=== PATIENT | male | born 1945 | race African-American/Black ===

== ENCOUNTER 2018-02-03 16:44 | Inpatient (IN) | payer OTHER, MEDICARE ==
[~2018-02-03] VITALS: Ht 162.6 cm; Wt 66.2 kg
[2018-02-03 17:38] LABS: ABSOLUTE BASOPHIL COUNT 0 /CUMM (0.0-0.2); ABSOLUTE EOSINOPHIL COUNT 0 /CUMM (0.0-0.7); ABSOLUTE GRANULOCYTE CT 4.4 /CUMM (1.4-6.5); ABSOLUTE LYMPH COUNT 0.9 /CUMM (1.2-3.4); ABSOLUTE MONOCYTE COUNT 0.3 /CUMM (0.10-0.60); BASOPHIL % 0.5 % (0.0-2.0); EOSINOPHIL % 0.2 % (0-5); GRANULOCYTE % 76.9 % (42.2-75.2); HEMATOCRIT 50.8 % (42-52); MEAN CORPUSCULAR HGB 30.6 PG (27.0-31.0); MEAN CORPUSCULAR HGB CONC 31.6 G/DL (33.0-37.0); MEAN CORPUSCULAR VOLUME 96.9 FL (80.0-94.0); MEAN PLATELET VOLUME 10.9 FL (7.4-10.4); PLATELET COUNT 227 /CUMM (130-400); RBC DISTRIBUTION WIDTH 13.1 % (11.5-14.5); RED BLOOD CELL CT 5.24 /CUMM (4.70-6.10); WHITE BLOOD CELL COUNT 5.7 /CUMM (4.8-10.8)
--- NOTE | 2018-02-03 18:43 | ED GENERAL ADULT ---
History of Present Illness General Chief Complaint: General Adult Stated Complaint: HIGH BLOOD SUGAR Source: patient, family Exam Limitations: poor historian Vital Signs & Intake/Output Vital Signs & Intake/Output Vital Signs Date Time Temp Pulse Resp B/P B/P Pulse O2 O2 Flow FiO2 Mean Ox Delivery Rate 02/05 1500 98.1 68 18 120/60 97 Room Air 02/05 1155 97 Room Air 02/05 1012 74 144/90 02/05 0714 98.4 74 18 144/90 93 02/04 2241 98.9 80 24 158/90 97 02/04 2114 77 158/90 ED Intake and Output 02/05 0000 02/04 1200 Intake Total 2050 1716 Output Total 450 300 Balance 1600 1416 Intake, IV 1000 1716 Intake, Oral 1050 Number 0 Bowel Movements Output, Urine 450 300 Patient 130 lb 132 lb Weight Weight Bed scale Measurement Method Allergies Coded Allergies: No Known Allergies (02/03/18) Reconcile Medications Amlodipine Besylate 5 MG TABLET 1 TAB PO DAILY BP (Reported) Aspirin (Ecotrin*) 81 MG TABLET.DR 1 TAB PO DAILY HEART/BLOOD (Reported) Atorvastatin Calcium (Lipitor) 40 MG TABLET 1 TAB PO DAILY CHOLESTEROL ( Reported) Fosinopril Sodium 20 MG TABLET 1 TAB PO DAILY BP (Reported) Metformin HCl (Glucophage) 850 MG TABLET 1 TAB PO BID DM (Reported) Metoprolol Tartrate 25 MG TABLET 1 TAB PO BID HEART/BP (Reported) Multiple Vitamin (Multivitamins) 1 EACH TABLET 1 TAB PO DAILY SUPPLEMENT ( Reported) Triage Note: [facility] FOR HIGH BLOOD SUGAR. PT IS VISITING FROM [place], C/O FEELING WEAK AND TIRED. PT WENT TO HIS DAUGHTER'S DOCTOR AND WAS TOLD HE HAD HIGH BLOODSUGAR AND WAS DEHYDRATED. FINGERSTICK > 500 IN TRIAGE. Triage Nurses Notes Reviewed? yes Onset: Last week Duration: week(s): Injury Environment: home HPI: 72 year old male with history of diabetes, former smoker, and two heart surgeries (patient unable to verbalize why and when) was sent to the emergency room by his primary care provider for dehydration. His blood sugar was > 500 at around 11:30 this morning. He recently came to visit his family here from [place]. His granddaughter states that he is only on oral medications and is non- compliant. He endorses sore throat, productive cough, unable to eat secondary to sore throat, thirsty, dysuria, frequent urination, constipation, vomiting earlier today (food) general weakness and body pain. He denies fevers, chills, chest pain, headache, dizziness, or diarrhea. He states he had the flu shot this year. (Berto Serrano) Past History Travel History Traveled to [place] past 21 day No Medical History Any Pertinent Medical History? see below for history Endocrine: diabetes Surgical History Surgical History: non-contributory Psychosocial History What is your primary language Turkish Tobacco Use: Quit >30 days ago ETOH Use: denies use Illicit Drug Use: denies illicit drug use Family History Hx Contributory? No (Berto Serrano) Review of Systems Review of Systems Constitutional: Reports: see HPI. EENTM: Reports: see HPI. Respiratory: Reports: see HPI. Cardiovascular: Reports: no symptoms. GI: Reports: see HPI. Genitourinary: Reports: see HPI. Musculoskeletal: Reports: see HPI. Skin: Reports: no symptoms. Neurological/Psychological: Reports: no symptoms. Hematologic/Endocrine: Reports: no symptoms. Immunologic/Allergic: Reports: no symptoms. All Other Systems: Reviewed and Negative (Berto Serrano) Physical Exam Physical Exam General Appearance: alert, awake Head: atraumatic, normal appearance Eyes: Bilateral: normal appearance. Ears, Nose, Throat: pharyngeal erythema, dry mucous membranes Neck: normal inspection, supple, full range of motion Respiratory: no respiratory distress, decreased breath sounds Cardiovascular: tachycardia Gastrointestinal: diffuse lower abdominal tenderness Back: decreased range of motion Extremities: normal inspection Neurologic/Psych: awake, alert, oriented x 3 Skin: intact Core Measures ACS in differential dx? No CVA/TIA Diagnosis: No Sepsis Present: No Sepsis Focused Exam Completed? No (Berto Serrano) Progress Differential Diagnoses I considered the following diagnoses in my evaluation of the patient: DKA, hyperosmolar, dehydration, acute kidney injury, electrolyte imbalance, Plan of Care: Orders Procedure Date/time Status BASIC ELECTROLYTES PLUS BUN&CR 02/06 0600 Active TROPONIN LEVEL 02/05 0555 Complete EKG 02/05 UNK Active RT: Reevaluation 02/04 2125 Active Current Medications Sig/Travon Start time Last Medication Dose Stop Time Status Admin Nitroglycerin 0.4 MG DAILY 02/06 0900 AC (Transderm Nitro 10MG (0.4 MG/Hr) Patch) Phosphate 250 MG PC AND AT BEDTIME 02/05 1300 AC 02/05 (Neutra-Phos) 1714 Insulin Aspart 0 TIDAC/HS 02/05 1200 AC 02/05 (NovoLOG) 1714 Heparin Sodium 5,000 UNIT Q8 02/04 1400 AC 02/05 (Porcine) 1324 Albuterol Sulfate 3 ML Q4P PRN 02/04 1045 AC 02/04 (Proventil) 1035 Amlodipine Besylate 5 MG DAILY 02/04 0900 AC 02/05 (Norvasc) 1012 Aspirin Buffered 81 MG DAILY 02/04 0900 AC 02/05 (Ecotrin) 1012 Atorvastatin Calcium 40 MG DAILY 02/04 0900 AC 02/05 (Lipitor) 1012 Benzonatate 100 MG TID 02/04 0900 AC 02/05 (Tessalon Capsule) 1325 Nystatin 5 ML BID 02/04 0900 AC 02/05 (Mycostatin Susp) 1013 Insulin Detemir 10 UNITS BID 02/04 0830 AC 02/05 (Levemir) 1018 Metoprolol Tartrate 25 MG BID 02/04 0011 AC 02/05 (Lopressor) 1012 Laboratory Tests 02/05/18 0625: Troponin I 0.02 02/05/18 0625: Anion Gap 8, Estimated GFR > 60, Glucose 242 H, Calcium 9.0, Phosphorus 2.3 L, Magnesium 1.8, Total Bilirubin 0.7, AST 28, ALT 34, Albumin 3.0 L, CBC w Diff NO MAN DIFF REQ, RBC 4.50 L, MCV 92.4, MCH 30.9, MCHC 33.5, RDW 12.3, MPV 10.6 H, Gran % 44.8, Lymphocytes % 44.7, Monocytes % 6.0, Eosinophils % 3.9, Basophils % 0.6, Absolute Granulocytes 1.7, Absolute Lymphocytes 1.7, Absolute Monocytes 0.2, Absolute Eosinophils 0.1, Absolute Basophils 0 Initial ED EKG: normal sinus rhythm, rate (88) (Berto Serrano) Departure Departure Disposition: STILL A PATIENT Condition: Stable Clinical Impression Primary Impression: Hyperosmolar non-ketotic state in patient with type 2 diabetes mellitus Secondary Impressions: Acute kidney injury, Hyponatremia Referrals: Patient Has No Primary Care Dr (PCP/Family) Departure Forms: Customer Survey General Discharge Information Admission Note Spoke With: Victorina Mart MD Documentation of Exam: Documentation of any treatments & extenuating circumstances including Concerns Regarding Discharge (functional status, medication knowledge or non-compliance, living conditions, etc.) that warrant an admission rather than observation: Patient will require IV fluids. Insulin drip. Endocrine consult. Repeat labs. Critical care management. (Berto Serrano) PA/[employer]EL[employer] Co-Sign Statement Statement: ED Attending supervision documentation- x I saw and evaluated the patient. I have also reviewed all the pertinent lab results and diagnostic results. I agree with the findings and the plan of care as documented in the PA's/[employer]EL[employer]'s documentation. Polyphagia, polydipsia, polyuria with elevated BS: HNKK [] I have reviewed the ED Record and agree with the PA's/[employer]EL[employer]'s documentation. [] Additions or exceptions (if any) to the PAs/[employer]EL[employer]'s note and plan are summarized below: [] (My CAO,David) Critical Care Note Critical Care Note Critical Care Time: 30-74 min (60) (Berto Serrano) VTE Mechanical Prophylaxis 02/03 UNK Active Current Medications Sig/Travon Start time Last Medication Dose Stop Time Status Admin Potassium Chloride 20 MEQ Q13H 02/04 1200 AC (KCl 20MEQ in D5W 1/ 2NS 1000ML) Dextrose/Sodium 1,000 ML Chloride (D5W-1/2 Normal Saline 1000ML) Insulin Aspart 0 Q4 02/04 1000 UNVr (NovoLOG) Amlodipine Besylate 5 MG DAILY 02/04 09 AC (Norvasc) Aspirin Buffered 81 MG DAILY 02/04 0900 AC (Ecotrin) Atorvastatin Calcium 40 MG DAILY 02/04 0900 AC (Lipitor) Insulin Detemir 10 UNITS BID 02/04 0830 UNVr (Levemir) Insulin Aspart 0 TIDAC 02/04 0800 CAN (NovoLOG) Nitroglycerin 0.5 GM Q6P PRN 02/04 0400 AC (Nitro-Bid) Dextrose/Sodium 1,000 ML Q10H 02/04 0145 CAN Chloride (D5W-1/2 Normal Saline 1000ML) Potassium Chloride 20 MEQ 02/04 0145 CAN (KCl 20MEQ in D5W 1/ 2NS 1000ML) Potassium Chloride 20 MEQ ONCE ONE 02/04 0145 AC 02/04 (KCl 20MEQ in D5W 02/04 1159 0145 2NS 1000ML) Dextrose/Sodium 1,000 ML Chloride (D5W-1/2 Normal Saline 1000ML) Metoprolol Tartrate 25 MG BID 02/04 0011 AC 02/04 (Lopressor) 0114 Heparin Sodium 25,000 UNIT Q24H 02/03 2215 AC 02/03 (Porcine) 222 (Heparin) Sodium Chloride 500 ML Labetalol HCl 10 MG ONCE ONE 02/03 2200 CAN (Trandate) 02/03 2201 Insulin Human Regular 100 UNIT Q24H 02/03 191 AC 02/03 (Novolin R (Insulin 2111 Drip)) Sodium Chloride 100 ML (Normal Saline 0.9%) Laboratory Tests 02/04/18 0500: APTT 104 *H 02/04/18 0430: Anion Gap 12, Estimated GFR > 60, Glucose 222 H, Calcium 9.5, Phosphorus 2.4 L , Magnesium 2.4 H, Total Bilirubin 0.7, AST 17, ALT 24, Albumin 3.5, TSH Pending, Free T4 Pending, Cortisol AM Sample Pending, CBC w Diff MAN DIFF ORDERED, RBC 4.69 L, MCV 92.9, MCH 30.8, MCHC 33.2, RDW 12.5, MPV 10.1, Gran % 49.6, Lymphocytes % 38.1, Monocytes % 8.4, Eosinophils % 3.2, Basophils % 0.7, Absolute Granulocytes 3.5, Segmented Neutrophils 47, Absolute Lymphocytes 2.7, Lymphocytes 44, Monocytes 8, Absolute Monocytes 0.6, Absolute Eosinophils 0.2, Basophils 1, Absolute Basophils 0, Platelet Estimate ADEQUATE, Normochromic RBCs VERIFIED, Ovalocytes FEW, ESR Westergren 25 H, Fld Total RBCs Counted 100 02/04/18 0300: Sodium Cancelled, Potassium Cancelled, Chloride Cancelled, Carbon Dioxide Cancelled, Anion Gap Cancelled, BUN Cancelled, Creatinine Cancelled, Glucose Cancelled, Calcium Cancelled, Phosphorus Cancelled, Magnesium Cancelled, Total Bilirubin Cancelled, AST Cancelled, ALT Cancelled, Albumin Cancelled, CBC w Diff Cancelled, WBC Cancelled, RBC Cancelled, Hgb Cancelled, Hct Cancelled, MCV Cancelled, MCH Cancelled, MCHC Cancelled, RDW Cancelled, Plt Count Cancelled, MPV Cancelled 02/04/18 0230: Lactic Acid 1.9 02/04/18 0230: Anion Gap 10, Estimated GFR > 60, Glucose 283 H, Calcium 9.3, Phosphorus 2.8, Magnesium 2.4 H, Total Bilirubin 0.7, AST 15 L, ALT 24, Albumin 3.4 L 02/04/18 0100: Troponin I Cancelled 02/04/18 0016: Lactic Acid 2.1 02/04/18 001: Anion Gap 12, Estimated GFR > 60, Glucose 389 H, Calcium 9.3, Phosphorus 2.7, Magnesium 2.4 H, Total Bilirubin 0.5, AST 13 L, ALT 26, Troponin I 0.05, C- Reactive Prot, Quant 0.7, Albumin 3.3 L 02/03/182109: Lactic Acid 2.6 H 02/03/182109: Anion Gap 15, Estimated GFR 54 L, BUN/Creatinine Ratio 24.6, Glucose 617 *H, Troponin I 0.05 02/03/18 194: Urine Opiates Screen < 100, Methadone Screen < 40, Barbiturate Screen < 60, Ur Phencyclidine Scrn < 6.00, Amphetamines Screen < 100, U Benzodiazepines Scrn < 85, Urine Cocaine Screen < 50, Urine Cannabis Screen < 5.00, Urine Color YEL, Urine Clarity HAZY H, Urine pH 6.0, Ur Specific [place] 1.010, Urine Protein NEG, Urine Ketones 15 H, Urine Nitrite NEG, Urine Bilirubin NEG, Urine Urobilinogen 0.2, Ur Leukocyte Esterase NEG, Ur Microscopic SEDIMENT EXAMINED, Urine RBC FEW H, Urine Hemoglobin TRACE-INTACT H, Urine Glucose >=1000 H 02/03/18 1705: Hemoglobin A1c Pending 02/03/18 1705: Anion Gap 20 H, Estimated GFR 46 L, BUN/Creatinine Ratio 22.7, Glucose 1197 *H , Serum Osmolality 349 H, Lactic Acid 3.2 H, Calcium 9.9, Total Bilirubin 0.8, AST 13 L, ALT 26, Alkaline Phosphatase 175 H, Troponin I 0.03, Total Protein 7.7, Albumin 4.5, Globulin 3.2, Albumin/Globulin Ratio 1.4, CBC w Diff NO MAN DIFF REQ, RBC 5.24, MCV 96.9 H, MCH 30.6, MCHC 31.6 L, RDW 13.1, MPV 10.9 H, Gran % 76.9 H, Lymphocytes % 16.5 L, Monocytes % 5.9, Eosinophils % 0.2, Basophils % 0.5, Absolute Granulocytes 4.4, Absolute Lymphocytes 0.9 L, Absolute Monocytes 0.3, Absolute Eosinophils 0, Absolute Basophils 0, Acetone Level POSITIVE AT 1:2 DIL 02/03/18 1653: Sodium Cancelled, Potassium Cancelled, Chloride Cancelled, Carbon Dioxide Cancelled, Anion Gap Cancelled, BUN Cancelled, Creatinine Cancelled, BUN/ Creatinine Ratio Cancelled, Glucose Cancelled, Calcium Cancelled, Total Bilirubin Cancelled, AST Cancelled, ALT Cancelled, Alkaline Phosphatase Cancelled, Total Protein Cancelled, Albumin Cancelled, Globulin Cancelled, Albumin/Globulin Ratio Cancelled 02/03/18 1650: Bicarbonate Actual 25, Mixed VBG pH 7.29 L, Mixed VBG pCO2 52 H, Mixed VBG O2 Saturation 42, Carboxyhemoglobin 0.8 L, O2 Concentration % R/A, Phlebotomy Draw Site VENOUS Microbiology 02/04 0430 UPPER RESP: Surveillance Culture - RECD 02/04 158 LOWER RESP: Respiratory Culture - COLB 02/04 158 LOWER RESP: Gram Stain - COLB 02/03 2215 NASOPHARYN: Influenza Virus A & B Rapid Smear - COMP Initial ED EKG: normal sinus rhythm, rate (88) Departure Departure Disposition: STILL A PATIENT Condition: Stable Clinical Impression Primary Impression: Hyperosmolar non-ketotic state in patient with type 2 diabetes mellitus Secondary Impressions: Acute kidney injury, Hyponatremia Referrals: Patient Has No Primary Care Dr (PCP/Family) Departure Forms: Customer Survey General Discharge Information Admission Note Spoke With: Barron CAO,Victorina Documentation of Exam: Documentation of any treatments & extenuating circumstances including Concerns Regarding Discharge (functional status, medication knowledge or non-compliance, living conditions, etc.) that warrant an admission rather than observation: Patient will require IV fluids. Insulin drip. Endocrine consult. Repeat labs. Critical care management. Critical Care Note Critical Care Note Critical Care Time: 30-74 min (60)
--- NOTE | 2018-02-03 19:26 | RADIOLOGY REPORT ---
EXAMINATION: XR CHEST CLINICAL INFORMATION: Cough. COMPARISON: None TECHNIQUE: 2 views of the chest were obtained. FINDINGS: The cardiac silhouette is normal in size. There is calcific atherosclerosis of the aorta. No focal consolidation to indicate pneumonia. No pleural effusion or pneumothorax. Degenerative changes of the thoracic spine. IMPRESSION: No pneumonia, pneumothorax or pleural effusion.
--- NOTE | 2018-02-03 20:22 | Admission Certification ---
Admission Certification Certification Statement - As attending physician, I certify that at the time of - admission, based on clinical presentation, severity of - symptoms, need for further diagnostic testing and - therapeutic interventions, and risk of adverse outcomes - without in-hospital treatment, in my clinical assessment, - this patient requires an acute hospital stay for a minimum - of two nights or longer. I have also considered psychsocial - factors such as support system, advanced age, financial - issues, cognitive issues, and failed out-patient treatments, - past re-admission history, safety of patient, and lack of - compliance as applicable. Specific rationale supporting this admission is: Hyperosmolar hyperglycemic state in this patient with type 2 diabetes.
--- NOTE | 2018-02-03 21:19 | History & Physical ---
Zandra Morton 02/03/182118: General Information and HPI MD Statement: I have seen and personally examined CONCEPCIÓN SCHAEFER and documented this H&P. The patient is a 72 year old M who presented with a patient stated chief complaint of Source of Information: patient, family Exam Limitations: clinical condition History of Present Illness: Mr Schaefer is a 72 year old gentleman w/ a PMHx of type 2 diabetes, former smoker, CAD s/p PCI x2 (unclear about the dates, and type of stent ), was brought to the hospital with a chief concern of elevated blood glucose by a PCP. He is originally from [facility], and has seen a PCP of one his family members the am of admission. He is a poor historian, and history was very limited given his altered mentation. He was known to be in his usual state of health, until last week. He has been visiting his son and [id number] from [place], and wanted to rest after his senior care. Reported having abdominal discomfort and chest pain approximately 6 days ago, which subsided on its own. He couldnt describe the kind of pain, he had at that time. Reported worseing of chest pain that started in the am, which was located in the center of the chest; describes it as dull ache, unable to grade the severity, with radiation to the neck. Reported chest discomfort while he was in the ER, and stated that it is improved. He did not receive any morphine or NTG. No dyspnea, or palpitations. He also developed abdominal pain around the same time, which was occassional, and unsure if this was associated w/ food. Reporeted sore throat, occasional cough and neck pain. He also had increased thirst, increased frequency of urination, nausea one episode of vomiting. No fever, chills, diarrhea. Family reported that he has been having memory lapses, and unsure if he was taking any of his medications at all. No changes in apetitie. He sees test hole driller Dr. Manuel Rodriges ( ph [phone] ), and unsure about his previous hospitalizations or work up. Allergies/Medications Allergies: Coded Allergies: No Known Allergies (02/03/18) Past History Travel History Traveled to [place] past 21 day No Medical History Cardiovascular: CAD Endocrine: diabetes Surgical History Surgical History: non-contributory Past Family/Social History Family History Relations & Conditions if any Relation not specified for: *No pertinent family history Psychosocial History ETOH Use: denies use Illicit Drug Use: denies illicit drug use Functional Ability ADLs Independent: dressing, eating, toileting, bathing. Ambulation: independent IADLs Independent: shopping, housework, finances, medication admin. Unknown: food prep, telephone, transportation. Review of Systems Review of Systems Constitutional: Reports: see HPI. Cardiovascular: Reports: chest pain. Denies: palpitations. Respiratory: Denies: cough. GI: Reports: nausea. Denies: changes in stool. Genitourinary: Denies: dysuria. Musculoskeletal: Denies: back pain. Skin: Denies: change in skin color. Neurological/Psychological: Denies: ataxia, headache, numbness. Hematologic/Endocrine: Denies: bleeding. Exam & Diagnostic Data Last 24 Hrs of Vital Signs/I&O Vital Signs Date Time Temp Pulse Resp B/P B/P Pulse O2 O2 Flow FiO2 Mean Ox Delivery Rate 02/04 0114 78 20 150/80 02/03 2349 98.6 80 20 169/84 96 Room Air 02/03 2305 98.4 77 20 117/67 96 Room Air 02/03 2209 98.2 86 20 146/78 100 Room Air 02/03 2100 98.7 85 20 174/83 94 Room Air 02/03 1952 98.0 88 22 174/84 98 Room Air 02/03 1929 96 02/03 1845 Room Air 02/03 1649 96.0 96 20 131/85 94 Room Air Intake & Output 02/04 0800 02/04 0000 02/03 1600 Intake Total 2100 Output Total 400 Balance 1700 Intake, IV 2100 Output, Urine 400 Patient 124 lb Weight Weight Reported by Patient Measurement Method Physical Exam General Appearance Oriented X3, Cooperative, No Acute Distress, sleepy, drowsy Skin No Rashes, No Breakdown, No Significant Lesion Skin Temp/Moisture Exam: Warm/Dry Sepsis Skin Exam (color): Normal for Ethnicity HEENT Atraumatic, PERRLA, EOMI, dry mucosa swelling and erythema of carito adenoids purulent streaks on the posterior pharyngeal wall, peritonisillar Neck Supple, No JVD, No thryomegaly, +2 Carotid Pulse wo Bruit, No LAD Lymphatic Axillary nl, Cervical nl Cardiovascular Regular Rate, Normal S1, Normal S2, No Murmurs Lungs Normal Air Movement Abdomen Normal Bowel Sounds, Soft, No Tenderness, No Hepatospenomegaly Neurological Normal Speech, Strength at 5/5 X4 Ext, Normal Tone, Sensation Intact, Cranial Nerves 3-12 NL, Reflexes 2+ Extremities No Clubbing, No Cyanosis, No Edema, Normal Pulses, No Tenderness/ Swelling Vascular Pulses Symmetrical Sepsis Peripheral Pulse Location: Dorsalis Pedis Sepsis Peripheral Pulse Exam: Normal Sepsis Cap Refill Exam: >2 sec Last 24 Hrs of Labs/Rajinder: Laboratory Tests 02/04/18 0100: Troponin I Cancelled 02/04/18 0016: Lactic Acid 2.1 02/04/1815: Anion Gap 12, Estimated GFR > 60, Glucose 389 H, Calcium 9.3, Phosphorus 2.7, Magnesium 2.4 H, Total Bilirubin 0.5, AST 13 L, ALT 26, Troponin I 0.05, Albumin 3.3 L 02/03/182109: Lactic Acid 2.6 H 02/03/182109: Anion Gap 15, Estimated GFR 54 L, BUN/Creatinine Ratio 24.6, Glucose 617 *H, Troponin I 0.05 02/03/18 194: Urine Opiates Screen < 100, Methadone Screen < 40, Barbiturate Screen < 60, Ur Phencyclidine Scrn < 6.00, Amphetamines Screen < 100, U Benzodiazepines Scrn < 85, Urine Cocaine Screen < 50, Urine Cannabis Screen < 5.00, Urine Color YEL, Urine Clarity HAZY H, Urine pH 6.0, Ur Specific [place] 1.010, Urine Protein NEG, Urine Ketones 15 H, Urine Nitrite NEG, Urine Bilirubin NEG, Urine Urobilinogen 0.2, Ur Leukocyte Esterase NEG, Ur Microscopic SEDIMENT EXAMINED, Urine RBC FEW H, Urine Hemoglobin TRACE-INTACT H, Urine Glucose >=1000 H 02/03/18 170: Hemoglobin A1c Pending 02/03/18 170: Anion Gap 20 H, Estimated GFR 46 L, BUN/Creatinine Ratio 22.7, Glucose 1197 *H , Serum Osmolality 349 H, Lactic Acid 3.2 H, Calcium 9.9, Total Bilirubin 0.8, AST 13 L, ALT 26, Alkaline Phosphatase 175 H, Troponin I 0.03, Total Protein 7.7, Albumin 4.5, Globulin 3.2, Albumin/Globulin Ratio 1.4, CBC w Diff NO MAN DIFF REQ, RBC 5.24, MCV 96.9 H, MCH 30.6, MCHC 31.6 L, RDW 13.1, MPV 10.9 H, Gran % 76.9 H, Lymphocytes % 16.5 L, Monocytes % 5.9, Eosinophils % 0.2, Basophils % 0.5, Absolute Granulocytes 4.4, Absolute Lymphocytes 0.9 L, Absolute Monocytes 0.3, Absolute Eosinophils 0, Absolute Basophils 0, Acetone Level POSITIVE AT 1:2 DIL 02/03/18 1653: Sodium Cancelled, Potassium Cancelled, Chloride Cancelled, Carbon Dioxide Cancelled, Anion Gap Cancelled, BUN Cancelled, Creatinine Cancelled, BUN/ Creatinine Ratio Cancelled, Glucose Cancelled, Calcium Cancelled, Total Bilirubin Cancelled, AST Cancelled, ALT Cancelled, Alkaline Phosphatase Cancelled, Total Protein Cancelled, Albumin Cancelled, Globulin Cancelled, Albumin/Globulin Ratio Cancelled 02/03/18 1650: Bicarbonate Actual 25, Mixed VBG pH 7.29 L, Mixed VBG pCO2 52 H, Mixed VBG O2 Saturation 42, Carboxyhemoglobin 0.8 L, O2 Concentration % R/A, Phlebotomy Draw Site VENOUS Microbiology 02/04 015 LOWER RESP: Respiratory Culture - ORD 02/04 158 LOWER RESP: Gram Stain - ORD 02/03 2215 NASOPHARYN: Influenza Virus A & B Rapid Smear - COMP Diagnostic Data EKG Results NSR, ST elevations in V1-V4, unsure if they are chronic. CXR Results No pneumonia, pneumothorax or pleural effusion. Assessment/Plan Assessment: Mr Schaefer is a 72-year-old gentleman with a past history of type 2 diabetes, coronary artery disease status post PCI stents (nature of stents unknown), medication noncompliance came into the hospital with a chief concern of hyperglycemia, chest pain, abdominal pain associated with nausea and vomiting likely secondary to HHS. At the time of [id number] 96.0, pulse rate 96, respiration 20, blood pressure 131/85, pulse ox 94% on room air. Stool hemoccult negative. EKG revealed NSR, ST evevations in V1-V4, which could be related to LVH associated depolarizations usually seen in hypertenive patients, but STEMI is not completely ruled out. Pertinent lab findings: WBC 5.7, hemoglobin 6.1, MCV 96.9, platelet count 227. Sodium 127 (corrected sodium- 144), potassium 6.2, chloride 83, carbon dioxide 24, anion gap 20, BUN 34, creatinine 1.5. Glucose 1197, hemoglobin [id number], serum osmolality 349, lactic acid 3.2, Liver chemistries-AST 13, ALT 26, alkaline phosphatase is 175, troponin I-0.03. Venous pH 7.29. Acetone positive. Serum osmolality 330. Lactic acid 3.2-->2.6-->2.1. Utox negative for opiates. Influenza, strep throat negative. Etiology in this case is likely HHS, given high blood glucose, and serum osmolality; the cause of HHS is due to medication noncompliance secondary to dementia or increasing confusion related to age. Other causes such as infection , myocardial infarction are not completely ruled out. He has sore throat, but influenza and strep throat have been negative so far. Other sources of infection are not evident at this time. For the treatment of HHS, he should be admitted to intensive care unit and aggressively hydrated with at least 2-3 L of fluid, preferably half normal saline given his corrected sodium. He should be started on regular insulin drip with 0.1 units/kilogram/hour, titrating down off drip as blood sugar allows. In regards to ST elevation changes on EKG associated with chest pain, which started almost a week ago and worsened this a.m. with no elevation in cardiac enzymes, makes us think that this could not be cardiac related; that said CO needs to be ruled out. He has a history of coronary artery disease and multiple risk factors making CO a possibility. He should be treated with aspirin, IV heparin, beta lala and statin regardless. ST elevation changes in anterior leads could likely be due to hypertrophy of left ventricle, leading to repolarization changes which according to the test hole driller are seen in certain patients. EKG was reviewed with the test hole driller, Dr. Kraus. Given his hyperosmolar state, he is also at risk of developing venous thromboembolism, and does has to be started on IV heparin. The data regarding regular for dose anticoagulation in patients such as these, is not very clear, which needs to be addressed as [id number] basis. Discussed with the spinner hydraulic about anticoagulation. Problem list: #1 unstable angina #2 HHS #3 hypertension #4 hyperlipidemia #5. ARTEM ? #6 Hyperkalemia likely due to electrolyte shifts. Below is the plan: 1. Respiratory-continues to have dry cough, with no leukocytosis and normal chest x-ray, would continue to monitor closely. Does not require any supplemental oxygen at this time. Strep throat has been negative, but would benefit from checking lower respiratory cultures if the patient developed any fever or shortness of breath. No antibiotics are indicated at this time. Chloraseptic lozenges. 2. Infectious-monitor white count closely. No antibiotics are indicated. Given his pain in his neck, would add neck CT to already existing order of CTA. Requested the radiologist to get enough images to visualize neck architecture, and avoid excessive radiation by ordering another test. 3. Circulatory-given ST elevation changes, and chest pain he needs to be ruled out for CO. Given the onset of symptoms, the troponins would've peaked by now, which is not the case making CO unlikely. Regardless cardiac enzymes and electrocardiograms need to be trended. Check echocardiogram. Obtain medical records from the test hole driller. Unsure if the patient had any cardiac catheterization recently, or had any stress test. If the patient develops any worsening chest pain, has elevated troponins, Dr. Kraus needs to be contacted. Since the blood pressure was elevated at the time of presentation, aortic dissection was considered in the differential. Check CTA to rule out dissection of aorta. Restart home doses of anti-hypertensives except lisinopril. 4. Hematology-stable at this time. 5. Metabolic-management of HHS with intravenous fluids, half-normal saline and insulin drip. Titrate down insulin drip to decrease the blood sugar levels appropriately. Change the intravenous fluids to D5 half normal at 300 mg/ deciliters of blood sugar. Would change the insulin to subcutaneous insulin in the a.m. with a correction factor of at least 0.3. Hold metformin at this time. He has slight elevation in serum creatinine which need to be monitored closely. It also should be kept in mind, that he received IV contrast recently. Replete electrolytes accordingly. BEP q2hr, and check anion gap. Accuchecks q1hr. 6. Alimentary-clear liquid diet. 7. Neurology-stable at this time. Housekeeping: #1 DVT prophylaxis-IV heparin. #2 full code. ICU check list- #1 Central line- none #2 Arterial line none #3 Stevens catheter none #4 Rectal tube none #5 NG tube none #6 IV/peripheral line- yes 02/03/18 #7 IV drips- 1/2 NS. #8 Vent settings: none. #9 pressors- none. As Ranked By This Provider Problem List: 1. Hyponatremia 2. Acute kidney injury Core Measures/Misc (07/04) Acute Coronary Syndrome ACS Diagnosis: Yes Congestive Heart Failure Congestive Heart Failure Diagnosis No Cerebrovascular Accident CVA/TIA Diagnosis: No VTE (View Protocol) VTE Risk Factors Acute Medical Illness No Mechanical VTE Prophylaxis d/t N/A MechProphylax Ordered No VTE Pharm Prophylaxis d/t NA PharmProphylax ordered Sepsis (View protocol) Sepsis Present: No Barron CAO, [facility] 02/03/182130: General Information and HPI Allergies/Medications Home Med list Amlodipine Besylate 5 MG TABLET 1 TAB PO DAILY BP (Reported) Aspirin (Ecotrin*) 81 MG TABLET.DR 1 TAB PO DAILY HEART/BLOOD (Reported) Atorvastatin Calcium (Lipitor) 40 MG TABLET 1 TAB PO DAILY CHOLESTEROL ( Reported) Fosinopril Sodium 20 MG TABLET 1 TAB PO DAILY BP (Reported) Metformin HCl (Glucophage) 850 MG TABLET 1 TAB PO BID DM (Reported) Metoprolol Tartrate 25 MG TABLET 1 TAB PO BID HEART/BP (Reported) Multiple Vitamin (Multivitamins) 1 EACH TABLET 1 TAB PO DAILY SUPPLEMENT ( Reported) Attending MD Review Statement Attending Statement Attending MD Statement: examined this patient, discuss w/resident/PA/WOMEN'S HEALTH CARE NURSE PRACTITIONER, agreed w/resident/PA/WOMEN'S HEALTH CARE NURSE PRACTITIONER, discussed with family, reviewed images, amended to note Attending Assessment/Plan: 72 yo M former smoker with h/o T2DM on metformin, CAD s/p 2 stents, HTN, possible stroke, is sent in by PCP for elevated blood glucose levels. Patient is resident of [facility] and follows physicians there. His Balloon Maker is Dr. Teddy Rodriges ([phone] at [address] [place] [address]). Patient is visiting his son/ daughter in law at [place]. Patient is a limited historian. Apparently 4 days ago, he started feeling unwell. He c/o bilateral chest pain and abdominal pain associated with an episode of nausea and vomiting today. His chest pain is a dullache and seems to have gotten worse today. He also reports that chest pain gets worse with coughing. Family reported he is coughing up white to yellow phlegm. C/o subjective fever, no chills. He also c/o sore throat , dry mouth, left sided neck pain with difficulty swallowing/ inability to eat. Reports polyuria and polydipsia. Constipation+. Tends to fall asleep frequently. His voice is garbled which family reports is new due to his sore throat and dry mouth. No facial droop, weakness or stroke like symptoms. Family is not aware of his medical conditions and what medications he takes until today. They feel he has not been taking his medications. He also has memory issues and is forgetful. He is an ex-smoker (>20 yrs ago), and drinks alcohol occasionally. Vitals: afebrile, HR 70-90's, BP 150/80, sats 96% RA. Exam as above. Labs: no leukocytosis, H/H 16.1/50.8, MCV 96.9, Na 127, K 6.2, bicarb 24, AG 20, BUN 34, creat 1.5, glucose 1197, S. Osm 349, lactic acid 3.2, LFTs normal, trop 0.03. Urine glucosuria. Urine tox negative. Acetone positive. Influenza and strep throat is negative. VB.29/52/42/25. CXR: no pneumonia or pleural effusion. EKG: sinus rhythm with ST elevations noted in V1-V4, LVH, Qtc 421 (no old EKG to compare). Repeat EKG showed similar ST elevations in V2-V5, now with TWI in inferior leads. Assessment and plan: 1. Hyperosmolar hyperglycemic states in a type 2 diabetic male 2/2 noncompliance with medications 2. Hyperkalemia 3. High AG metabolic acidosis, lactic acidosis 4. Pseudohyponatremia 5. Acute EKG changes, unstable angina, cannot rule out pericarditis (although EKG is not showing typical changes). Alternatively these could be LVH induced changes. 6. History of CAD s/p stents 7. ARTEM 8. Productive cough, possible bronchitis, Flu and strep negative. Cannot rule out oral thrush. 9. Essential hypertension - Admit to ICU - Vitals Q1 hour - Accucheks Q1 - Patient received 3 L NS --> will change to Half normal saline - Trend lactic acid - Insulin drip at 5/hr, titrate based on sugars - Check HbA1c - ICU bundle Q2 hours - Once sugars <250 change fluids to D5 1/2NS @ 250/hr - Clear liquid diet - Endo consult (Dr. Booth) - Plan to transition to novolog SS in AM - Serial EKG and troponin - Check lipid panel, TSH, free T4 - Obtain echocardiogram - Aspirin 325 mg followed by 81 mg daily - Cardio consult (Dr. Kraus) informed of EKG changes - IV heparin initiated given unstable angina and that patients with hyperosmolar hyperglycemia are at increased risk for VTE - Guaiac all stools (initial guaiac negative) - CTA with aortic dissection protocol, also to include the neck region to assess for any abnormality - Continue metoprolol and statin - O2 supplementation - Will add nitropaste - Obtain records from Balloon Maker at [facility] - [facility] consult - Symptomatic treatment of cough/bronchitis with nebs and cough suppressants. - Check sputum culture - Add Oral swish and swallow, lozenges. - Check urine lytes, trend renal functions after aggressive hydration - Hold fosinopril and metformin given ARTEM, avoid nephrotoxic meds - Stevens catheter to monitor I/O's - GI ppx - IV PPI - If any acute change in mental status, please obtain CT head DVT ppx IV heparin. Full code. TTS > 65 mins CTA: 1. No aortic dissection. 2. Slight ectasia of the proximal aspect of the descending thoracic aorta. Otherwise unremarkable appearance of the major vasculature. 3. Mild emphysema, greatest in the upper lobes. Atelectasis in the lungs with no consolidation.
[2018-02-03] MEDS ORDERED: NORVASC10 M1 PO (21:29)
[2018-02-03] MEDS ORDERED: LIPITOR40 M1 PO (21:29)
[2018-02-03] MEDS ORDERED: MULTIVITAMINS1 EAC9 PO (21:30)
[2018-02-03] MEDS ORDERED: METOPROLOL TART25 M1 PO (21:30)
[2018-02-03] MEDS ORDERED: AMLODIPINE BESYL5 M1 PO (21:30)
[2018-02-03] MEDS ORDERED: GLUCOPHAGE850 M2 PO (21:32)
[2018-02-03] MEDS ORDERED: ASPIRIN EC81 M1 PO (21:32)
[2018-02-03] MEDS ORDERED: FOSINOPRIL SODI20 M1 PO (21:32)
--- NOTE | 2018-02-04 00:03 | CT SCAN REPORT ---
STUDY PERFORMED: CTA OF THE CHEST WITH AND WITHOUT CONTRAST CLINICAL INFORMATION: Chest pain with EKG changes. DESCRIPTION: Initial noncontrast CT of the chest was performed. Contrast timing was performed at the level of the distal descending thoracic aorta. Subsequently, arterial phase multidetector volumetric imaging was performed through the chest following the administration of 95 mL Optiray 320 intravenous contrast. No contrast reaction reported Sagittal and coronal reformatted images were obtained on the technologist workstation. Three-dimensional MIP reformatted imaging was performed and reviewed. Total exam dose-length product 372 mGy-cm COMPARISON: Chest radiograph from today FINDINGS: Vascular: 1. The ascending thoracic aorta is normal in course and caliber without evidence of dissection. Coronary artery calcifications are present. 2. The aortic arch is normal in course and caliber without evidence of dissection. There is 2 vessel branching configuration of the arch with common origin of the left common carotid artery and innominate artery. The great vessel origins are widely patent. 3. There is slightly ectatic appearance of the proximal aspect of the descending thoracic aorta immediately beyond the aortic arch. The distal aspect of the arch measures 1.9 cm in diameter. The proximal descending thoracic aorta measures up to 2.7 cm. At the level of the mid descending thoracic aorta, this measures 2.1 cm, with the distal descending thoracic aorta measuring 2.1 cm as well. There is no dissection. 4. The visualized abdominal aorta is unremarkable. 5. There is no central pulmonary embolism. Nonvascular: CHEST: The central airways are patent. There is mild centrilobular emphysema. Minimal dependent atelectasis bilaterally. Linear atelectasis in the right middle lobe and lingula. No dense consolidation. No pneumothorax or pleural effusion. The heart is mildly prominent. No pericardial effusion. There is no mediastinal, hilar or axillary lymphadenopathy. There are no chest wall masses. UPPER ABDOMEN: Unremarkable. OSSEOUS STRUCTURES: No acute or suspicious osseous abnormality. Mild degenerative changes in the spine. IMPRESSION: 1. No aortic dissection. 2. Slight ectasia of the proximal aspect of the descending thoracic aorta. Otherwise unremarkable appearance of the major vasculature. 3. Mild emphysema, greatest in the upper lobes. Atelectasis in the lungs with no consolidation.
--- NOTE | 2018-02-04 03:03 | Event Note ---
Event Note Event Note: Situation: Spoke to Dr Booth about transitioning the patient to [place] insulin and whether his diet could be restarted. Brief: Per phone conversation, Dr Booth recommended that the patient can be started on 20 KCl in D5-1/2 NS @100ml/hr and to continue the insulin drip overnight. Target blood glucose is to be between 120-180. The patient can be transitioned to [place] insulin in the am with breakfast. He can take PO water but his diet should be resumed from breakfast.
[2018-02-04 03:09] VITALS: BP 150/80
[2018-02-04 05:00] LABS: ABSOLUTE BASOPHIL COUNT 0 /CUMM (0.0-0.2); ABSOLUTE EOSINOPHIL COUNT 0.2 /CUMM (0.0-0.7); ABSOLUTE GRANULOCYTE CT 3.5 /CUMM (1.4-6.5); ABSOLUTE LYMPH COUNT 2.7 /CUMM (1.2-3.4); ABSOLUTE MONOCYTE COUNT 0.6 /CUMM (0.10-0.60); BASOPHIL % 0.7 % (0.0-2.0); EOSINOPHIL % 3.2 % (0-5); GRANULOCYTE % 49.6 % (42.2-75.2); MEAN CORPUSCULAR HGB 30.8 PG (27.0-31.0); MEAN CORPUSCULAR HGB CONC 33.2 G/DL (33.0-37.0); MEAN CORPUSCULAR VOLUME 92.9 FL (80.0-94.0); MEAN PLATELET VOLUME 10.1 FL (7.4-10.4); PLATELET COUNT 218 /CUMM (130-400); RBC DISTRIBUTION WIDTH 12.5 % (11.5-14.5); RED BLOOD CELL CT 4.69 /CUMM (4.70-6.10)
[2018-02-04 05:08] LABS: HEMATOCRIT 43.5 % (42-52)
[2018-02-04 07:07] LABS: PTT 104 SEC (25-37)
--- NOTE | 2018-02-04 07:56 | Cons- Endocrinology ---
General Information and HPI Consulting Request Date of Consult: 02/04/18 Requested By: medical team Reason for Consult: Hyperglycemic hyperosmolar state Source of Information: patient, family Exam Limitations: poor historian History of Present Illness: This 72-year-old male was brought to the emergency room by his granddaughter because he was feeling weak and tired. He was brought up from [facility] by his son on the Wednesday prior to admission. His son noted during the drive he had a lot of increased urination and he had to stop 3 times for a trip to the bathroom. Patient apparently had some abdominal discomfort and some chest pain and also some constipation. When he was brought to the emergency room where he was found to have a very high sugar of 1197. The patient has a known history of type 2 diabetes and was on metformin. He was not however checking his blood sugar. He also has a history of coronary artery disease status post stents. His son states he has been told that he had a recent colonoscopy which was negative. During the night the patient was treated with IV fluids and then IV insulin drip. She is presently on D5 half-normal saline with 20 mEq KCl and an insulin drip at 2 U/h. Allergies/Medications Allergies: Coded Allergies: No Known Allergies (02/03/18) Home Med List: Amlodipine Besylate 5 MG TABLET 1 TAB PO DAILY BP (Reported) Aspirin (Ecotrin*) 81 MG TABLET.DR 1 TAB PO DAILY HEART/BLOOD (Reported) Atorvastatin Calcium (Lipitor) 40 MG TABLET 1 TAB PO DAILY CHOLESTEROL ( Reported) Fosinopril Sodium 20 MG TABLET 1 TAB PO DAILY BP (Reported) Metformin HCl (Glucophage) 850 MG TABLET 1 TAB PO BID DM (Reported) Metoprolol Tartrate 25 MG TABLET 1 TAB PO BID HEART/BP (Reported) Multiple Vitamin (Multivitamins) 1 EACH TABLET 1 TAB PO DAILY SUPPLEMENT ( Reported) Current Medications: Current Medications Sig/Travon Start time Last Medication Dose Route Stop Time Status Admin Albuterol Sulfate 3 ML ONCE ONE 02/03 1845 DC 02/03 INH 02/03 Amlodipine Besylate 5 MG DAILY 02/04 900 AC PO Aspirin Buffered 81 MG DAILY 02/04 900 AC PO Aspirin Buffered 325 MG ONCE ONE 02/03 2130 DC 02/03 PO 02/03 2131 232 Atorvastatin Calcium 40 MG DAILY 02/04 900 AC PO Calcium Gluconate 0 .STK-MED ONE 02/03 1934 DC IV Calcium Gluconate 1 GM ONCE ONE 02/03 191 DC 02/03 Sodium Chloride 100 ML IV 02/03 2014 195 Dextrose/Sodium 1,000 ML Q10H 02/04 0145 CAN Chloride IV Heparin Sodium 25,000 UNIT Q24H 02/03 2215 AC 02/03 (Porcine) IV 2229 Sodium Chloride 500 ML Insulin Aspart 0 TIDAC 02/04 0800 CAN SC Insulin Human Regular 10 UNITS ONCE ONE 02/03 1915 DC 02/03 IV 02/03 191 195 Insulin Human Regular 100 UNIT Q24H 02/03 1915 AC 02/03 Sodium Chloride 100 ML IV 211 Labetalol HCl 10 MG ONCE ONE 02/03 220 CAN IV 02/03 220 Metoprolol Tartrate 25 MG BID 02/04 0011 AC 02/04 PO 0114 Nitroglycerin 0.5 GM Q6P PRN 02/04 0400 AC TOP Potassium Chloride 20 MEQ Q13H 02/04 1200 AC Dextrose/Sodium 1,000 ML IV Chloride Potassium Chloride 10 MEQ Q1H 02/04 0545 DC IV 02/04 0646 Potassium Chloride 20 MEQ 02/04 0145 CAN IV Potassium Chloride 20 MEQ ONCE ONE 02/04 0145 AC 02/04 Dextrose/Sodium 1,000 ML IV 02/04 1159 0145 Chloride Sodium Chloride 1,000 ML Q8H 02/03 2200 DC IV 02/04 0159 Sodium Chloride 1,000 ML Q20H 02/03 2100 DC 02/03 IV 02/04 0059 2112 Sodium Chloride 1,000 ML BOLUS ONE 02/03 1800 DC 02/03 IV 02/03 185 1829 Sodium Chloride 1,000 ML BOLUS ONE 02/03 1800 DC 02/03 IV 02/03 185 195 Review of Systems Review of Systems Constitutional: Denies: chills, fever. Cardiovascular: Reports: chest pain. Respiratory: Denies: cough, short of breath. GI: Reports: constipation. Genitourinary: Reports: frequency, nocturia. Past History Travel History Traveled to [place] past 21 day No Medical History Cardiovascular: CAD Endocrine: diabetes Surgical History Surgical History: non-contributory Family History Relations & Conditions If Any: Relation not specified for: *No pertinent family history Psychosocial History Where Do You Live? Home Smoking Status: Never Smoked ETOH Use: denies use Illicit Drug Use: denies illicit drug use Functional Ability ADLs Independent: dressing, eating, toileting, bathing. Ambulation: independent IADLs Independent: shopping, housework, finances, medication admin. Unknown: food prep, telephone, transportation. Exam & Diagnostic Data Last 24 Hrs of Vital Signs/I&O Vital Signs Date Time Temp Pulse Resp B/P B/P Pulse O2 O2 Flow FiO2 Mean Ox Delivery Rate 02/04 0400 98 Room Air 02/04 0326 98 Room Air 02/04 0309 96.4 78 16 150/80 98 Room Air 02/04 0200 98 Room Air 02/04 0114 78 20 150/80 04/ 2349 98.6 80 20 169/84 96 Room Air 02/03 2305 98.4 77 20 117/67 96 Room Air 02/03 2209 98.2 86 20 146/78 100 Room Air 02/03 2100 98.7 85 20 174/83 94 Room Air 02/03 1952 98.0 88 22 174/84 98 Room Air 02/03 1929 96 02/03 1845 Room Air 02/03 1649 96.0 96 20 131/85 94 Room Air Intake & Output 02/04 0800 02/04 0000 02/03 1600 Intake Total 1716 2100 Output Total 300 400 Balance 1416 1700 Intake, IV 1716 2100 Output, Urine 300 400 Patient 132 lb 124 lb Weight Weight Bed scale Reported by Patient Measurement Method Vital Signs Date Time Temp Pulse Resp B/P B/P Pulse O2 O2 Flow FiO2 Mean Ox Delivery Rate 02/04 0400 98 Room Air 02/04 0326 98 Room Air 02/04 0309 96.4 78 16 150/80 98 Room Air 02/04 0200 98 Room Air 02/04 0114 78 20 150/80 02/03 2349 98.6 80 20 169/84 96 Room Air 02/03 2305 98.4 77 20 117/67 96 Room Air 02/03 2209 98.2 86 20 146/78 100 Room Air 02/03 2100 98.7 85 20 174/83 94 Room Air 02/03 1952 98.0 88 22 174/84 98 Room Air 02/03 1929 96 04 1845 Room Air 02/03 1649 96.0 96 20 131/85 94 Room Air Intake & Output 02/04 0800 02/04 0000 02/03 1600 Intake Total 1716 2100 Output Total 300 400 Balance 1416 1700 Intake, IV 1716 2100 Output, Urine 300 400 Patient 132 lb 124 lb Weight Weight Bed scale Reported by Patient Measurement Method Physical Exam General Appearance: lethargic Head: normal appearance Neck: normal inspection Respiratory: normal breath sounds Cardiovascular: regular rate/rhythm Gastrointestinal: normal bowel sounds, soft Extremities: normal inspection Labs/Rajinder Results: Laboratory Tests 02/04 02/04 02/04 0500 0430 0300 Chemistry Sodium (137 - 145 mmol/L) 149 H Cancelled Potassium (3.5 - 5.1 mmol/L) 3.8 Cancelled Chloride (98 - 107 mmol/L) 109 H Cancelled Carbon Dioxide (22 - 30 mmol/L) 28 Cancelled Anion Gap (5 - 16) 12 Cancelled BUN (9 - 20 mg/dL) 23 H Cancelled Creatinine (0.7 - 1.2 mg/dL) 1.0 Cancelled Estimated GFR (>60 ml/min) > 60 Glucose (65 - 99 mg/dL) 222 H Cancelled Calcium (8.4 - 10.2 mg/dL) 9.5 Cancelled Phosphorus (2.5 - 4.5 mg/dL) 2.4 L Cancelled Magnesium (1.6 - 2.3 mg/dL) 2.4 H Cancelled Total Bilirubin (0.2 - 1.3 mg/dL) 0.7 Cancelled AST (17 - 59 U/L) 17 Cancelled ALT (21 - 72 U/L) 24 Cancelled Albumin (3.5 - 5.0 g/dL) 3.5 Cancelled TSH (0.270 - 4.200 uIU/mL) Pending Free T4 (0.78 - 2.44 ng/dL) Pending Cortisol AM Sample (4.46 - 22.7 ug/dL) Pending Coagulation APTT (25 - 37 SEC) 104 *H Hematology CBC w Diff MAN DIFF ORDERED Cancelled WBC (4.8 - 10.8 /CUMM) 7.0 Cancelled RBC (4.70 - 6.10 /CUMM) 4.69 L Cancelled Hgb (14.0 - 18.0 G/DL) 14.4 Cancelled Hct (42 - 52 %) 43.5 Cancelled MCV (80.0 - 94.0 FL) 92.9 Cancelled MCH (27.0 - 31.0 PG) 30.8 Cancelled MCHC (33.0 - 37.0 G/DL) 33.2 Cancelled RDW (11.5 - 14.5 %) 12.5 Cancelled Plt Count (130 - 400 /CUMM) 218 Cancelled MPV (7.4 - 10.4 FL) 10.1 Cancelled Gran % (42.2 - 75.2 %) 49.6 Lymphocytes % (20.5 - 51.1 %) 38.1 Monocytes % (1.7 - 9.3 %) 8.4 Eosinophils % (0 - 5 %) 3.2 Basophils % (0.0 - 2.0 %) 0.7 Absolute Granulocytes (1.4 - 6.5 /CUMM) 3.5 Segmented Neutrophils (42.2 - 75.2 %) 47 Absolute Lymphocytes (1.2 - 3.4 /CUMM) 2.7 Lymphocytes (20.5 - 51.1 %) 44 Monocytes (1.7 - 9.3 %) 8 Absolute Monocytes (0.10 - 0.60 /CUMM) 0.6 Absolute Eosinophils (0.0 - 0.7 /CUMM) 0.2 Basophils (0.0 - 2.0 %) 1 Absolute Basophils (0.0 - 0.2 /CUMM) 0 Platelet Estimate (ADEQUATE) ADEQUATE Normochromic RBCs VERIFIED Ovalocytes FEW ESR Westergren (0 - 10 MM) 25 H Other Body Source Fld Total RBCs Counted (%) 100 02/04 02/04 02/04 02/04 02/04 0230 0230 0100 0016 0016 Chemistry Sodium (137 - 145 mmol/L) 145 145 Potassium (3.5 - 5.1 mmol/L) 3.8 3.7 Chloride (98 - 107 mmol/L) 108 H 105 Carbon Dioxide (22 - 30 mmol/L) 28 27 Anion Gap (5 - 16) 10 12 BUN (9 - 20 mg/dL) 26 H 28 H Creatinine (0.7 - 1.2 mg/dL) 1.0 1.1 Estimated GFR (>60 ml/min) > 60 > 60 Glucose (65 - 99 mg/dL) 283 H 389 H Lactic Acid (0.7 - 2.1 mmol/L) 1.9 2.1 Calcium (8.4 - 10.2 mg/dL) 9.3 9.3 Phosphorus (2.5 - 4.5 mg/dL) 2.8 2.7 Magnesium (1.6 - 2.3 mg/dL) 2.4 H 2.4 H Total Bilirubin (0.2 - 1.3 mg/dL) 0.7 0.5 AST (17 - 59 U/L) 15 L 13 L ALT (21 - 72 U/L) 24 26 Troponin I (<0.11 ng/ml) Cancelled 0.05 C-Reactive Prot, Quant (<1.0 mg/dL) 0.7 Albumin (3.5 - 5.0 g/dL) 3.4 L 3.3 L 02/03 Chemistry Sodium (137 - 145 mmol/L) 139 Potassium (3.5 - 5.1 mmol/L) 4.2 Chloride (98 - 107 mmol/L) 99 Carbon Dioxide (22 - 30 mmol/L) 25 Anion Gap (5 - 16) 15 BUN (9 - 20 mg/dL) 32 H Creatinine (0.7 - 1.2 mg/dL) 1.3 H Estimated GFR (>60 ml/min) 54 L BUN/Creatinine Ratio (7 - 25 %) 24.6 Glucose (65 - 99 mg/dL) 617 *H Lactic Acid (0.7 - 2.1 mmol/L) 2.6 H Troponin I (<0.11 ng/ml) 0.05 Toxicology Urine Opiates Screen (>2000 NG/ML) < 100 Methadone Screen (>300 NG/ML) < 40 Barbiturate Screen (>200 NG/ML) < 60 Ur Phencyclidine Scrn (>25 NG/ML) < 6.00 Amphetamines Screen (>1000 NG/ML) < 100 U Benzodiazepines Scrn (>200 NG/ML) < 85 Urine Cocaine Screen (>300 NG/ML) < 50 Urine Cannabis Screen (>50 NG/ML) < 5.00 Urines Urine Color (YEL,AMB,STR) YEL Urine Clarity (CLEAR) HAZY H Urine pH (5.0 - 8.0) 6.0 Ur Specific [place] (1.001 - 1.035) 1.010 Urine Protein (NEG,<30 MG/DL) NEG Urine Ketones (NEG) 15 H Urine Nitrite (NEG) NEG Urine Bilirubin (NEG) NEG Urine Urobilinogen (0.1 - 1.0 EU/dl) 0.2 Ur Leukocyte Esterase (NEG) NEG Ur Microscopic SEDIMENT EXAMINED Urine RBC (0 - 5 /HPF) FEW H Urine Hemoglobin (NEG) TRACE-INTACT H Urine Glucose (N MG/DL) >=1000 H 02/03 02/03 1705 1705 Chemistry Sodium (137 - 145 mmol/L) 127 L Potassium (3.5 - 5.1 mmol/L) 6.2 *H Chloride (98 - 107 mmol/L) 83 L Carbon Dioxide (22 - 30 mmol/L) 24 Anion Gap (5 - 16) 20 H BUN (9 - 20 mg/dL) 34 H Creatinine (0.7 - 1.2 mg/dL) 1.5 H Estimated GFR (>60 ml/min) 46 L BUN/Creatinine Ratio (7 - 25 %) 22.7 Glucose (65 - 99 mg/dL) 1197 *H Hemoglobin A1c Pending Serum Osmolality (285 - 295 MOSM/KG) 349 H Lactic Acid (0.7 - 2.1 mmol/L) 3.2 H Calcium (8.4 - 10.2 mg/dL) 9.9 Total Bilirubin (0.2 - 1.3 mg/dL) 0.8 AST (17 - 59 U/L) 13 L ALT (21 - 72 U/L) 26 Alkaline Phosphatase (< 127 U/L) 175 H Troponin I (<0.11 ng/ml) 0.03 Total Protein (6.3 - 8.2 g/dL) 7.7 Albumin (3.5 - 5.0 g/dL) 4.5 Globulin (1.9 - 4.2 gm/dL) 3.2 Albumin/Globulin Ratio (1.1 - 2.2 %) 1.4 Hematology CBC w Diff NO MAN DIFF REQ WBC (4.8 - 10.8 /CUMM) 5.7 RBC (4.70 - 6.10 /CUMM) 5.24 Hgb (14.0 - 18.0 G/DL) 16.1 Hct (42 - 52 %) 50.8 MCV (80.0 - 94.0 FL) 96.9 H MCH (27.0 - 31.0 PG) 30.6 MCHC (33.0 - 37.0 G/DL) 31.6 L RDW (11.5 - 14.5 %) 13.1 Plt Count (130 - 400 /CUMM) 227 MPV (7.4 - 10.4 FL) 10.9 H Gran % (42.2 - 75.2 %) 76.9 H Lymphocytes % (20.5 - 51.1 %) 16.5 L Monocytes % (1.7 - 9.3 %) 5.9 Eosinophils % (0 - 5 %) 0.2 Basophils % (0.0 - 2.0 %) 0.5 Absolute Granulocytes (1.4 - 6.5 /CUMM) 4.4 Absolute Lymphocytes (1.2 - 3.4 /CUMM) 0.9 L Absolute Monocytes (0.10 - 0.60 /CUMM) 0.3 Absolute Eosinophils (0.0 - 0.7 /CUMM) 0 Absolute Basophils (0.0 - 0.2 /CUMM) 0 Toxicology Acetone Level (NEGATIVE) POSITIVE AT 1:2 DIL 02/03 02/03 1653 1650 Blood Gas Bicarbonate Actual (22 - 26 MEQ/L) 25 Mixed VBG pH (7.31 - 7.41 PH) 7.29 L Mixed VBG pCO2 (41 - 51 TORR) 52 H Mixed VBG O2 Saturation (35 - 45 TORR) 42 Carboxyhemoglobin (1.5 - 5.0 %) 0.8 L O2 Concentration % R/A Chemistry Sodium Cancelled Potassium Cancelled Chloride Cancelled Carbon Dioxide Cancelled Anion Gap Cancelled BUN Cancelled Creatinine Cancelled BUN/Creatinine Ratio Cancelled Glucose Cancelled Calcium Cancelled Total Bilirubin Cancelled AST Cancelled ALT Cancelled Alkaline Phosphatase Cancelled Total Protein Cancelled Albumin Cancelled Globulin Cancelled Albumin/Globulin Ratio Cancelled Miscellaneous Phlebotomy Draw Site VENOUS Assessment/Plan Assessment/Plan This 72-year-old male with a known history of type 2 diabetes presents with a hyper glycemic hyperosmolar state. He has been treated with an insulin drip during the night with improvement in his blood sugar. His electrolytes have been repleted. His sodium this morning is however elevated at 149. The patient remains somewhat lethargic. At this time we can switch the patient to subcu insulin. We can begin a diabetic diet as tolerated consistent carbohydrate 1. I would continue D5 half-normal saline with 20 of KCl at 100 cc/h until the patient is eating well.. We can begin Levemir 10 units twice a day the first dose stat. In addition we can place him on sliding scale NovoLog every 4 hours for blood sugars above 150. Sliding scale NovoLog every 4 hours should be less than 150 give no insulin, 151-200 give 3 units NovoLog, 201-250 give 4 units NovoLog, 251-300 give 5 units NovoLog, 301-350 give 6 units NovoLog, 351-400 give 7 units NovoLog. 1 hour after the first dose of Levemir and NovoLog we can shut off the insulin drip. If the patient begins to eat well, we can switch his sliding scale NovoLog to before meals and stop his IV fluids.. The patient needs further evaluation with thyroid function tests, vitamin B12, and also a cortisol level added to the morning blood. The patient still has evidence of a metabolic encephalopathy. If his mental status does not improve we should obtain a CT scan of his head. Once the patient is more active we can taper him off the heparin drip and place him on subcu heparin. Consult Acknowledgment - Thank you for your consult request.
[2018-02-04 08:00] VITALS: BP 114/68
--- NOTE | 2018-02-04 08:06 | Cons- CRCU ---
Cortney CAO,Garima 02/04/18 0806: General Information and HPI Consulting Request Date of Consult: 02/04/18 Requested By: Primary Team Reason for Consult: HHS EKG Changes Source of Information: patient Exam Limitations: poor historian History of Present Illness: Mr Schaefer is a 72 year old gentleman w/ a PMHx of type 2 diabetes, former smoker, CAD s/p PCI x2 (unclear about the dates, and type of stent ), was brought to the hospital with a chief concern of elevated blood glucose by a PCP. He is originally from [facility], and has seen a PCP of one his family members the am of admission. He is a poor historian, and history was very limited given his altered mentation. Patient mentions chest discomfort and abdominal pain a week ago that resolved on its own. Reported worseing of chest pain that started yesterday morning, which was located in the center of the chest; dull ache, unable to grade the severity , radiating to the neck. Had another episode of chest discomfort while he was in the ER, and stated that it has improved. He did not receive any morphine or NTG. No dyspnea, or palpitations. He also had increased thirst, increased frequency of urination, nausea one episode of vomiting. At the time of [id number] 96.0, pulse rate 96, respiration 20, blood pressure 131/85, pulse ox 94% on room air. Stool hemoccult negative. EKG revealed NSR, ST evevations in V1-V4, which could be related to LVH associated depolarizations usually seen in hypertenive patients, but STEMI is not completely ruled out. Pertinent lab findings: WBC 5.7, hemoglobin 6.1, MCV 96.9, platelet count 227. Sodium 127 (corrected sodium- 144), potassium 6.2, chloride 83, carbon dioxide 24, anion gap 20, BUN 34, creatinine 1.5. Glucose 1197, hemoglobin [id number], serum osmolality 349, lactic acid 3.2, Liver chemistries-AST 13, ALT 26, alkaline phosphatase is 175, troponin I-0.03. Venous pH 7.29. Acetone positive. Serum osmolality 330. Lactic acid 3.2-->2.6-->2.1. Utox negative for opiates. Influenza, strep throat negative. Allergies/Medications Allergies: Coded Allergies: No Known Allergies (02/03/18) Home Med List: Amlodipine Besylate 5 MG TABLET 1 TAB PO DAILY BP (Reported) Aspirin (Ecotrin*) 81 MG TABLET.DR 1 TAB PO DAILY HEART/BLOOD (Reported) Atorvastatin Calcium (Lipitor) 40 MG TABLET 1 TAB PO DAILY CHOLESTEROL ( Reported) Fosinopril Sodium 20 MG TABLET 1 TAB PO DAILY BP (Reported) Metformin HCl (Glucophage) 850 MG TABLET 1 TAB PO BID DM (Reported) Metoprolol Tartrate 25 MG TABLET 1 TAB PO BID HEART/BP (Reported) Multiple Vitamin (Multivitamins) 1 EACH TABLET 1 TAB PO DAILY SUPPLEMENT ( Reported) Review of Systems Review of Systems Constitutional: Reports: malaise. EENTM: Reports: no symptoms. Cardiovascular: Reports: chest pain. Respiratory: Reports: no symptoms. GI: Reports: no symptoms. Genitourinary: Reports: frequency. Musculoskeletal: Reports: no symptoms. Skin: Reports: no symptoms. Neurological/Psychological: Reports: no symptoms. Hematologic/Endocrine: Reports: no symptoms. Immunologic/Allergic: Reports: no symptoms. All Other Systems: Reviewed and Negative Past History Travel History Traveled to [place] past 21 day No Medical History Cardiovascular: CAD Endocrine: diabetes Surgical History Surgical History: non-contributory Family History Relations & Conditions If Any: Relation not specified for: *No pertinent family history Psychosocial History Where Do You Live? Home Smoking Status: Never Smoked ETOH Use: denies use Illicit Drug Use: denies illicit drug use Functional Ability ADLs Independent: dressing, eating, toileting, bathing. Ambulation: independent IADLs Independent: shopping, housework, finances, medication admin. Unknown: food prep, telephone, transportation. Exam & Diagnostic Data Last 24 Hrs of Vital Signs/I&O Vital Signs Date Time Temp Pulse Resp B/P B/P Pulse O2 O2 Flow FiO2 Mean Ox Delivery Rate 02/04 1036 Room Air Room Air 02/04 0800 98 Room Air 02/04 0800 97.3 68 18 114/68 98 Room Air 02/04 0400 98 Room Air 02/04 0326 98 Room Air 02/04 0309 96.4 78 16 150/80 98 Room Air 02/04 0200 98 Room Air 02/04 0114 78 20 150/80 02/03 2349 98.6 80 20 169/84 96 Room Air 02/03 2305 98.4 77 20 117/67 96 Room Air 02/03 2209 98.2 86 20 146/78 100 Room Air 02/03 2100 98.7 85 20 174/83 94 Room Air 02/03 1952 98.0 88 22 174/84 98 Room Air 02/03 1929 96 02/03 1845 Room Air 02/03 1649 96.0 96 20 131/85 94 Room Air Intake & Output 02/04 1600 02/04 0800 02/04 0000 Intake Total 1716 2100 Output Total 300 400 Balance 1416 1700 Intake, IV 1716 2100 Output, Urine 300 400 Patient 132 lb 124 lb Weight Weight Bed scale Reported by Patient Measurement Method Physical Exam General Appearance: well developed/nourished, alert, awake, comfortable Head: atraumatic, normal appearance Respiratory: chest non-tender, lungs clear Cardiovascular: regular rate/rhythm Gastrointestinal: normal bowel sounds, soft, non-tender Extremities: normal inspection, normal range of motion, Trace pedal edema Cranial Nerves: normal hearing, normal speech, PERRL Last 48 Hrs of Labs/Rajinder: Laboratory Tests 02/04/18 0500: APTT 104 *H 02/04/18 0430: Anion Gap 12, Estimated GFR > 60, Glucose 222 H, Calcium 9.5, Phosphorus 2.4 L , Magnesium 2.4 H, Total Bilirubin 0.7, AST 17, ALT 24, Troponin I 0.05, Albumin 3.5, TSH 1.920, Free T4 1.19, Cortisol AM Sample 20.0, CBC w Diff MAN DIFF ORDERED, RBC 4.69 L, MCV 92.9, MCH 30.8, MCHC 33.2, RDW 12.5, MPV 10.1, Gran % 49.6, Lymphocytes % 38.1, Monocytes % 8.4, Eosinophils % 3.2, Basophils % 0.7, Absolute Granulocytes 3.5, Segmented Neutrophils 47, Absolute Lymphocytes 2.7, Lymphocytes 44, Monocytes 8, Absolute Monocytes 0.6, Absolute Eosinophils 0.2, Basophils 1, Absolute Basophils 0, Platelet Estimate ADEQUATE, Normochromic RBCs VERIFIED, Ovalocytes FEW, ESR Westergren 25 H, Fld Total RBCs Counted 100 02/04/18 0300: Sodium Cancelled, Potassium Cancelled, Chloride Cancelled, Carbon Dioxide Cancelled, Anion Gap Cancelled, BUN Cancelled, Creatinine Cancelled, Glucose Cancelled, Calcium Cancelled, Phosphorus Cancelled, Magnesium Cancelled, Total Bilirubin Cancelled, AST Cancelled, ALT Cancelled, Albumin Cancelled, CBC w Diff Cancelled, WBC Cancelled, RBC Cancelled, Hgb Cancelled, Hct Cancelled, MCV Cancelled, MCH Cancelled, MCHC Cancelled, RDW Cancelled, Plt Count Cancelled, MPV Cancelled 02/04/18 0230: Lactic Acid 1.9 02/04/18 0230: Anion Gap 10, Estimated GFR > 60, Glucose 283 H, Calcium 9.3, Phosphorus 2.8, Magnesium 2.4 H, Total Bilirubin 0.7, AST 15 L, ALT 24, Albumin 3.4 L 02/04/18 0100: Troponin I Cancelled 02/04/18 0016: Lactic Acid 2.1 02/04/18 001: Anion Gap 12, Estimated GFR > 60, Glucose 389 H, Calcium 9.3, Phosphorus 2.7, Magnesium 2.4 H, Total Bilirubin 0.5, AST 13 L, ALT 26, Troponin I 0.05, C- Reactive Prot, Quant 0.7, Albumin 3.3 L 02/03/182109: Lactic Acid 2.6 H 02/03/182109: Anion Gap 15, Estimated GFR 54 L, BUN/Creatinine Ratio 24.6, Glucose 617 *H, Troponin I 0.05 02/03/18 194: Urine Opiates Screen < 100, Methadone Screen < 40, Barbiturate Screen < 60, Ur Phencyclidine Scrn < 6.00, Amphetamines Screen < 100, U Benzodiazepines Scrn < 85, Urine Cocaine Screen < 50, Urine Cannabis Screen < 5.00, Urine Color YEL, Urine Clarity HAZY H, Urine pH 6.0, Ur Specific [place] 1.010, Urine Protein NEG, Urine Ketones 15 H, Urine Nitrite NEG, Urine Bilirubin NEG, Urine Urobilinogen 0.2, Ur Leukocyte Esterase NEG, Ur Microscopic SEDIMENT EXAMINED, Urine RBC FEW H, Urine Hemoglobin TRACE-INTACT H, Urine Glucose >=1000 H 02/03/18 1705: Hemoglobin A1c 15.5 H 02/03/18 1705: Anion Gap 20 H, Estimated GFR 46 L, BUN/Creatinine Ratio 22.7, Glucose 1197 *H , Serum Osmolality 349 H, Lactic Acid 3.2 H, Calcium 9.9, Total Bilirubin 0.8, AST 13 L, ALT 26, Alkaline Phosphatase 175 H, Troponin I 0.03, Total Protein 7.7, Albumin 4.5, Globulin 3.2, Albumin/Globulin Ratio 1.4, CBC w Diff NO MAN DIFF REQ, RBC 5.24, MCV 96.9 H, MCH 30.6, MCHC 31.6 L, RDW 13.1, MPV 10.9 H, Gran % 76.9 H, Lymphocytes % 16.5 L, Monocytes % 5.9, Eosinophils % 0.2, Basophils % 0.5, Absolute Granulocytes 4.4, Absolute Lymphocytes 0.9 L, Absolute Monocytes 0.3, Absolute Eosinophils 0, Absolute Basophils 0, Acetone Level POSITIVE AT 1:2 DIL 02/03/18 1653: Sodium Cancelled, Potassium Cancelled, Chloride Cancelled, Carbon Dioxide Cancelled, Anion Gap Cancelled, BUN Cancelled, Creatinine Cancelled, BUN/ Creatinine Ratio Cancelled, Glucose Cancelled, Calcium Cancelled, Total Bilirubin Cancelled, AST Cancelled, ALT Cancelled, Alkaline Phosphatase Cancelled, Total Protein Cancelled, Albumin Cancelled, Globulin Cancelled, Albumin/Globulin Ratio Cancelled 02/03/18 1650: Bicarbonate Actual 25, Mixed VBG pH 7.29 L, Mixed VBG pCO2 52 H, Mixed VBG O2 Saturation 42, Carboxyhemoglobin 0.8 L, O2 Concentration % R/A, Phlebotomy Draw Site VENOUS Microbiology 02/03 2215 NASOPHARYN: Influenza Virus A & B Rapid Smear - COMP Assessment/Plan CRCU Impression/Plan: Mr Schaefer is a 72-year-old gentleman with a past history of type 2 diabetes, coronary artery disease status post PCI stents (nature of stents unknown), medication noncompliance came into the hospital with a chief concern of hyperglycemia, chest pain, abdominal pain associated with nausea and vomiting likely secondary to HHS. At the time of [id number] 96.0, pulse rate 96, respiration 20, blood pressure 131/85, pulse ox 94% on room air. Stool hemoccult negative. EKG revealed NSR, ST evevations in V1-V4, which could be related to LVH associated depolarizations usually seen in hypertenive patients, but STEMI is not completely ruled out. Pertinent lab findings: WBC 5.7, hemoglobin 6.1, MCV 96.9, platelet count 227. Sodium 127 (corrected sodium- 144), potassium 6.2, chloride 83, carbon dioxide 24, anion gap 20, BUN 34, creatinine 1.5. Glucose 1197, hemoglobin [id number], serum osmolality 349, lactic acid 3.2, Liver chemistries-AST 13, ALT 26, alkaline phosphatase is 175, troponin I-0.03. Venous pH 7.29. Acetone positive. Serum osmolality 330. Lactic acid 3.2-->2.6-->2.1. Utox negative for opiates. Influenza, strep throat negative. Patient is admitted to the ICU for management of following issues; # Hyperosmolar hyperglycemic states in a type 2 diabetic male 2/2 noncompliance with medications # High AG metabolic acidosis, lactic acidosis # Pseudohyponatremia - resolved # Hyperkalemia - resolved # Acute EKG changes,?? unstable angina, cannot rule out pericarditis (although EKG is not showing typical changes). Alternatively these could be LVH induced changes. # History of CAD s/p stents # ARTEM - resolved # Essential hypertension Respiratory Continues to have dry cough, with no leukocytosis and normal chest x-ray, would continue to monitor closely. Does not require any supplemental oxygen at this time. Strep throat has been negative, but would benefit from checking lower respiratory cultures if the patient developed any fever or shortness of breath. - Monitor off antibiotic - Chloraseptic lozenges. Infectious See ABove Circulatory Given ST elevation changes, and chest pain was ruled out for MS. Patient continued to have ST elevations in leads V1 to V4 negative troponins. Echocardiogram obtained showing Borderline reduced global left ventricular systolic function. Borderline normal left ventricular ejection fraction estimated at 50-55% and abnormal relaxation filling pattern of the left ventricle for age (stage 1 diastolic dysfunction). Obtain medical records from the bulldozer press operator. Unsure if the patient had any cardiac catheterization recently, or had any stress test. Since the blood pressure was elevated at the time of presentation, aortic dissection was considered in the differential. Check CTA was done to rule out dissection of aorta. Home doses of anti- hypertensives resumed except lisinopril. Patient was started to Heparin initially but was stopped in the morning because of negative troponins. Hematology; None Metabolic; HHS managed with intravenous fluids, half-normal saline and insulin drip. Insulin drip titrated down depensing on blood sugar levels. IV fluids changed to D5 half normal at 300 mg/deciliters of blood sugar. Metformin held. AG of 20 initially, likely from lactic acidosis, Gap closed once lactic acid trended down. Electrolytes repleted accordingly. - Off insulin drip - Levemir insulin 10 units twice a day - NovoLog sliding scale - Accu-Cheks - f/u Endocrinology recommendations. Alimentary Carbohydrate consistent diet. Neurology None. Nephro; ARTEM - resolved He had slight elevation in serum creatinine which could from IV contrast he recieved for CTA. - Cr currently stable. - Avoid any nephrotoxic medications. DVT prophylaxis- ALPS and subcutaneous heparin Patient is full code. Problem List: 1. Hyperosmolar non-ketotic state in patient with type 2 diabetes mellitus 2. Acute kidney injury 3. Hyponatremia Consult Acknowledgment - Thank you for your consult request. Justyn Devries MD 02/04/18 1157: Assessment/Plan CRCU Other Findings/Comments: Justyn Epps M.D. have examined this patient, reviewed available EMR data, personally reviewed images, discussed with resident/PA/TUNNEL WORKER, discussed management plan with housestaff and nursing staff, discussed managment plan all of healthcare providers, discussed management plan with patient and/or family, agreed with resident/PA/TUNNEL WORKER. The past history and parts of the chart have been autopopulated. Impression 72 year old man * in icu for hyperosmolar hyperglycemia requiring insulin drip, now resolved * increased troponins Plan -endocrinology, cardiology follow up -glucose monitoring -off insulin gtt -downgrade to telemetry TTS 35 min Consult Acknowledgment - Thank you for your consult request.
--- NOTE | 2018-02-04 10:14 | ECHOCARDIOGRAM REPORT ---
CONCEPCIÓN HANLEY Age: 72 : 1945 Gender: M Exam Date: 02/04/2018 08:39 Exam Location: [facility] Ht (in): 65 Wt (lb): 124 BSA: 1.60 BP: 114 / 68 Ordering Physician: Victorina Mart MD Referring Physician: Victorina Mart MD Technologist: Chan Bejarano [facility] Room Number: 105 Indications: Chest Pain Rhythm: Sinus Technical Quality: Fair FINDINGS Left Ventricle Normal size left ventricle. Normal left ventricular wall thickness with proximal septal thickening. Borderline reduced global left ventricular systolic function. Borderline normal left ventricular ejection fraction estimated at 50-55%. Abnormal relaxation filling pattern of the left ventricle for age (stage 1 diastolic dysfunction). Right Ventricle Normal right ventricular size and function. Right Atrium Normal right atrial size. Left Atrium Normal left atrial size. Mitral Valve Mitral valve thickened. Trace mitral regurgitation. Aortic Valve Trileaflet aortic valve. Mild aortic sclerosis. No aortic stenosis. Trace aortic regurgitation. Tricuspid Valve Structurally normal tricuspid valve. Trace tricuspid regurgitation. No evidence of pulmonary hypertension. Right ventricular systolic pressure estimated to be within the normal range at 26 mmHg. Pulmonic Valve Pulmonic valve not well visualized, grossly normal. No pulmonic regurgitation. Pericardium No pericardial effusion. Great Vessels Normal size aortic root. Normal size inferior vena cava. CONCLUSIONS Normal size left ventricle. Normal left ventricular wall thickness with proximal septal thickening. Borderline reduced global left ventricular systolic function. Borderline normal left ventricular ejection fraction estimated at 50-55%. Abnormal relaxation filling pattern of the left ventricle for age (stage 1 diastolic dysfunction). Normal right ventricular size and function. Normal Trace mitral regurgitation. Trace aortic regurgitation. Trace tricuspid regurgitation. No evidence of pulmonary hypertension. atrial size. Maurice Kraus M.D. (Electronically Signed) Final Date: 04 February 2018 10:13 MEASUREMENTS (Male / Female) Normal Values 2D ECHO LV Diastolic Diameter PLAX 4.1 cm 4.2 - 5.9 / 3.9 - 5.3 cm LV Systolic Diameter PLAX 3.0 cm 2.1 - 4.0 cm LV Fractional Shortening PLAX 26.8 % 25 - 46 % LV Ejection Fraction 2D Teich 52.8 % IVS Diastolic Thickness 0.9 cm LVPW Diastolic Thickness 0.9 cm LV Relative Wall Thickness 0.4 RV Internal Dim ED PLAX 2.5 cm 1.9 - 3.8 cm LVOT Diameter 2.2 cm Aortic Root Diameter 3.3 cm LA Systolic Diameter LX 2.8 cm 3.0 - 4.0 / 2.7 - 3.8 cm Ascending Aorta Diameter 2.6 cm DOPPLER AV Peak Velocity 117.0 cm/s AV Peak Gradient 5.5 mmHg AV Mean Velocity 81.6 cm/s AV Mean Gradient 3.0 mmHg AV Velocity Time Integral 22.4 cm AI Deceleration [place] 98.1 cm/s AI Peak Velocity 228.0 cm/s AI Pressure Half Time 681.0 ms AI Peak Gradient 20.8 mmHg LVOT Peak Velocity 72.9 cm/s LVOT Peak Gradient 2.1 mmHg LVOT Mean Velocity 42.5 cm/s LVOT Mean Gradient 1.0 mmHg LVOT Velocity Time Integral 13.8 cm LVOT Stroke Volume 52.5 cm AV Area Cont Eq vti 2.3 cm AV Area Cont Eq pk 2.4 cm MV Peak Velocity 81.6 cm/s MV Peak Gradient 2.7 mmHg MV Mean Velocity 38.0 cm/s MV Mean Gradient 1.0 mmHg Mitral E Point Velocity 37.5 cm/s Mitral A Point Velocity 77.0 cm/s Mitral E to A Ratio 0.5 MV PHT Velocity 50.4 cm/s MV Deceleration [place] 192.0 cm/s MV Pressure Half Time 78.8 ms MV Area PHT 2.8 cm MV Deceleration Time 250.0 ms TR Peak Velocity 229.0 cm/s TR Peak Gradient 21.0 mmHg Right Atrial Pressure 5.0 mmHg Pulmonary Artery Systolic Pressu 26.0 mmHg Right Ventricular Systolic Press 26.0 mmHg PV Peak Velocity 80.0 cm/s PV Peak Gradient 2.6 mmHg PV Mean Velocity 50.0 cm/s PV Mean Gradient 1.0 mmHg PV Velocity Time Integral 13.4 cm LV E' Lateral Velocity 5.8 cm/s Mitral E to LV E' Lateral Ratio 6.5 LV E' Septal Velocity 4.1 cm/s Mitral E to LV E' Septal Ratio 9.2
--- NOTE | 2018-02-04 14:07 | Cons- Cardiology ---
General Information and HPI Consulting Request Date of Consult: 02/04/18 Requested By: Justyn Devries MD Reason for Consult: Chest pain. Source of Information: patient Exam Limitations: language barrier History of Present Illness: Mr. Catracho Schaefer is a 72-year-old male of [place] descent with a history of former tobacco use, hypertension, dyslipidemia, diabetes mellitus, and coronary artery disease (s/p AL with stents x2) who, while visiting [place] from [place], [place] developed loss of appetite, nausea, and recurrent episodes of retching and who presented to the ED 02/03/2018 with complaints of chest pain. Allergies/Medications Allergies: Coded Allergies: No Known Allergies (02/03/18) Home Med List: Amlodipine Besylate 5 MG TABLET 1 TAB PO DAILY BP (Reported) Aspirin (Ecotrin*) 81 MG TABLET.DR 1 TAB PO DAILY HEART/BLOOD (Reported) Atorvastatin Calcium (Lipitor) 40 MG TABLET 1 TAB PO DAILY CHOLESTEROL ( Reported) Fosinopril Sodium 20 MG TABLET 1 TAB PO DAILY BP (Reported) Metformin HCl (Glucophage) 850 MG TABLET 1 TAB PO BID DM (Reported) Metoprolol Tartrate 25 MG TABLET 1 TAB PO BID HEART/BP (Reported) Multiple Vitamin (Multivitamins) 1 EACH TABLET 1 TAB PO DAILY SUPPLEMENT ( Reported) Review of Systems Review of Systems: A 14 point system review was obtained and was noncontributory, other than as above. Past History Travel History Traveled to [place] past 21 day No Medical History Cardiovascular: CAD, hypertension, hyperlipidemia, myocardial infarction (s/p stents x 2) Endocrine: diabetes Surgical History Surgical History: non-contributory Family History Relations & Conditions If Any: Relation not specified for: *No pertinent family history Psychosocial History Where Do You Live? Home Smoking Status: Former Smoker ETOH Use: denies use Illicit Drug Use: denies illicit drug use Functional Ability ADLs Independent: dressing, eating, toileting, bathing. Ambulation: independent IADLs Independent: shopping, housework, finances, medication admin. Unknown: food prep, telephone, transportation. Exam & Diagnostic Data Vital Signs and I&O Vital Signs Date Time Temp Pulse Resp B/P B/P Pulse O2 O2 Flow FiO2 Mean Ox Delivery Rate 02/04 1036 Room Air Room Air 02/04 0800 98 Room Air 02/04 0800 97.3 68 18 114/68 98 Room Air 02/04 0400 98 Room Air 02/04 0326 98 Room Air 02/04 0309 96.4 78 16 150/80 98 Room Air 02/04 0200 98 Room Air 02/04 0114 78 20 150/80 02/03 2349 98.6 80 20 169/84 96 Room Air 02/03 2305 98.4 77 20 117/67 96 Room Air 02/03 2209 98.2 86 20 146/78 100 Room Air 02/03 2100 98.7 85 20 174/83 94 Room Air 02/03 1952 98.0 88 22 174/84 98 Room Air 02/03 1929 96 02/03 1845 Room Air 02/03 1649 96.0 96 20 131/85 94 Room Air Intake & Output 02/04 1600 02/04 0800 02/04 0000 02/03 1600 02/03 0800 02/03 0000 Intake Total 1716 2100 Output Total 300 400 Balance 1416 1700 Intake, IV 1716 2100 Output, Urine 300 400 Patient 132 lb 124 lb Weight Weight Bed scale Reported by Patient Measurement Method Physical Exam: Well-developed, well-nourished elderly -Niuean male in no acute distress with nasal oxygen in place. Vital signs: See above. HEENT: Normocephalic, atraumatic, EOMI, slightly dry mucous membranes. Neck: No JVD, no bruits. Lungs: Clear to auscultation bilaterally. Heart: S1, S2 no murmur, gallop, or rub. PMI fifth ICS at MCL. Abdomen: Soft, nontender, positive bowel sounds. Extremities: No edema. Labs/Rajinder Results: Laboratory Tests 02/04 02/04 02/04 0500 0430 0300 Chemistry Sodium (137 - 145 mmol/L) 149 H Cancelled Potassium (3.5 - 5.1 mmol/L) 3.8 Cancelled Chloride (98 - 107 mmol/L) 109 H Cancelled Carbon Dioxide (22 - 30 mmol/L) 28 Cancelled Anion Gap (5 - 16) 12 Cancelled BUN (9 - 20 mg/dL) 23 H Cancelled Creatinine (0.7 - 1.2 mg/dL) 1.0 Cancelled Estimated GFR (>60 ml/min) > 60 Glucose (65 - 99 mg/dL) 222 H Cancelled Calcium (8.4 - 10.2 mg/dL) 9.5 Cancelled Phosphorus (2.5 - 4.5 mg/dL) 2.4 L Cancelled Magnesium (1.6 - 2.3 mg/dL) 2.4 H Cancelled Total Bilirubin (0.2 - 1.3 mg/dL) 0.7 Cancelled AST (17 - 59 U/L) 17 Cancelled ALT (21 - 72 U/L) 24 Cancelled Troponin I (<0.11 ng/ml) 0.05 Albumin (3.5 - 5.0 g/dL) 3.5 Cancelled TSH (0.270 - 4.200 uIU/mL) 1.920 Free T4 (0.78 - 2.44 ng/dL) 1.19 Cortisol AM Sample (4.46 - 22.7 ug/dL) 20.0 Coagulation APTT (25 - 37 SEC) 104 *H Hematology CBC w Diff MAN DIFF ORDERED Cancelled WBC (4.8 - 10.8 /CUMM) 7.0 Cancelled RBC (4.70 - 6.10 /CUMM) 4.69 L Cancelled Hgb (14.0 - 18.0 G/DL) 14.4 Cancelled Hct (42 - 52 %) 43.5 Cancelled MCV (80.0 - 94.0 FL) 92.9 Cancelled MCH (27.0 - 31.0 PG) 30.8 Cancelled MCHC (33.0 - 37.0 G/DL) 33.2 Cancelled RDW (11.5 - 14.5 %) 12.5 Cancelled Plt Count (130 - 400 /CUMM) 218 Cancelled MPV (7.4 - 10.4 FL) 10.1 Cancelled Gran % (42.2 - 75.2 %) 49.6 Lymphocytes % (20.5 - 51.1 %) 38.1 Monocytes % (1.7 - 9.3 %) 8.4 Eosinophils % (0 - 5 %) 3.2 Basophils % (0.0 - 2.0 %) 0.7 Absolute Granulocytes (1.4 - 6.5 /CUMM) 3.5 Segmented Neutrophils (42.2 - 75.2 %) 47 Absolute Lymphocytes (1.2 - 3.4 /CUMM) 2.7 Lymphocytes (20.5 - 51.1 %) 44 Monocytes (1.7 - 9.3 %) 8 Absolute Monocytes (0.10 - 0.60 /CUMM) 0.6 Absolute Eosinophils (0.0 - 0.7 /CUMM) 0.2 Basophils (0.0 - 2.0 %) 1 Absolute Basophils (0.0 - 0.2 /CUMM) 0 Platelet Estimate (ADEQUATE) ADEQUATE Normochromic RBCs VERIFIED Ovalocytes FEW ESR Westergren (0 - 10 MM) 25 H Other Body Source Fld Total RBCs Counted (%) 100 02/04 02/04 02/04 02/04 02/04 0230 0230 0100 0016 0016 Chemistry Sodium (137 - 145 mmol/L) 145 145 Potassium (3.5 - 5.1 mmol/L) 3.8 3.7 Chloride (98 - 107 mmol/L) 108 H 105 Carbon Dioxide (22 - 30 mmol/L) 28 27 Anion Gap (5 - 16) 10 12 BUN (9 - 20 mg/dL) 26 H 28 H Creatinine (0.7 - 1.2 mg/dL) 1.0 1.1 Estimated GFR (>60 ml/min) > 60 > 60 Glucose (65 - 99 mg/dL) 283 H 389 H Lactic Acid (0.7 - 2.1 mmol/L) 1.9 2.1 Calcium (8.4 - 10.2 mg/dL) 9.3 9.3 Phosphorus (2.5 - 4.5 mg/dL) 2.8 2.7 Magnesium (1.6 - 2.3 mg/dL) 2.4 H 2.4 H Total Bilirubin (0.2 - 1.3 mg/dL) 0.7 0.5 AST (17 - 59 U/L) 15 L 13 L ALT (21 - 72 U/L) 24 26 Troponin I (<0.11 ng/ml) Cancelled 0.05 C-Reactive Prot, Quant (<1.0 mg/dL) 0.7 Albumin (3.5 - 5.0 g/dL) 3.4 L 3.3 L 02/03 Chemistry Sodium (137 - 145 mmol/L) 139 Potassium (3.5 - 5.1 mmol/L) 4.2 Chloride (98 - 107 mmol/L) 99 Carbon Dioxide (22 - 30 mmol/L) 25 Anion Gap (5 - 16) 15 BUN (9 - 20 mg/dL) 32 H Creatinine (0.7 - 1.2 mg/dL) 1.3 H Estimated GFR (>60 ml/min) 54 L BUN/Creatinine Ratio (7 - 25 %) 24.6 Glucose (65 - 99 mg/dL) 617 *H Lactic Acid (0.7 - 2.1 mmol/L) 2.6 H Troponin I (<0.11 ng/ml) 0.05 Toxicology Urine Opiates Screen (>2000 NG/ML) < 100 Methadone Screen (>300 NG/ML) < 40 Barbiturate Screen (>200 NG/ML) < 60 Ur Phencyclidine Scrn (>25 NG/ML) < 6.00 Amphetamines Screen (>1000 NG/ML) < 100 U Benzodiazepines Scrn (>200 NG/ML) < 85 Urine Cocaine Screen (>300 NG/ML) < 50 Urine Cannabis Screen (>50 NG/ML) < 5.00 Urines Urine Color (YEL,AMB,STR) YEL Urine Clarity (CLEAR) HAZY H Urine pH (5.0 - 8.0) 6.0 Ur Specific [place] (1.001 - 1.035) 1.010 Urine Protein (NEG,<30 MG/DL) NEG Urine Ketones (NEG) 15 H Urine Nitrite (NEG) NEG Urine Bilirubin (NEG) NEG Urine Urobilinogen (0.1 - 1.0 EU/dl) 0.2 Ur Leukocyte Esterase (NEG) NEG Ur Microscopic SEDIMENT EXAMINED Urine RBC (0 - 5 /HPF) FEW H Urine Hemoglobin (NEG) TRACE-INTACT H Urine Glucose (N MG/DL) >=1000 H 02/03 02/03 1705 1705 Chemistry Sodium (137 - 145 mmol/L) 127 L Potassium (3.5 - 5.1 mmol/L) 6.2 *H Chloride (98 - 107 mmol/L) 83 L Carbon Dioxide (22 - 30 mmol/L) 24 Anion Gap (5 - 16) 20 H BUN (9 - 20 mg/dL) 34 H Creatinine (0.7 - 1.2 mg/dL) 1.5 H Estimated GFR (>60 ml/min) 46 L BUN/Creatinine Ratio (7 - 25 %) 22.7 Glucose (65 - 99 mg/dL) 1197 *H Hemoglobin A1c (4.2 - 5.8 %) 15.5 H Serum Osmolality (285 - 295 MOSM/KG) 349 H Lactic Acid (0.7 - 2.1 mmol/L) 3.2 H Calcium (8.4 - 10.2 mg/dL) 9.9 Total Bilirubin (0.2 - 1.3 mg/dL) 0.8 AST (17 - 59 U/L) 13 L ALT (21 - 72 U/L) 26 Alkaline Phosphatase (< 127 U/L) 175 H Troponin I (<0.11 ng/ml) 0.03 Total Protein (6.3 - 8.2 g/dL) 7.7 Albumin (3.5 - 5.0 g/dL) 4.5 Globulin (1.9 - 4.2 gm/dL) 3.2 Albumin/Globulin Ratio (1.1 - 2.2 %) 1.4 Hematology CBC w Diff NO MAN DIFF REQ WBC (4.8 - 10.8 /CUMM) 5.7 RBC (4.70 - 6.10 /CUMM) 5.24 Hgb (14.0 - 18.0 G/DL) 16.1 Hct (42 - 52 %) 50.8 MCV (80.0 - 94.0 FL) 96.9 H MCH (27.0 - 31.0 PG) 30.6 MCHC (33.0 - 37.0 G/DL) 31.6 L RDW (11.5 - 14.5 %) 13.1 Plt Count (130 - 400 /CUMM) 227 MPV (7.4 - 10.4 FL) 10.9 H Gran % (42.2 - 75.2 %) 76.9 H Lymphocytes % (20.5 - 51.1 %) 16.5 L Monocytes % (1.7 - 9.3 %) 5.9 Eosinophils % (0 - 5 %) 0.2 Basophils % (0.0 - 2.0 %) 0.5 Absolute Granulocytes (1.4 - 6.5 /CUMM) 4.4 Absolute Lymphocytes (1.2 - 3.4 /CUMM) 0.9 L Absolute Monocytes (0.10 - 0.60 /CUMM) 0.3 Absolute Eosinophils (0.0 - 0.7 /CUMM) 0 Absolute Basophils (0.0 - 0.2 /CUMM) 0 Toxicology Acetone Level (NEGATIVE) POSITIVE AT 1:2 DIL 02/03 02/03 1653 1650 Blood Gas Bicarbonate Actual (22 - 26 MEQ/L) 25 Mixed VBG pH (7.31 - 7.41 PH) 7.29 L Mixed VBG pCO2 (41 - 51 TORR) 52 H Mixed VBG O2 Saturation (35 - 45 TORR) 42 Carboxyhemoglobin (1.5 - 5.0 %) 0.8 L O2 Concentration % R/A Chemistry Sodium Cancelled Potassium Cancelled Chloride Cancelled Carbon Dioxide Cancelled Anion Gap Cancelled BUN Cancelled Creatinine Cancelled BUN/Creatinine Ratio Cancelled Glucose Cancelled Calcium Cancelled Total Bilirubin Cancelled AST Cancelled ALT Cancelled Alkaline Phosphatase Cancelled Total Protein Cancelled Albumin Cancelled Globulin Cancelled Albumin/Globulin Ratio Cancelled Miscellaneous Phlebotomy Draw Site VENOUS Diagnostic Data EKG Results 02/04/2018: Sinus rhythm, LVH, nondiagnostic ST elevation in diffuse leads. Lower rate when compared to prior tracing. CXR Results 02/03/2018: No pneumonia, pneumothorax or pleural effusion. Other Results Chest CTA 02/03/18: 1. No aortic dissection. 2. Slight ectasia of the proximal aspect of the descending thoracic aorta. Otherwise, unremarkable appearance of the major vasculature. 3. Mild emphysema, greatest in the upper lobes. Atelectasis in the lungs with no consolidation. Assessment/Plan Assessment/Plan [id number] w/ hx fmr tob use, HTN, HLD, DM, & CAD (s/p AL with stents x2) who, while visiting [place] from [place], [place] developed loss of appetite, nausea, & recurrent episodes of retching and who presented to the ED 02/03/2018 w/ c/o CP w/ widespread ECG changes consistent with possible ACS, who fortunately did not have a significant increase in his serial troponins. Recommendations: * Hemodynamically stable and appropriate for transfer from ICU to telemetry. * Continue present cardiac medications. * All up on endocrine recommendations. * Continue DVT prophylaxis. * Anticipate discharge soon for further outpatient evaluation/management.. Consult Acknowledgment - Thank you for your consult request.
[2018-02-04 17:03] VITALS: BP 120/72
[2018-02-04 18:07] VITALS: BP 150/80
[2018-02-04 22:41] VITALS: BP 158/90
[2018-02-05 07:14] VITALS: BP 144/90
[2018-02-05 08:28] LABS: ABSOLUTE BASOPHIL COUNT 0 /CUMM (0.0-0.2); ABSOLUTE EOSINOPHIL COUNT 0.1 /CUMM (0.0-0.7); ABSOLUTE GRANULOCYTE CT 1.7 /CUMM (1.4-6.5); ABSOLUTE LYMPH COUNT 1.7 /CUMM (1.2-3.4); ABSOLUTE MONOCYTE COUNT 0.2 /CUMM (0.10-0.60); BASOPHIL % 0.6 % (0.0-2.0); EOSINOPHIL % 3.9 % (0-5); GRANULOCYTE % 44.8 % (42.2-75.2); HEMATOCRIT 41.6 % (42-52); MEAN CORPUSCULAR HGB 30.9 PG (27.0-31.0); MEAN CORPUSCULAR HGB CONC 33.5 G/DL (33.0-37.0); MEAN CORPUSCULAR VOLUME 92.4 FL (80.0-94.0); MEAN PLATELET VOLUME 10.6 FL (7.4-10.4); PLATELET COUNT 162 /CUMM (130-400); RBC DISTRIBUTION WIDTH 12.3 % (11.5-14.5); WHITE BLOOD CELL COUNT 3.8 /CUMM (4.8-10.8)
--- NOTE | 2018-02-05 08:41 | PN- Housestaff ---
Subjective Follow-up For: -Hyperosmolar hyperglycemic state -Elevated troponins Subjective: Patient seen and examined. He is seen sitting upright in bed resting comfortably enjoying his breakfast. He appears to be in no acute distress. Reports some mild chest pain intermittently throughout the night and otherwise feels comfortable. He feels well and has no new complaints. He denies any fever, chills, shortness of breath, nausea, vomiting, or bowel/bladder complaints. Review of Systems Constitutional: Reports: see HPI. Objective Last 24 Hrs of Vital Signs/I&O Vital Signs Date Time Temp Pulse Resp B/P B/P Pulse O2 O2 Flow FiO2 Mean Ox Delivery Rate 02/05 1012 74 144/90 02/05 0714 98.4 74 18 144/90 93 02/04 2241 98.9 80 24 158/90 97 02/04 2114 77 158/90 02/04 1807 98.2 83 20 150/80 95 02/04 1703 97.2 91 26 120/72 100 Room Air Intake & Output 02/05 1600 02/05 0800 02/05 0000 Intake Total 1000 450 Output Total Balance 1000 450 Intake, IV 800 200 Intake, Oral 200 250 Number 0 Bowel Movements Patient 59.165 kg 59.165 kg Weight Physical Exam General Appearance: Alert, Oriented X3, Cooperative, No Acute Distress Other Physical Findings: -General: Well-developed, well-nourished elderly -[place]ian man in no acute distress -HEENT: NCAT, PERRLA, EOMI, anicteric sclera, moist mucous membranes -Neck: Supple, no JVD, trachea midline, no accessory respiratory muscle use -Cardio: Normal S1/S2 without murmurs/gallops/rubs; regular rate and rhythm -Pulmonary: Clear to auscultation bilaterally -Abdomen: Soft, nontender, nondistended, bowel sounds intact -Neuro: Awake and alert, cranial nerves II through XII grossly intact -Extremity is: Normal pulses, no edema Current Medications: Current Medications Sig/Travon Start time Last Medication Dose Route Stop Time Status Admin Albuterol Sulfate 3 ML Q4P PRN 02/04 1045 AC 02/04 INH 1035 Amlodipine Besylate 5 MG DAILY 02/04 0900 AC 02/05 PO 1012 Aspirin Buffered 81 MG DAILY 02/04 09 AC 02/05 PO 1012 Atorvastatin Calcium 40 MG DAILY 02/04 0900 AC 02/05 PO 1012 Benzonatate 100 MG TID 02/04 0900 AC 02/05 PO 1012 Heparin Sodium 5,000 UNIT Q8 02/04 1400 AC 02/05 (Porcine) SC 0553 Insulin Aspart 0 TIDAC/HS 02/05 1200 UNVr SC Insulin Aspart 0 Q4 02/04 1000 DC 02/05 SC 1018 Insulin Detemir 10 UNITS BID 02/04 0830 AC 02/05 SC 1018 Insulin Human Regular 100 UNIT Q24H 02/03 1915 DC 02/03 Sodium Chloride 100 ML IV 2112 Metoprolol Tartrate 25 MG BID 02/04 0011 AC 02/05 PO 1012 Nitroglycerin 0.5 GM Q6P PRN 02/04 0400 AC TOP Nystatin 5 ML BID 02/04 0900 AC 02/05 PO 1013 Pantoprazole Sodium 40 MG DAILY 02/04 0900 DC 02/05 IV 1012 Phosphate 250 MG PC AND AT BEDTIME 02/05 1300 UNVr PO Potassium Chloride 20 MEQ Q13H 02/04 1200 DC 02/05 Dextrose/Sodium 1,000 ML IV 0840 Chloride Potassium Chloride 20 MEQ ONCE ONE 02/04 0145 DC 02/04 Dextrose/Sodium 1,000 ML IV 02/04 1159 0145 Chloride Last 24 Hrs of Lab/Rajinder Results Last 24 Hrs of Labs/Mics: Laboratory Tests 02/05/18 0625: Troponin I 0.02 02/05/18 0625: Anion Gap 8, Estimated GFR > 60, Glucose 242 H, Calcium 9.0, Phosphorus 2.3 L, Magnesium 1.8, Total Bilirubin 0.7, AST 28, ALT 34, Albumin 3.0 L, CBC w Diff NO MAN DIFF REQ, RBC 4.50 L, MCV 92.4, MCH 30.9, MCHC 33.5, RDW 12.3, MPV 10.6 H, Gran % 44.8, Lymphocytes % 44.7, Monocytes % 6.0, Eosinophils % 3.9, Basophils % 0.6, Absolute Granulocytes 1.7, Absolute Lymphocytes 1.7, Absolute Monocytes 0.2, Absolute Eosinophils 0.1, Absolute Basophils 0 02/04/18 1430: APTT Cancelled Assessment/Plan Assessment: 72-year-old man with multiple medical problems significant for diabetes mellitus and coronary artery disease that is post multiple cardiac stents admitted with marketed hyperglycemia and hyperosmolar hyperglycemic state. Patient is tolerating his meals well however has persistently elevated blood sugars despite NovoLog/Levemir; he remains on intravenous fluids that contain glucose however. NovoLog is changed to a pre-meals/nighttime sliding scale with Accu-Cheks to match. Levemir is continued at the current dose. Intravenous fluids are discontinued. Patient reports mild chest pain with essentially unremarkable troponins. Per cardiology recommendations nitropaste was changed to nitroglycerin patch. Patient will have a treadmill nuclear stress test on Wednesday. Problem list -Hyperosmolar hyperglycemic state, resolved -Anion gap metabolic acidosis, resolved -Pseudohyponatremia, resolved -Hyperkalemia, resolved -Acute kidney injury, resolved -Coronary artery disease status post multiple cardiac stents -Hypertension -Hyperlipidemia Plan -Continue telemetry floor admission -Telemetry monitoring -Accu-Cheks 3 times a day before meals/at bedtime -Discontinue IV fluids -Discontinue IV Protonix -NovoLog sliding scale insulin -Levemir 10 units subcutaneous twice a day -Replete phosphorus by mouth -Continue meds: Amlodipine, aspirin, atorvastatin, metoprolol, nitroglycerin -Cardiology following for chest pain and EKG changes -Endocrinology following for hyperglycemia -Pain control with acetaminophen -Diabetic diet -DVT prophylaxis with subcutaneous heparin -Full code Problem List: 1. Hyperosmolar non-ketotic state in patient with type 2 diabetes mellitus Pain Ratin Pain Location: None Pain Goal: Remain pain free Pain Plan: See assessment Tomorrow's Labs & Rationales: BMP
--- NOTE | 2018-02-05 09:22 | PN- Diabetes ---
Assessment/Plan Diabetes Assessment: Patient states he feels better this morning. He ate well yesterday. He is still on IV fluids with D5 half-normal saline and NovoLog coverage every 4 hours as well as Levemir 10 units twice a day. His blood sugars have been running in the 250-300 range. Plan: Suggest discontinue the IV fluids. Change the NovoLog coverage to before meals. Sliding scale NovoLog before meals should be 80-150 give 4 units NovoLog, 151-200 give 6 units NovoLog, 201-250 give 7 units NovoLog, 251-300 give 8 units NovoLog, 301-350 give 9 units NovoLog , 351-400 give 10 units NovoLog. Continue Levemir 10 units twice a day. A separate bedtime sliding scale should also be written. NovoLog sliding scale at bedtime should be less than 250 give no insulin, 251-300 give 2 units NovoLog , 301-350 give 3 units NovoLog, 3 5104 100 give 4 units NovoLog. Increase activity. Continue to monitor sugars 4 times a day. Should instruct the patient and his family on how to take insulin and also we need a dietary consult. Subjective Subjective: Feels improved Review of Systems Constitutional: Denies: chills, fever. Cardiovascular: Denies: chest pain. Respiratory: Denies: short of breath. Musculoskeletal: Denies: back pain. Objective Last 24 Hrs of Vital Signs/I&O Vital Signs Date Time Temp Pulse Resp B/P B/P Pulse O2 O2 Flow FiO2 Mean Ox Delivery Rate 02/05 714 98.4 74 18 144/90 93 02/04 2241 98.9 80 24 158/90 97 02/04 2114 77 158/02/04 180 98.2 83 20 150/80 95 02/04 1703 97.2 91 26 120/72 100 Room Air 02/04 1036 Room Air Room Air Intake & Output 02/05 1600 02/05 0800 02/05 0000 Intake Total 1000 450 Output Total Balance 1000 450 Intake, IV 800 200 Intake, Oral 200 250 Number 0 Bowel Movements Patient 130 lb Weight Vital Signs Date Time Temp Pulse Resp B/P B/P Pulse O2 O2 Flow FiO2 Mean Ox Delivery Rate 02/05 0714 98.4 74 18 144/90 93 02/04 2241 98.9 80 24 158/90 97 02/044 77 158/90 04/20 1807 98.2 83 20 150/80 95 02/04 1703 97.2 91 26 120/72 100 Room Air 02/04 1036 Room Air Room Air Intake & Output 02/05 1600 02/05 0800 02/05 0000 Intake Total 1000 450 Output Total Balance 1000 450 Intake, IV 800 200 Intake, Oral 200 250 Number 0 Bowel Movements Patient 130 lb Weight Physical Exam General Appearance: alert, awake, comfortable Head: normal appearance Neck: normal inspection Cardiovascular: regular rate/rhythm Abdomen: normal bowel sounds Extremities: normal inspection Current Medications: Current Medications Sig/Travon Start time Last Medication Dose Route Stop Time Status Admin Albuterol Sulfate 3 ML Q4P PRN 02/04 1045 AC 02/04 INH 1035 Amlodipine Besylate 5 MG DAILY 02/04 0900 AC 02/04 PO 0931 Aspirin Buffered 81 MG DAILY 02/04 0900 AC 02/04 PO 0931 Atorvastatin Calcium 40 MG DAILY 02/04 0900 AC 02/04 PO 0931 Benzonatate 100 MG TID 02/04 0900 AC 02/04 PO 2113 Heparin Sodium 5,000 UNIT Q8 02/04 1400 AC 02/05 (Porcine) SC 0553 Heparin Sodium 25,000 UNIT Q24H 02/03 2215 DC 02/03 (Porcine) IV 2229 Sodium Chloride 500 ML Insulin Aspart 0 Q4 02/04 1000 AC 02/05 SC 0602 Insulin Detemir 10 UNITS BID 02/04 0830 AC 02/04 SC 2113 Insulin Human Regular 100 UNIT Q24H 02/03 1915 DC 02/03 Sodium Chloride 100 ML IV 2112 Metoprolol Tartrate 25 MG BID 02/04 0011 AC 02/04 PO 2114 Nitroglycerin 0.5 GM Q6P PRN 02/04 0400 AC TOP Nystatin 5 ML BID 02/04 0900 AC 02/04 PO 2113 Pantoprazole Sodium 40 MG DAILY 02/04 0900 AC 02/04 IV 0954 Potassium Chloride 20 MEQ Q13H 02/04 1200 AC 02/05 Dextrose/Sodium 1,000 ML IV 0840 Chloride Potassium Chloride 20 MEQ ONCE ONE 02/04 0145 DC 02/04 Dextrose/Sodium 1,000 ML IV 02/04 1159 0145 Chloride Findings Pertinent Lab/Rajinder Results: Laboratory Tests 02/05 02/05 02/04 0625 0625 1430 Chemistry Sodium (137 - 145 mmol/L) 142 Potassium (3.5 - 5.1 mmol/L) 3.8 Chloride (98 - 107 mmol/L) 106 Carbon Dioxide (22 - 30 mmol/L) 28 Anion Gap (5 - 16) 8 BUN (9 - 20 mg/dL) 11 Creatinine (0.7 - 1.2 mg/dL) 0.9 Estimated GFR (>60 ml/min) > 60 Glucose (65 - 99 mg/dL) 242 H Calcium (8.4 - 10.2 mg/dL) 9.0 Phosphorus (2.5 - 4.5 mg/dL) 2.3 L Magnesium (1.6 - 2.3 mg/dL) 1.8 Total Bilirubin (0.2 - 1.3 mg/dL) 0.7 AST (17 - 59 U/L) 28 ALT (21 - 72 U/L) 34 Troponin I Pending Albumin (3.5 - 5.0 g/dL) 3.0 L Coagulation APTT Cancelled Hematology CBC w Diff NO MAN DIFF REQ WBC (4.8 - 10.8 /CUMM) 3.8 L RBC (4.70 - 6.10 /CUMM) 4.50 L Hgb (14.0 - 18.0 G/DL) 13.9 L Hct (42 - 52 %) 41.6 L MCV (80.0 - 94.0 FL) 92.4 MCH (27.0 - 31.0 PG) 30.9 MCHC (33.0 - 37.0 G/DL) 33.5 RDW (11.5 - 14.5 %) 12.3 Plt Count (130 - 400 /CUMM) 162 MPV (7.4 - 10.4 FL) 10.6 H Gran % (42.2 - 75.2 %) 44.8 Lymphocytes % (20.5 - 51.1 %) 44.7 Monocytes % (1.7 - 9.3 %) 6.0 Eosinophils % (0 - 5 %) 3.9 Basophils % (0.0 - 2.0 %) 0.6 Absolute Granulocytes (1.4 - 6.5 /CUMM) 1.7 Absolute Lymphocytes (1.2 - 3.4 /CUMM) 1.7 Absolute Monocytes (0.10 - 0.60 /CUMM) 0.2 Absolute Eosinophils (0.0 - 0.7 /CUMM) 0.1 Absolute Basophils (0.0 - 0.2 /CUMM) 0
--- NOTE | 2018-02-05 10:34 | PN- Att Addend ---
Attending Addendum Attending Brief Note Patient seen and examined. Plan of care discussed with the medical team and the patient. Available lab work and radiology test reports were reviewed. Patient is resting comfortably in bed. He denies any new complaints. No reports of recent nausea vomiting chest pain fever or chills. Exam: General: Patient awake alert oriented without any distress CVS: S1 plus S2 without any murmur or gallops Chest: Few scattered crepitation without any wheeze. There is no respiratory distress. Abdomen: Soft non-tender, bowel sound present, no guarding or rebound NUTRITION AIDE: Awake alert oriented without any focal neuro deficit and follows commands appropriately Extremities: No edema; no clubbing or cyanosis noted Assessment # Hyperosmolar hyperglycemic states in a type 2 diabetic male 2/2 noncompliance with medications # High AG metabolic acidosis, lactic acidosis # Pseudohyponatremia - resolved # Hyperkalemia - resolved # History of CAD s/p stents # ARTEM - resolved # Essential hypertension Plan * Please follow endocrinology recommendation; adjust the sliding scale with NovoLog and had nighttime coverage * DC IV fluids * Out of bed and ambulate with assist * Replace phosphorus by mouth * Dietitian consultation for diabetes and low albumin * DC iV Protonix Current Medications Sig/Travon Start time Last Medication Dose Route Stop Time Status Admin Albuterol Sulfate 3 ML Q4P PRN 02/04 1045 AC 02/04 INH 1035 Amlodipine Besylate 5 MG DAILY 02/04 0900 AC 02/05 PO 1012 Aspirin Buffered 81 MG DAILY 02/04 0900 AC 02/05 PO 1012 Atorvastatin Calcium 40 MG DAILY 02/04 0900 AC 02/05 PO 1012 Benzonatate 100 MG TID 02/04 0900 AC 02/05 PO 1012 Heparin Sodium 5,000 UNIT Q8 02/04 1400 AC 02/05 (Porcine) SC 0553 Insulin Aspart 0 Q4 02/04 1000 AC 02/05 SC 1018 Insulin Detemir 10 UNITS BID 02/04 0830 AC 02/05 SC 1018 Insulin Human Regular 100 UNIT Q24H 02/03 1915 DC 02/03 Sodium Chloride 100 ML IV 2112 Metoprolol Tartrate 25 MG BID 02/04 0011 AC 02/05 PO 1012 Nitroglycerin 0.5 GM Q6P PRN 02/04 0400 AC TOP Nystatin 5 ML BID 02/04 0900 AC 02/05 PO 1013 Pantoprazole Sodium 40 MG DAILY 02/04 0900 AC 02/05 IV 1012 Potassium Chloride 20 MEQ Q13H 02/04 1200 AC 02/05 Dextrose/Sodium 1,000 ML IV 0840 Chloride Potassium Chloride 20 MEQ ONCE ONE 02/04 0145 DC 02/04 Dextrose/Sodium 1,000 ML IV 02/04 1159 0145 Chloride Laboratory Tests 02/05/18 0625: Troponin I Pending 02/05/18 0625: Anion Gap 8, Estimated GFR > 60, Glucose 242 H, Calcium 9.0, Phosphorus 2.3 L, Magnesium 1.8, Total Bilirubin 0.7, AST 28, ALT 34, Albumin 3.0 L, CBC w Diff NO MAN DIFF REQ, RBC 4.50 L, MCV 92.4, MCH 30.9, MCHC 33.5, RDW 12.3, MPV 10.6 H, Gran % 44.8, Lymphocytes % 44.7, Monocytes % 6.0, Eosinophils % 3.9, Basophils % 0.6, Absolute Granulocytes 1.7, Absolute Lymphocytes 1.7, Absolute Monocytes 0.2, Absolute Eosinophils 0.1, Absolute Basophils 0 02/04/18 1430: APTT Cancelled 02/04/18 0500: APTT 104 *H 02/04/18 0430: Anion Gap 12, Estimated GFR > 60, Glucose 222 H, Calcium 9.5, Phosphorus 2.4 L , Magnesium 2.4 H, Total Bilirubin 0.7, AST 17, ALT 24, Troponin I 0.05, Albumin 3.5, TSH 1.920, Free T4 1.19, Cortisol AM Sample 20.0, CBC w Diff MAN DIFF ORDERED, RBC 4.69 L, MCV 92.9, MCH 30.8, MCHC 33.2, RDW 12.5, MPV 10.1, Gran % 49.6, Lymphocytes % 38.1, Monocytes % 8.4, Eosinophils % 3.2, Basophils % 0.7, Absolute Granulocytes 3.5, Segmented Neutrophils 47, Absolute Lymphocytes 2.7, Lymphocytes 44, Monocytes 8, Absolute Monocytes 0.6, Absolute Eosinophils 0.2, Basophils 1, Absolute Basophils 0, Platelet Estimate ADEQUATE, Normochromic RBCs VERIFIED, Ovalocytes FEW, ESR Westergren 25 H, Fld Total RBCs Counted 100 02/04/18 0300: Sodium Cancelled, Potassium Cancelled, Chloride Cancelled, Carbon Dioxide Cancelled, Anion Gap Cancelled, BUN Cancelled, Creatinine Cancelled, Glucose Cancelled, Calcium Cancelled, Phosphorus Cancelled, Magnesium Cancelled, Total Bilirubin Cancelled, AST Cancelled, ALT Cancelled, Albumin Cancelled, CBC w Diff Cancelled, WBC Cancelled, RBC Cancelled, Hgb Cancelled, Hct Cancelled, MCV Cancelled, MCH Cancelled, MCHC Cancelled, RDW Cancelled, Plt Count Cancelled, MPV Cancelled 02/04/18 0230: Lactic Acid 1.9 02/04/18 0230: Anion Gap 10, Estimated GFR > 60, Glucose 283 H, Calcium 9.3, Phosphorus 2.8, Magnesium 2.4 H, Total Bilirubin 0.7, AST 15 L, ALT 24, Albumin 3.4 L 02/04/18 0100: Troponin I Cancelled 02/04/18 0016: Lactic Acid 2.1 02/04/1815: Anion Gap 12, Estimated GFR > 60, Glucose 389 H, Calcium 9.3, Phosphorus 2.7, Magnesium 2.4 H, Total Bilirubin 0.5, AST 13 L, ALT 26, Troponin I 0.05, C- Reactive Prot, Quant 0.7, Albumin 3.3 L 02/03/182109: Lactic Acid 2.6 H 02/03/182109: Anion Gap 15, Estimated GFR 54 L, BUN/Creatinine Ratio 24.6, Glucose 617 *H, Troponin I 0.05 02/03/18 194: Urine Opiates Screen < 100, Methadone Screen < 40, Barbiturate Screen < 60, Ur Phencyclidine Scrn < 6.00, Amphetamines Screen < 100, U Benzodiazepines Scrn < 85, Urine Cocaine Screen < 50, Urine Cannabis Screen < 5.00, Urine Color YEL, Urine Clarity HAZY H, Urine pH 6.0, Ur Specific [place] 1.010, Urine Protein NEG, Urine Ketones 15 H, Urine Nitrite NEG, Urine Bilirubin NEG, Urine Urobilinogen 0.2, Ur Leukocyte Esterase NEG, Ur Microscopic SEDIMENT EXAMINED, Urine RBC FEW H, Urine Hemoglobin TRACE-INTACT H, Urine Glucose >=1000 H 02/03/18 1705: Hemoglobin A1c 15.5 H 02/03/18 1705: Anion Gap 20 H, Estimated GFR 46 L, BUN/Creatinine Ratio 22.7, Glucose 1197 *H , Serum Osmolality 349 H, Lactic Acid 3.2 H, Calcium 9.9, Total Bilirubin 0.8, AST 13 L, ALT 26, Alkaline Phosphatase 175 H, Troponin I 0.03, Total Protein 7.7, Albumin 4.5, Globulin 3.2, Albumin/Globulin Ratio 1.4, CBC w Diff NO MAN DIFF REQ, RBC 5.24, MCV 96.9 H, MCH 30.6, MCHC 31.6 L, RDW 13.1, MPV 10.9 H, Gran % 76.9 H, Lymphocytes % 16.5 L, Monocytes % 5.9, Eosinophils % 0.2, Basophils % 0.5, Absolute Granulocytes 4.4, Absolute Lymphocytes 0.9 L, Absolute Monocytes 0.3, Absolute Eosinophils 0, Absolute Basophils 0, Acetone Level POSITIVE AT 1:2 DIL 02/03/18 1653: Sodium Cancelled, Potassium Cancelled, Chloride Cancelled, Carbon Dioxide Cancelled, Anion Gap Cancelled, BUN Cancelled, Creatinine Cancelled, BUN/ Creatinine Ratio Cancelled, Glucose Cancelled, Calcium Cancelled, Total Bilirubin Cancelled, AST Cancelled, ALT Cancelled, Alkaline Phosphatase Cancelled, Total Protein Cancelled, Albumin Cancelled, Globulin Cancelled, Albumin/Globulin Ratio Cancelled 02/03/18 1650: Bicarbonate Actual 25, Mixed VBG pH 7.29 L, Mixed VBG pCO2 52 H, Mixed VBG O2 Saturation 42, Carboxyhemoglobin 0.8 L, O2 Concentration % R/A, Phlebotomy Draw Site VENOUS Microbiology 02/04 0430 UPPER RESP: Surveillance Culture - COMP METH RESIST STAPH AUREUS 02/04 158 LOWER RESP: Respiratory Culture - COLB 02/04 158 LOWER RESP: Gram Stain - COLB 02/03 2215 NASOPHARYN: Influenza Virus A & B Rapid Smear - COMP Vital Signs Date Time Temp Pulse Resp B/P B/P Pulse O2 O2 Flow FiO2 Mean Ox Delivery Rate 02/05 1012 74 144/90 02/05 0714 98.4 74 18 144/90 93 02/04 2241 98.9 80 24 158/90 97 02/04 2114 77 158/90 02/04 1807 98.2 83 20 150/80 95 02/04 1703 97.2 91 26 120/72 100 Room Air 02/04 1036 Room Air Room Air Intake & Output 02/05 1600 02/05 0800 02/05 0000 Intake Total 1000 450 Output Total Balance 1000 450 Intake, IV 800 200 Intake, Oral 200 250 Number 0 Bowel Movements Patient 130 lb Weight
--- NOTE | 2018-02-05 12:20 | PN- Cardiology ---
Subjective Subjective: * Intermittent and mild, nonexertional chest discomfort. No arrhytmias. Objective Vital Signs and I&Os Vital Signs Date Time Temp Pulse Resp B/P B/P Pulse O2 O2 Flow FiO2 Mean Ox Delivery Rate 02/05 1155 97 Room Air 02/05 1012 74 144/90 02/05 0714 98.4 74 18 144/90 93 02/04 2241 98.9 80 24 158/90 97 02/04 2114 77 158/90 02/04 1807 98.2 83 20 150/80 95 02/04 1703 97.2 91 26 120/72 100 Room Air Intake & Output 02/05 1600 02/05 0800 02/05 0000 02/04 1600 02/04 0800 02/04 0000 Intake Total 0532 430 0709 1716 2100 Output Total 450 300 400 Balance 8811 519 0878 1416 1700 Intake, IV 800 696 178 0686 2100 Intake, Oral 200 250 800 Number 0 Bowel Movements Output, Urine 450 300 400 Patient 130 lb 130 lb 132 lb 124 lb Weight Weight Bed scale Reported by Patient Measurement Method Physical Exam: General: WD/WN male in NAD; alert and oriented x 3 NEck: no JVD Heart: RRR Lungs: clear Ext: no edema Assessment/Plan Assessment/Plan * Patient has some atypical chest discomfort that is probably musculoskeletal and related to prior wretching. In consideration of his prior history we will risk stratify this patient with a treadmill nuclear stress test on Wednesday. Change to a NTG patch at 0.4mg/hr for 12 hours daily. Continue telemetry? Yes
[2018-02-05 15:00] VITALS: BP 120/60
[2018-02-05 22:54] VITALS: BP 118/62
[2018-02-06 06:24] VITALS: BP 120/80
[2018-02-06 08:48] VITALS: BP 130/70
--- NOTE | 2018-02-06 09:25 | PN- Diabetes ---
Assessment/Plan Diabetes Assessment: The patient feels much improved. He is eating well. He is alert and much brighter today. His blood sugars are coming down. His fingerstick blood sugar this morning is 210. He is on Levemir 10 units twice a day as well as sliding scale NovoLog. The patient complains of some swelling of his penis. Plan: Suggest continue the same insulin. The patient sugars are coming down and should improve gradually on this regimen. The patient needs a lot of diabetic education including dietary counseling and he needs to learn to check his own fingerstick blood sugar at home and also take insulin. Suggest urology consult. The patient may have a phimosis. Subjective Subjective: Feels okay Review of Systems Constitutional: Denies: chills, fever. Cardiovascular: Denies: chest pain. Respiratory: Denies: cough, short of breath. Gastrointestinal: Denies: nausea, vomiting. Skin: Reports: no symptoms. Objective Last 24 Hrs of Vital Signs/I&O Vital Signs Date Time Temp Pulse Resp B/P B/P Pulse O2 O2 Flow FiO2 Mean Ox Delivery Rate 02/06 0851 80 130/70 02/06 0851 80 130/70 02/06 0848 80 130/70 02/06 0800 Room Air 02/06 0624 98.6 74 19 120/80 94 Room Air 02/05 2254 97.9 70 18 118/62 98 Room Air 02/05 2103 96 Room Air Room Air 02/05 1500 98.1 68 18 120/60 97 Room Air 02/05 1155 97 Room Air 02/05 1012 74 144/90 Intake & Output 02/06 1600 02/06 0800 02/06 0000 Intake Total 300 80 Output Total Balance 300 80 Intake, Oral 300 80 Patient 135 lb Weight Weight Bed scale Measurement Method Vital Signs Date Time Temp Pulse Resp B/P B/P Pulse O2 O2 Flow FiO2 Mean Ox Delivery Rate 02/06 0851 80 130/70 02/06 0851 80 130/70 02/06 0848 80 130/70 02/06 0800 Room Air 02/06 0624 98.6 74 19 120/80 94 Room Air 02/05 2254 97.9 70 18 118/62 98 Room Air 02/05 2103 96 Room Air Room Air 02/05 1500 98.1 68 18 120/60 97 Room Air 02/05 1155 97 Room Air 02/05 1012 74 144/90 Intake & Output 02/06 1600 02/06 0800 02/06 0000 Intake Total 300 80 Output Total Balance 300 80 Intake, Oral 300 80 Patient 135 lb Weight Weight Bed scale Measurement Method Physical Exam General Appearance: alert, awake, comfortable Head: normal appearance Neck: normal inspection Cardiovascular: regular rate/rhythm Abdomen: normal bowel sounds Extremities: normal inspection
--- NOTE | 2018-02-06 09:38 | PN- Housestaff ---
Subjective Follow-up For: -Hyperosmolar hyperglycemic state -Elevated troponins Subjective: Patient seen and examined. He is seen sitting upright in bed resting comfortably watching television. He appears to be in no acute distress. He reports feeling well but does admit that he is having new issue. He reports that he noticed that his penis is swollen and he can no longer retract the foreskin this morning. He is still able to pass urine but it is somewhat uncomfortable. He reports that this is never happened before is concerned. He otherwise denies any fever, chills, headache, chest pain, short of breath, nausea, vomiting, or diarrhea. Review of Systems Constitutional: Reports: see HPI. Objective Last 24 Hrs of Vital Signs/I&O Vital Signs Date Time Temp Pulse Resp B/P B/P Pulse O2 O2 Flow FiO2 Mean Ox Delivery Rate 02/06 0851 80 130/70 02/06 0851 80 130/70 02/06 0848 80 130/70 02/06 0800 Room Air 02/06 0624 98.6 74 19 120/80 94 Room Air 02/05 2254 97.9 70 18 118/62 98 Room Air 02/05 2103 96 Room Air Room Air 02/05 1500 98.1 68 18 120/60 97 Room Air 02/05 1155 97 Room Air 02/05 1012 74 144/90 Intake & Output 02/06 1600 02/06 0800 02/06 0000 Intake Total 300 80 Output Total Balance 300 80 Intake, Oral 300 80 Patient 61.348 kg Weight Weight Bed scale Measurement Method Physical Exam General Appearance: Alert, Oriented X3, Cooperative, No Acute Distress Other Physical Findings: -General: Well-developed, well-nourished elderly -[place] man in no acute distress -HEENT: NCAT, PERRLA, EOMI, anicteric sclera, moist mucous membranes -Neck: Supple, no JVD, trachea midline, no accessory respiratory muscle use -Cardio: Normal S1/S2 without murmurs/gallops/rubs; regular rate and rhythm -Pulmonary: Clear to auscultation bilaterally -Abdomen: Soft, nontender, nondistended, bowel sounds intact -: Tense foreskin unable to be retracted without surrounding erythema or drainage but with mild swelling, normal-appearing scrotum, no inguinal lymphadenopathy -Neuro: Awake and alert, cranial nerves II through XII grossly intact -Extremity is: Normal pulses, no edema Current Medications: Current Medications Sig/Travon Start time Last Medication Dose Route Stop Time Status Admin Albuterol Sulfate 3 ML Q4P PRN 02/04 1045 AC 02/04 INH 1035 Amlodipine Besylate 5 MG DAILY 02/04 0900 AC 02/06 PO 0851 Aspirin Buffered 81 MG DAILY 02/04 0900 AC 02/06 PO 0851 Atorvastatin Calcium 40 MG DAILY 02/04 0900 AC 02/06 PO 0851 Benzonatate 100 MG TID 02/04 0900 AC 02/06 PO 0851 Heparin Sodium 5,000 UNIT Q8 02/04 1400 AC 02/06 (Porcine) SC 0604 Insulin Aspart 0 TIDAC/HS 02/05 1200 AC 02/06 SC 0851 Insulin Aspart 0 Q4 02/04 1000 DC 02/05 SC 1018 Insulin Detemir 10 UNITS BID 02/04 0830 AC 02/06 SC 0851 Metoprolol Tartrate 25 MG BID 02/04 0011 AC 02/06 PO 0851 Nitroglycerin 0.4 MG DAILY 02/06 0900 DC TOP Nitroglycerin 0.4 MG DAILY 02/06 0200 AC 02/06 TOP 0211 Nitroglycerin 0.5 GM Q6P PRN 02/04 0400 DC TOP Nystatin 5 ML BID 02/04 0900 AC 02/05 PO 2207 Pantoprazole Sodium 40 MG DAILY 02/04 0900 DC 02/05 IV 1012 Phosphate 250 MG PC AND AT BEDTIME 02/05 1300 AC 02/06 PO 0851 Potassium Chloride 20 MEQ Q13H 02/04 1200 DC 02/05 Dextrose/Sodium 1,000 ML IV 0840 Chloride Last 24 Hrs of Lab/Rajinder Results Last 24 Hrs of Labs/Mics: Laboratory Tests 02/06/18 0630: Anion Gap 6, Estimated GFR > 60, BUN/Creatinine Ratio 15.0 Assessment/Plan Assessment: 72-year-old man with multiple medical problems significant for diabetes mellitus and coronary artery disease that is post multiple cardiac stents admitted with marketed hyperglycemia and hyperosmolar hyperglycemic state. Patient's fingerstick range from 210-309 while on Levemir and NovoLog sliding scale insulin. He is tolerating his meals well. This morning he is complaining of "penis swelling". On exam he is unable to retract his foreskin and reports that he still able to pass urine but is somewhat uncomfortable. Urology consult was placed for evaluation of phimosis. He continues to deny any further chest pain. Patient should have a treadmill nuclear stress test on Wednesday. Problem list -Hyperosmolar hyperglycemic state, resolved -Penis swelling, probable phimosis -Anion gap metabolic acidosis, resolved -Pseudohyponatremia, resolved -Hyperkalemia, resolved -Acute kidney injury, resolved -Coronary artery disease status post multiple cardiac stents -Hypertension -Hyperlipidemia Plan -Continue telemetry floor admission -Telemetry monitoring -Accu-Cheks 3 times a day before meals/at bedtime -NovoLog sliding scale insulin -Levemir 10 units subcutaneous twice a day -Replete phosphorus by mouth -Continue meds: Amlodipine, aspirin, atorvastatin, metoprolol, nitroglycerin -Cardiology following for chest pain and EKG changes -Urology consult for phimosis -Endocrinology following for hyperglycemia -Pain control with acetaminophen -Diabetic diet -DVT prophylaxis with subcutaneous heparin -Full code Problem List: 1. Hyperosmolar non-ketotic state in patient with type 2 diabetes mellitus Pain Ratin Pain Location: None Pain Goal: Remain pain free Pain Plan: See assessment Tomorrow's Labs & Rationales: None
--- NOTE | 2018-02-06 09:39 | PN- Cardiology ---
Subjective Subjective: * No chest discomfort today and breathing is comfortable. He complains of discomfort with urination and an abnormal stream. * sinus rhythm Objective Vital Signs and I&Os Vital Signs Date Time Temp Pulse Resp B/P B/P Pulse O2 O2 Flow FiO2 Mean Ox Delivery Rate 02/06 0851 80 130/70 02/06 0851 80 130/70 02/06 0848 80 130/70 02/06 0800 Room Air 02/06 0624 98.6 74 19 120/80 94 Room Air 02/05 2254 97.9 70 18 118/62 98 Room Air 02/05 2103 96 Room Air Room Air 02/05 1500 98.1 68 18 120/60 97 Room Air 02/05 1155 97 Room Air 02/05 1012 74 144/90 Intake & Output 02/06 1600 02/06 0800 02/06 0000 02/05 1600 02/05 0800 02/05 0000 Intake Total 300 80 775 1000 450 Output Total Balance 300 80 775 1000 450 Intake, IV 225 800 200 Intake, Oral 300 80 550 200 250 Number 0 Bowel Movements Patient 135 lb 130 lb 130 lb Weight Weight Bed scale Measurement Method Physical Exam: General: WD/WN male in NAD; alert and oriented x 3 NEck: no JVD Heart: RRR Lungs: clear Ext: no edema Assessment/Plan Assessment/Plan * Patient had some atypical chest discomfort that was probably musculoskeletal and related to prior wretching. In consideration of his prior history we will risk stratify this patient with a treadmill nuclear stress test tomorrow. Continue his NTG patch at 0.4mg/hr for 12 hours daily. Continue telemetry? Yes
--- NOTE | 2018-02-06 11:56 | PN- Att Addend ---
Attending Addendum Attending Brief Note Patient seen and examined. Plan of care discussed with the medical team and the patient. Available lab work and radiology test reports were reviewed. Patient is resting comfortably in bed. He denies any new complaints. No reports of recent nausea vomiting chest pain fever or chills. Exam: General: Patient awake alert oriented without any distress CVS: S1 plus S2 without any murmur or gallops Chest: Few scattered crepitation without any wheeze. There is no respiratory distress. Abdomen: Soft non-tender, bowel sound present, no guarding or rebound RADIO DESPATCHER: Awake alert oriented without any focal neuro deficit and follows commands appropriately Extremities: No edema; no clubbing or cyanosis noted Genitalia: Patient has phimosis Assessment # Hyperosmolar hyperglycemic states in a type 2 diabetic male 2/2 noncompliance with medications, sugars are improving # High AG metabolic acidosis, lactic acidosis # Pseudohyponatremia - resolved # Hyperkalemia - resolved # History of CAD s/p stents # ARTEM - resolved # Essential hypertension # Phimosis # chest pain likely atypical Plan * Please follow endocrinology recommendation; adjust the sliding scale with NovoLog and had nighttime coverage * As per cardiology plan is for stress test tomorrow for chest pain * Obtain urology consultation for assessment of phimosis, patient may need circumcision * Out of bed and ambulate with assist * Recheck phosphorus level in a.m. * Dietitian consultation for diabetes and low albumin Current Medications Sig/Travon Start time Last Medication Dose Route Stop Time Status Admin Albuterol Sulfate 3 ML Q4P PRN 02/04 1045 AC 02/04 INH 1035 Amlodipine Besylate 5 MG DAILY 02/04 0900 AC 02/06 PO 0851 Aspirin Buffered 81 MG DAILY 02/04 0900 AC 02/06 PO 0851 Atorvastatin Calcium 40 MG DAILY 02/04 0900 AC 02/06 PO 0851 Benzonatate 100 MG TID 02/04 0900 AC 02/06 PO 0851 Heparin Sodium 5,000 UNIT Q8 02/04 1400 AC 02/06 (Porcine) SC 0604 Insulin Aspart 0 TIDAC/HS 02/05 1200 AC 02/06 SC 0851 Insulin Detemir 10 UNITS BID 02/04 0830 AC 02/06 SC 0851 Metoprolol Tartrate 25 MG BID 02/04 0011 AC 02/06 PO 0851 Nitroglycerin 0.4 MG DAILY 02/06 0900 DC TOP Nitroglycerin 0.4 MG DAILY 02/06 0200 AC 02/06 TOP 0211 Nitroglycerin 0.5 GM Q6P PRN 02/04 0400 DC TOP Nystatin 5 ML BID 02/04 0900 AC 02/06 PO 1014 Phosphate 250 MG PC AND AT BEDTIME 02/05 1300 AC 02/06 PO 0851 Vital Signs Date Time Temp Pulse Resp B/P B/P Pulse O2 O2 Flow FiO2 Mean Ox Delivery Rate 02/06 1020 94 Room Air 02/06 0851 80 130/70 02/06 0851 80 130/70 02/06 0848 80 130/70 02/06 0800 Room Air 02/06 0624 98.6 74 19 120/80 94 Room Air 02/05 2254 97.9 70 18 118/62 98 Room Air 02/05 2103 96 Room Air Room Air 02/05 1500 98.1 68 18 120/60 97 Room Air 02/05 1155 97 Room Air Intake & Output 02/06 1600 02/06 0800 02/06 0000 Intake Total 300 80 Output Total Balance 300 80 Intake, Oral 300 80 Patient 135 lb Weight Weight Bed scale Measurement Method
[2018-02-06 14:02] VITALS: BP 106/60
[2018-02-06 22:37] VITALS: BP 110/68
[2018-02-07 07:10] VITALS: BP 128/70
--- NOTE | 2018-02-07 07:39 | PN- Housestaff ---
Subjective Follow-up For: Hyperosmolar hyperglycemic state (resolved) Chest pain Epigastic pain Tele-Events Since Last Visit: Sinus rhythm with heart rate [id number] Subjective: Patient remained afebrileand examined this morning. Patient reported having chest pain this morning and told and EKGs were ordered we will follow that. Patient denied any palpitation, shortness of breath, nausea, vomiting, abdominal pain dysuria. He reported having chest pain and it's going, 7/10. Also reported epigastric pain. Patient is nothing by mouth and going for stress test today. He is on room air maintaining saturation 97%. Review of Systems Constitutional: Denies: chills, fever. EENTM: Reports: no symptoms. Cardiovascular: Reports: chest pain. Denies: orthopena, palpitations. Respiratory: Denies: cough, short of breath, sputum production. Gastrointestinal: Denies: abdominal pain, constipation, diarrhea, nausea. Genitourinary: Reports: no symptoms. Musculoskeletal: Reports: no symptoms. Neurological/Psychological: Reports: no symptoms. Objective Last 24 Hrs of Vital Signs/I&O Vital Signs Date Time Temp Pulse Resp B/P B/P Pulse O2 O2 Flow FiO2 Mean Ox Delivery Rate 02/07 0710 98.0 65 20 128/70 97 02/06 2237 98.0 76 20 110/68 94 Room Air 02/06 2155 80 110/68 02/06 2019 95 Room Air Room Air 02/06 1402 98.1 78 20 106/60 94 Room Air 02/06 1020 94 Room Air 02/06 0851 80 130/70 02/06 0851 80 130/70 02/06 0848 80 130/70 Intake & Output 02/07 1600 02/07 0800 02/07 0000 Intake Total 300 540 Output Total Balance 300 540 Intake, Oral 300 540 Patient 138 lb Weight Weight Bed scale Measurement Method Physical Exam General Appearance: Alert, Oriented X3, Cooperative Skin Temp/Moisture Exam: Warm/Dry Sepsis Skin Exam (color): Normal for Ethnicity HEENT: Atraumatic, PERRLA, EOMI Neck: Supple Cardiovascular: Normal S1, Normal S2 Lungs: Clear to Auscultation Abdomen: Soft, No Tenderness Neurological: Normal Speech, Strength at 5/5 X4 Ext, Normal Tone Extremities: No Edema Assessment/Plan Assessment: 72 year old gentleman w/ a PMHx of type 2 diabetes, former smoker, CAD s/p PCI x2 (unclear about the dates, and type of stent ), was brought to the hospital with a chief concern of elevated blood glucose by a PCP. Initially patient was admitted to ICU to treat for hyperosmolar hyperglycemic state with IV insulin drip. After stabilization patient was downgraded to telemetry floor. We're following the patient on telemetry for the following reason.: Hyperosmolar hyperglycemic state.(resolved) -Continue insulin NovoLog according to sliding scale. -Continue Levemir 10 units subcutaneous twice a day -Follow endocrinology recommendations Chest pain: -Patient is nothing by mouth -Going for cardiac stress test today. -Continue nitroglycerin paste Epigastric pain; -probably due to gastritis. -We will check amylase and lipase to rule out pancreatitis. -GI cocktail and omeprazole. Phimosis: -We will follow urology recommendations if any -Patient can follow urology as outpatient if not having urine retension or pain. History of CAD status post stent placement: -Continue aspirin, metoprolol and amlodipine. History of hyperlipidemia: -Continue atorvastatin. DVT prophylaxis: Mechanical and subcutaneous heparin CODE STATUS: Full code Problem List: 1. Hyperosmolar non-ketotic state in patient with type 2 diabetes mellitus 2. Chest pain Pain Ratin Pain Location: chest Pain Goal: Remain pain free Pain Plan: pain pathway Tomorrow's Labs & Rationales: cbc/bep
--- NOTE | 2018-02-07 07:43 | PN- Diabetes ---
Assessment/Plan Diabetes Assessment: The patient feels well this morning. He is n.p.o. for a stress test. He states he has some pain in his chest and upper back which comes and goes. His blood sugar this morning is 112. Plan: Suggest begin D5 half-normal saline at 75 cc an hour while n.p.o. so that the patient does not develop low blood sugar. When he is eating again resume his usual insulin. Subjective Review of Systems Constitutional: Denies: chills, fever. Cardiovascular: Denies: chest pain. Respiratory: Denies: cough, short of breath. Gastrointestinal: Denies: abdominal pain, nausea, vomiting. Skin: Reports: no symptoms. Objective Last 24 Hrs of Vital Signs/I&O Vital Signs Date Time Temp Pulse Resp B/P B/P Pulse O2 O2 Flow FiO2 Mean Ox Delivery Rate 02/07 0710 98.0 65 20 128/70 97 02/06 2237 98.0 76 20 110/68 94 Room Air 02/065 80 110/68 02/06 2019 95 Room Air Room Air 02/06 1402 98.1 78 20 106/60 94 Room Air 02/06 1020 94 Room Air 02/06 0851 80 130/70 02/06 0851 80 130/70 02/06 0848 80 130/70 02/06 0800 Room Air Intake & Output 02/07 0800 02/07 0000 02/06 1600 Intake Total 667 465 2265 Output Total Balance 646 682 9327 Intake, Oral 298 913 4668 Patient 138 lb Weight Weight Bed scale Measurement Method Vital Signs Date Time Temp Pulse Resp B/P B/P Pulse O2 O2 Flow FiO2 Mean Ox Delivery Rate 02/07 0710 98.0 65 20 128/70 97 02/067 98.0 76 20 110/68 94 Room Air 02/06 2155 80 110/68 02/06 2019 95 Room Air Room Air 02/06 1402 98.1 78 20 106/60 94 Room Air 02/06 1020 94 Room Air 02/06 0851 80 130/70 02/06 0851 80 130/70 02/06 0848 80 130/70 02/06 0800 Room Air Intake & Output 02/07 0800 02/07 0000 02/06 1600 Intake Total 905 977 5400 Output Total Balance 716 047 1308 Intake, Oral 805 987 6250 Patient 138 lb Weight Weight Bed scale Measurement Method Physical Exam General Appearance: alert, awake, comfortable Head: normal appearance Neck: normal inspection Respiratory: normal breath sounds Cardiovascular: regular rate/rhythm Abdomen: normal bowel sounds Extremities: normal inspection Current Medications: Current Medications Sig/Travon Start time Last Medication Dose Route Stop Time Status Admin Albuterol Sulfate 3 ML Q4P PRN 02/04 1045 AC 02/04 INH 1035 Amlodipine Besylate 5 MG DAILY 02/04 0900 AC 02/06 PO 0851 Aspirin Buffered 81 MG DAILY 02/04 0900 AC 02/06 PO 0851 Atorvastatin Calcium 40 MG DAILY 02/04 0900 AC 02/06 PO 0851 Benzonatate 100 MG TID 02/04 0900 AC 02/06 PO 2155 Dextrose/Sodium 1,000 ML Q13H 02/07 0745 AC Chloride IV 02/07 2044 Heparin Sodium 5,000 UNIT Q8 02/04 1400 AC 02/07 (Porcine) SC 0543 Insulin Aspart 0 TIDAC/HS 02/05 1200 AC 02/06 SC 2155 Insulin Detemir 10 UNITS BID 02/04 0830 AC 02/06 SC 2156 Metoprolol Tartrate 25 MG BID 02/04 0011 AC 02/06 PO 2155 Nitroglycerin 0.4 MG DAILY 02/06 0200 AC 02/06 TOP 0211 Nystatin 5 ML BID 02/04 0900 AC 02/06 PO 2155 Phosphate 250 MG PC AND AT BEDTIME 02/05 1300 AC 02/06 PO 2155
--- NOTE | 2018-02-07 10:44 | PN- Att Addend ---
Attending Addendum Attending Brief Note Patient seen and examined. Plan of care discussed with the medical team and the patient. Available lab work and radiology test reports were reviewed. Patient is resting comfortably in bed. He denies any new complaints. Complains of for mild epigastric discomfort this morning. His troponin was rechecked early this morning and was negative. No reports of recent nausea vomiting chest pain fever or chills. Exam: General: Patient awake alert oriented without any distress CVS: S1 plus S2 without any murmur or gallops Chest: Few scattered crepitation without any wheeze. There is no respiratory distress. Abdomen: Soft non-tender, bowel sound present, no guarding or rebound OPHTHALMIC DISPENSER: Awake alert oriented without any focal neuro deficit and follows commands appropriately Extremities: No edema; no clubbing or cyanosis noted Genitalia: Patient has phimosis Assessment # Hyperosmolar hyperglycemic states in a type 2 diabetic male 2/2 noncompliance with medications, sugars are improving # High AG metabolic acidosis, lactic acidosis # Pseudohyponatremia - resolved # Hyperkalemia - resolved # History of CAD s/p stents # ARTEM - resolved # Essential hypertension # Phimosis # chest pain likely atypical Plan * Proceed with stress test * Agree with starting IV fluids while patient nothing by mouth * Obtain urology consultation for assessment of phimosis, patient may need circumcision * Out of bed and ambulate with assist * Dietitian consultation for diabetes and low albumin * Prepare for discharge tomorrow * Add oral PPI Prilosec 20 mg daily; also try a GI cocktail today Current Medications Sig/Travon Start time Last Medication Dose Route Stop Time Status Admin Albuterol Sulfate 3 ML Q4P PRN 02/04 1045 AC 02/04 INH 1035 Amlodipine Besylate 5 MG DAILY 02/04 0900 AC 02/07 PO 0953 Aspirin Buffered 81 MG DAILY 02/04 0900 AC 02/07 PO 0937 Atorvastatin Calcium 40 MG DAILY 02/04 0900 AC 02/07 PO 0937 Benzonatate 100 MG TID 02/04 0900 AC 02/07 PO 0937 Dextrose/Sodium 1,000 ML Q13H 02/07 0745 AC 02/07 Chloride IV 02/07 2044 0937 Heparin Sodium 5,000 UNIT Q8 02/04 1400 AC 02/07 (Porcine) SC 0543 Insulin Aspart 0 TIDAC/HS 02/05 1200 AC 02/06 SC 2155 Insulin Detemir 5 UNITS ONCE ONE 02/07 0945 DC 02/07 CT 02/07 0946 0954 Insulin Detemir 10 UNITS BID 02/04 0830 02/06 CT 215 Metoprolol Tartrate 25 MG BID 02/04 0011 AC 02/07 PO 0944 Nitroglycerin 0.4 MG DAILY 02/06 0200 02/06 TOP 0211 Nystatin 5 ML BID 02/04 0900 02/07 PO 0937 Omeprazole 40 MG DAILY 02/07 0946 PO Phosphate 250 MG PC AND AT BEDTIME 02/05 1300 02/06 PO 2155 Laboratory Tests 02/07/18 0629: Troponin I Cancelled 02/07/18 0616: Phosphorus 3.9, Troponin I < 0.01, Amylase 122 H, Lipase 311 H 02/06/18 0630: Anion Gap 6, Estimated GFR > 60, BUN/Creatinine Ratio 15.0 02/05/18 0625: Troponin I 0.02 02/05/18 0625: Anion Gap 8, Estimated GFR > 60, Glucose 242 H, Calcium 9.0, Phosphorus 2.3 L, Magnesium 1.8, Total Bilirubin 0.7, AST 28, ALT 34, Albumin 3.0 L, CBC w Diff NO MAN DIFF REQ, RBC 4.50 L, MCV 92.4, MCH 30.9, MCHC 33.5, RDW 12.3, MPV 10.6 H, Gran % 44.8, Lymphocytes % 44.7, Monocytes % 6.0, Eosinophils % 3.9, Basophils % 0.6, Absolute Granulocytes 1.7, Absolute Lymphocytes 1.7, Absolute Monocytes 0.2, Absolute Eosinophils 0.1, Absolute Basophils 0 02/04/18 1430: APTT Cancelled Vital Signs Date Time Temp Pulse Resp B/P B/P Pulse O2 O2 Flow FiO2 Mean Ox Delivery Rate 02/07 0953 67 118/78 02/07 0710 98.0 65 20 128/70 97 02/067 98.0 76 20 110/68 94 Room Air 02/06 2155 80 110/68 02/06 2019 95 Room Air Room Air 02/06 1402 98.1 78 20 106/60 94 Room Air Intake & Output 02/07 1600 02/07 0800 02/07 0000 Intake Total 300 540 Output Total Balance 300 540 Intake, Oral 300 540 Patient 138 lb Weight Weight Bed scale Measurement Method
[2018-02-07 14:18] VITALS: BP 110/58
[2018-02-07] MEDS ORDERED: OMEPRAZOLE20 M2 PO (14:55)
--- NOTE | 2018-02-07 17:33 | NUCLEAR MEDICINE REPORT ---
EXERCISE STRESS AND RESTING SPECT MYOCARDIAL PERFUSION IMAGING STUDY WITH GATED SPECT IMAGES: CLINICAL INDICATION: CAD, status post multiple cardiac stents, diabetes. PROCEDURE: Regional myocardial perfusion was assessed using a 1 day protocol. Stress images were obtained on 02/07/2018 following the intravenous administration of 20.3 mCi Tc 99m Myoview. Stress was performed using the standard Brian protocol, with the patient reaching a peak heart rate of 92% maximal predicted heart rate. Rest images were obtained 02/07/2018 following the intravenous administration of 32.5 mCi Technetium 99m Myoview. Single photon emission tomographic (SPECT) images were obtained. SPECT images were acquired in a 64 x 64 matrix of 64 projections over 180 degrees. These were reconstructed into standard short axis, horizontal and vertical long axis cardiac projections. FINDINGS: The post stress images demonstrate the left ventricular chamber to be normal in size. There is homogeneous distribution of activity in the left ventricular myocardium with no regions of abnormally decreased activity noted. The resting images also demonstrate homogeneous distribution of activity in the left ventricular myocardium, and are not significantly changed from the post stress images. The stress images were obtained using a gated SPECT technique, which permits visualization of wall motion and calculation of the left ventricular ejection fraction. No left ventricular wall motion abnormalities are noted on the stress study. The calculated left ventricular ejection fraction is 53% on the stress study. No previous study is available for comparison. IMPRESSION: Normal exercise stress and resting myocardial perfusion study with normal left ventricular wall motion and ejection fraction.
[2018-02-07 22:31] VITALS: BP 126/74
[2018-02-08 06:54] VITALS: BP 130/70
[2018-02-08 07:58] VITALS: BP 136/64
--- NOTE | 2018-02-08 07:58 | PN- Diabetes ---
Assessment/Plan Diabetes Assessment: The patient feels improved. He had a stress test yesterday. He missed his morning Levemir dose because of the stress test. His sugars became high late in the day. This morning his fingerstick blood sugars 237. Apparently the stress test was okay. Plan: Suggest resume the patient's usual insulin. In addition we can begin pioglitazone 30 mg daily. The patient needs to be taught to take insulin using an insulin pen and also to measure his own sugar at home. I would discontinue the patient's Neutra-Phos. Subjective Subjective: Feels okay Review of Systems Constitutional: Denies: chills, fever. Cardiovascular: Denies: chest pain. Respiratory: Denies: short of breath. Gastrointestinal: Denies: abdominal pain, nausea. Skin: Reports: no symptoms. Objective Last 24 Hrs of Vital Signs/I&O Vital Signs Date Time Temp Pulse Resp B/P B/P Pulse O2 O2 Flow FiO2 Mean Ox Delivery Rate 02/08 0654 98.4 88 20 130/70 96 Room Air 02/08 0000 99.4 02/079 100.7 02/071 100.7 83 19 126/74 93 Room Air 02/07 2135 74 140/70 02/07 1923 96 Room Air Room Air 02/07 1418 98.4 79 18 110/58 95 Room Air 02/07 0953 67 118/78 Intake & Output 02/08 0800 02/08 0000 02/07 1600 Intake Total 240 300 610 Output Total Balance 240 300 610 Intake, IV 150 Intake, Oral 240 300 460 Patient 140 lb Weight Current Medications Sig/Travon Start time Last Medication Dose Route Stop Time Status Admin Acetaminophen 500 MG ONCE ONE 02/07 2300 DC 02/07 PO 02/07 2301 2259 Albuterol Sulfate 3 ML Q4P PRN 02/04 1045 AC 02/07 INH 1924 Amlodipine Besylate 5 MG DAILY 02/04 900 AC 02/07 PO 0953 Aspirin Buffered 81 MG DAILY 02/04 900 AC 02/07 PO 0937 Atorvastatin Calcium 40 MG DAILY 02/04 900 AC 02/07 PO 0937 Benzonatate 100 MG TID 02/04 09 AC 02/07 PO 2132 Dextrose/Sodium 1,000 ML Q13H 02/07 0745 DC 02/07 Chloride IV 04/23 2044 0937 Heparin Sodium 5,000 UNIT Q8 02/04 1400 AC 02/08 (Porcine) SC 0550 Insulin Aspart 0 TIDAC/HS 02/05 1200 AC 02/07 SC 2131 Insulin Detemir 5 UNITS ONCE ONE 02/07 0945 DC 02/07 SC 02/07 0946 0954 Insulin Detemir 10 UNITS BID 02/04 0830 AC 02/07 SC 2131 Metoprolol Tartrate 25 MG BID 02/04 0011 AC 02/07 PO 2135 Nitroglycerin 0.4 MG DAILY 02/06 0200 AC 02/06 TOP 0211 Nystatin 5 ML BID 02/04 0900 AC 02/07 PO 2132 Omeprazole 40 MG DAILY AC 02/07 0946 AC 02/08 PO 0549 Phosphate 250 MG PC AND AT BEDTIME 02/05 1300 AC 02/07 PO 2132 Vital Signs Date Time Temp Pulse Resp B/P B/P Pulse O2 O2 Flow FiO2 Mean Ox Delivery Rate 02/08 0654 98.4 88 20 130/70 96 Room Air 02/08 0000 99.4 02/07 2259 100.7 02/07 2231 100.7 83 19 126/74 93 Room Air 02/075 74 140/70 02/07 1923 96 Room Air Room Air 02/07 1418 98.4 79 18 110/58 95 Room Air 02/07 0953 67 118/78 Intake & Output 02/08 0800 02/08 0000 02/07 1600 Intake Total 240 300 610 Output Total Balance 240 300 610 Intake, IV 150 Intake, Oral 240 300 460 Patient 140 lb Weight Physical Exam General Appearance: alert, awake, comfortable Neck: normal inspection Respiratory: normal breath sounds Cardiovascular: regular rate/rhythm Abdomen: normal bowel sounds Current Medications: Current Medications Sig/Travon Start time Last Medication Dose Route Stop Time Status Admin Acetaminophen 500 MG ONCE ONE 02/07 2300 DC 02/07 PO 02/07 230 2259 Albuterol Sulfate 3 ML Q4P PRN 02/04 1045 AC 02/07 INH 1924 Amlodipine Besylate 5 MG DAILY 02/04 09 AC 02/07 PO 0953 Aspirin Buffered 81 MG DAILY 02/04 0900 AC 02/07 PO 0937 Atorvastatin Calcium 40 MG DAILY 02/04 0900 AC 02/07 PO 0937 Benzonatate 100 MG TID 02/04 0900 AC 02/07 PO 2132 Dextrose/Sodium 1,000 ML Q13H 02/07 0745 DC 02/07 Chloride IV 02/07 2044 0937 Heparin Sodium 5,000 UNIT Q8 02/04 1400 AC 02/08 (Porcine) SC 0550 Insulin Aspart 0 TIDAC/HS 02/05 1200 AC 02/07 SC 2131 Insulin Detemir 5 UNITS ONCE ONE 02/07 0945 DC 02/07 SC 02/07 0946 0954 Insulin Detemir 10 UNITS BID 02/04 0830 AC 02/07 SC 2131 Metoprolol Tartrate 25 MG BID 02/04 0011 AC 02/07 PO 2135 Nitroglycerin 0.4 MG DAILY 02/06 0200 AC 02/06 TOP 0211 Nystatin 5 ML BID 02/04 0900 AC 02/07 PO 2132 Omeprazole 40 MG DAILY AC 02/07 0946 AC 02/08 PO 0549 Phosphate 250 MG PC AND AT BEDTIME 02/05 1300 AC 02/07 PO 2132 Vital Signs Date Time Temp Pulse Resp B/P B/P Pulse O2 O2 Flow FiO2 Mean Ox Delivery Rate 02/08 0654 98.4 88 20 130/70 96 Room Air 02/08 0000 99.4 02/07 2259 100.7 02/07 2231 100.7 83 19 126/74 93 Room Air 02/07 2135 74 140/70 02/07 1923 96 Room Air Room Air 02/07 1418 98.4 79 18 110/58 95 Room Air 02/07 0953 67 118/78 Intake & Output 02/08 0800 02/08 0000 02/07 1600 Intake Total 240 300 610 Output Total Balance 240 300 610 Intake, IV 150 Intake, Oral 240 300 460 Patient 140 lb Weight
--- NOTE | 2018-02-08 09:20 | PN- Housestaff ---
Subjective Follow-up For: [facility] Tele-Events Since Last Visit: sinus rhythm HR 60-80s Subjective: no complaints today awaiting insulin and glucometer teaching Review of Systems Constitutional: Reports: see HPI. Objective Last 24 Hrs of Vital Signs/I&O Vital Signs Date Time Temp Pulse Resp B/P B/P Pulse O2 O2 Flow FiO2 Mean Ox Delivery Rate 02/08 1039 96 Room Air Room Air 02/08 0800 Room Air 02/08 0759 80 136/64 02/08 0759 80 136/64 02/08 0758 80 136/64 02/08 0654 98.4 88 20 130/70 96 Room Air 02/08 0000 99.4 02/07 2259 100.7 02/07 2231 100.7 83 19 126/74 93 Room Air 02/07 2135 74 140/70 02/07 1923 96 Room Air Room Air 02/07 1418 98.4 79 18 110/58 95 Room Air Intake & Output 02/08 1600 02/08 0800 02/08 0000 Intake Total 240 300 Output Total Balance 240 300 Intake, Oral 240 300 Patient 63.503 kg Weight Physical Exam General Appearance: Alert, Oriented X3, Cooperative, No Acute Distress Cardiovascular: Regular Rate, Normal S1, Normal S2, No Murmurs Lungs: Clear to Auscultation, Normal Air Movement Abdomen: Normal Bowel Sounds, Soft, No Tenderness, No Masses Extremities: No Clubbing, No Cyanosis, No Edema, Normal Pulses Current Medications: Current Medications Sig/Travon Start time Last Medication Dose Route Stop Time Status Admin Acetaminophen 500 MG ONCE ONE 02/07 2300 DC 02/07 PO 02/07 2301 2259 Albuterol Sulfate 3 ML Q4P PRN 02/04 1045 AC 02/07 INH 1924 Amlodipine Besylate 5 MG DAILY 02/04 09 AC 02/08 PO 0759 Aspirin Buffered 81 MG DAILY 02/04 09 AC 02/08 PO 0759 Atorvastatin Calcium 40 MG DAILY 02/04 09 AC 02/08 PO 0759 Benzonatate 100 MG TID 02/04 09 AC 02/08 PO 0800 Dextrose/Sodium 1,000 ML Q13H 02/07 0745 DC 02/07 Chloride IV 02/07 2044 0937 Heparin Sodium 5,000 UNIT Q8 02/04 1400 AC 02/08 (Porcine) SC 0550 Insulin Aspart 0 TIDAC/HS 02/05 1200 AC 02/08 SC 0759 Insulin Detemir 10 UNITS BID 02/04 0830 AC 02/08 SC 0758 Metoprolol Tartrate 25 MG BID 02/04 0011 AC 02/08 PO 0759 Nitroglycerin 0.4 MG DAILY 02/06 0200 AC 02/08 TOP 0759 Nystatin 5 ML BID 02/04 0900 DC 02/08 PO 0759 Omeprazole 40 MG DAILY AC 02/07 0946 AC 02/08 PO 0549 Phosphate 250 MG PC AND AT BEDTIME 02/05 1300 DC 02/08 PO 0759 Pioglitazone HCl 30 MG DAILY 02/08 1238 UNVr PO Last 24 Hrs of Lab/Rajinder Results Last 24 Hrs of Labs/Mics: Laboratory Tests 02/08/18 1150: Urine Color Pending, Urine Clarity Pending, Urine pH Pending, Ur Specific [place] Pending, Urine Protein Pending, Urine Ketones Pending, Urine Nitrite Pending, Urine Bilirubin Pending, Urine Urobilinogen Pending, Ur Leukocyte Esterase Pending, Ur Microscopic SEDIMENT EXAMINED, Urine RBC Pending, Urine Hemoglobin Pending, Urine Glucose Pending 02/08/18 1005: Anion Gap 9, Estimated GFR > 60, BUN/Creatinine Ratio 13.3, CBC w Diff NO MAN DIFF REQ, RBC 4.29 L, MCV 93.6, MCH 31.2 H, MCHC 33.3, RDW 12.6, MPV 10.4, Gran % 60.0, Lymphocytes % 26.5, Monocytes % 11.9 H, Eosinophils % 0.9, Basophils % 0.7, Absolute Granulocytes 1.5, Absolute Lymphocytes 0.7 L, Absolute Monocytes 0.3, Absolute Eosinophils 0, Absolute Basophils 0 Microbiology 02/07 2335 BLOOD: Blood Culture - RES 02/07 2330 BLOOD: Blood Culture - RES Assessment/Plan Assessment: 72 year old gentleman w/ a PMHx of type 2 diabetes, former smoker, CAD s/p PCI x2 was sent to the hospital for hyperglycemia by a PCP and admitted to ICU for HHS treated with an IV insulin drip now stabilized on levemir and novolog Hyperosmolar hyperglycemic state: Was ketone positive, VBG pH 7.29 on arrival Treated with IV insulin drip with resolution of anion gap acidosis Continue insulin NovoLog according to sliding scale. Continue Levemir 10 units subcutaneous twice a day Follow endocrinology recommendations Phimosis: Urology recommendations pending CAD s/p PCI with stents Continue aspirin, statin, metoprolol transdermal nitro, and amlodipine Negative stress test History of hyperlipidemia: Continue atorvastatin Diabetic diet DVT ppx-ALPs and subcutaneous heparin 5000 units subcutaneous q8h Full code Problem List: 1. Hyperosmolar non-ketotic state in patient with type 2 diabetes mellitus Pain Ratin Pain Location: n/a Pain Goal: Pain 4 or less Pain Plan: prn Tomorrow's Labs & Rationales: none
[2018-02-08 11:06] LABS: ABSOLUTE BASOPHIL COUNT 0 /CUMM (0.0-0.2); ABSOLUTE EOSINOPHIL COUNT 0 /CUMM (0.0-0.7); ABSOLUTE GRANULOCYTE CT 1.5 /CUMM (1.4-6.5); ABSOLUTE LYMPH COUNT 0.7 /CUMM (1.2-3.4); ABSOLUTE MONOCYTE COUNT 0.3 /CUMM (0.10-0.60); BASOPHIL % 0.7 % (0.0-2.0); EOSINOPHIL % 0.9 % (0-5); HEMATOCRIT 40.1 % (42-52); MEAN CORPUSCULAR HGB 31.2 PG (27.0-31.0); MEAN CORPUSCULAR HGB CONC 33.3 G/DL (33.0-37.0); MEAN CORPUSCULAR VOLUME 93.6 FL (80.0-94.0); MEAN PLATELET VOLUME 10.4 FL (7.4-10.4); PLATELET COUNT 163 /CUMM (130-400); RBC DISTRIBUTION WIDTH 12.6 % (11.5-14.5); RED BLOOD CELL CT 4.29 /CUMM (4.70-6.10); WHITE BLOOD CELL COUNT 2.5 /CUMM (4.8-10.8)
[2018-02-08] MEDS ORDERED: LEVEMIR FL100 UNIT/1 SC (11:31)
[2018-02-08] MEDS ORDERED: NOVOLOG FL100 UNIT/1 SC (11:36)
--- NOTE | 2018-02-08 11:51 | PN- Att Addend ---
Attending Addendum Attending Brief Note Patient seen and examined. Plan of care discussed with the medical team and the patient. Available lab work and radiology test reports were reviewed. Patient is resting comfortably in bed. He denies any new complaints. Patient was noted to have a temperature 100.7 last night. Patient denies any new symptoms such as sore throat coughing chest pain nausea vomiting or diarrhea. Patient underwent stress test yesterday. Exam: General: Patient awake alert oriented without any distress CVS: S1 plus S2 without any murmur or gallops Chest: Few scattered crepitation without any wheeze. There is no respiratory distress. 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 Plan * Unfortunately patient the currently not comfortable with giving insulin or checking Accu-Chek at home. We will need to involve his family. At this point given that he is not educated about giving insulin or checking his blood sugars at home, it is not safe to discharge him home. * Please strain patient and check Accu-Chek and giving insulin and also train his next of kin * Obtain urology consultation for assessment of phimosis, patient may need circumcision * Out of bed and ambulate with assist * Prepare for discharge tomorrow * Continue l PPI Prilosec 20 mg daily; also try a GI cocktail or Tums when necessary * Check CBC and chemistry labs today to workup his fever. Obtain a chest x-ray and UA as well. Current Medications Sig/Travon Start time Last Medication Dose Route Stop Time Status Admin Acetaminophen 500 MG ONCE ONE 02/07 2300 DC 02/07 PO 02/07 2301 2259 Albuterol Sulfate 3 ML Q4P PRN 02/04 1045 AC 02/07 INH 1924 Amlodipine Besylate 5 MG DAILY 02/04 09 AC 02/08 PO 0759 Aspirin Buffered 81 MG DAILY 02/04 0900 AC 02/08 PO 0759 Atorvastatin Calcium 40 MG DAILY 02/04 0900 AC 02/08 PO 0759 Benzonatate 100 MG TID 02/04 0900 AC 02/08 PO 0800 Dextrose/Sodium 1,000 ML Q13H 02/07 0745 DC 02/07 Chloride IV 02/08 2044 0937 Heparin Sodium 5,000 UNIT Q8 02/04 1400 AC 02/08 (Porcine) SC 0550 Insulin Aspart 0 TIDAC/HS 02/05 1200 AC 02/08 SC 0759 Insulin Detemir 10 UNITS BID 02/04 0830 AC 02/08 SC 0758 Metoprolol Tartrate 25 MG BID 02/04 0011 AC 02/08 PO 0759 Nitroglycerin 0.4 MG DAILY 02/06 0200 AC 02/08 TOP 0759 Nystatin 5 ML BID 02/04 0900 DC 02/08 PO 0759 Omeprazole 40 MG DAILY AC 02/07 0946 AC 02/08 PO 0549 Phosphate 250 MG PC AND AT BEDTIME 02/05 1300 AC 02/08 PO 0759 Laboratory Tests 02/08/18 1005: Sodium Pending, Potassium Pending, Chloride Pending, Carbon Dioxide Pending, Anion Gap Pending, BUN Pending, Creatinine Pending, BUN/Creatinine Ratio Pending , CBC w Diff Pending, WBC Pending, RBC Pending, Hgb Pending, Hct Pending, MCV Pending, MCH Pending, MCHC Pending, RDW Pending, Plt Count Pending, MPV Pending 02/07/18 0629: Troponin I Cancelled 02/07/18 0616: Phosphorus 3.9, Troponin I < 0.01, Amylase 122 H, Lipase 311 H 02/06/18 0630: Anion Gap 6, Estimated GFR > 60, BUN/Creatinine Ratio 15.0 Microbiology 02/075 BLOOD: Blood Culture - RECD 02/07 2330 BLOOD: Blood Culture - RECD Vital Signs Date Time Temp Pulse Resp B/P B/P Pulse O2 O2 Flow FiO2 Mean Ox Delivery Rate 02/08 1039 96 Room Air Room Air 02/08 0800 Room Air 02/08 0759 80 136/64 02/08 0759 80 136/64 02/08 0758 80 136/64 02/08 0654 98.4 88 20 130/70 96 Room Air 02/08 0000 99.4 02/07 2259 100.7 02/07 2231 100.7 83 19 126/74 93 Room Air 02/07 2135 74 140/70 02/07 1923 96 Room Air Room Air 02/07 1418 98.4 79 18 110/58 95 Room Air Intake & Output 02/08 1600 02/08 0800 02/08 0000 Intake Total 240 300 Output Total Balance 240 300 Intake, Oral 240 300 Patient 140 lb Weight
[2018-02-08 15:13] VITALS: BP 130/70
--- NOTE | 2018-02-08 19:24 | RADIOLOGY REPORT ---
EXAMINATION: PORTABLE CHEST 1 VIEW CLINICAL INFORMATION: Fever and cough. COMPARISON: 02/03/2018. TECHNIQUE: Portable frontal view of the chest was obtained. FINDINGS: Lungs are mildly hypoexpanded. There are increased markings now present at the left base partially obscuring the left hemidiaphragm this is more than would typically be expected for atelectasis. Mild right basilar markings likely due to atelectasis. No significant effusion edema or pneumothorax. Cardiac silhouette within normal limits for size. IMPRESSION: Hypoexpanded. There are bibasilar markings present left more so than right. Although some this is likely due to atelectasis, early infiltrate, especially at the left base cannot be excluded. Clinical correlation and follow-up to assure resolution would be helpful.
[2018-02-09 06:49] VITALS: BP 132/64
--- NOTE | 2018-02-09 07:04 | PN- Housestaff ---
Subjective Follow-up For: DKA/HHS Tele-Events Since Last Visit: sinus rhythm HR 70s, no events Subjective: no complaints today Review of Systems Constitutional: Reports: see HPI. Objective Last 24 Hrs of Vital Signs/I&O Vital Signs Date Time Temp Pulse Resp B/P B/P Pulse O2 O2 Flow FiO2 Mean Ox Delivery Rate 02/09 1412 97 Room Air 02/09 0756 132/76 02/09 0755 132/76 02/09 0649 98.5 79 20 132/64 97 Room Air 02/08 2210 98.3 69 20 95 Room Air 02/08 2127 72 148/62 02/08 1513 98.0 78 20 130/70 96 Intake & Output 02/09 1600 02/09 0800 02/09 0000 Intake Total 425 690 Output Total Balance 425 690 Intake, Oral 425 690 Patient 66.224 kg Weight Physical Exam General Appearance: Alert, Oriented X3, Cooperative, No Acute Distress Cardiovascular: Regular Rate, Normal S1, Normal S2, No Murmurs Lungs: Clear to Auscultation, Normal Air Movement Abdomen: Normal Bowel Sounds, Soft, No Tenderness, No Masses Extremities: No Clubbing, No Cyanosis, No Edema, Normal Pulses Current Medications: Current Medications Sig/Travon Start time Last Medication Dose Route Stop Time Status Admin Acetaminophen 650 MG ONCE ONE 02/08 1615 DC 02/08 PO 02/08 1616 1610 Albuterol Sulfate 3 ML Q4P PRN 02/04 1045 AC 02/07 INH 1924 Amlodipine Besylate 5 MG DAILY 02/04 09 AC 02/09 PO 0756 Aspirin Buffered 81 MG DAILY 02/04 0900 AC 02/09 PO 0756 Atorvastatin Calcium 40 MG DAILY 02/04 0900 AC 02/09 PO 0757 Benzonatate 100 MG TID 02/04 09 AC 02/09 PO 1258 Heparin Sodium 5,000 UNIT Q8 02/04 1400 AC 02/09 (Porcine) SC 1258 Insulin Aspart 0 TIDAC/HS 02/05 1200 AC 02/09 SC 1214 Insulin Detemir 10 UNITS BID 02/04 0830 AC 02/09 SC 0755 Metoprolol Tartrate 25 MG BID 02/04 0011 AC 02/09 PO 0755 Nitroglycerin 0.4 MG DAILY 02/06 0200 AC 02/09 TOP 0756 Omeprazole 40 MG DAILY AC 02/07 0946 AC 02/09 PO 0621 Pioglitazone HCl 30 MG DAILY 02/08 1238 02/09 PO 0756 Assessment/Plan Assessment: 72 year old gentleman w/ a PMHx of type 2 diabetes, former smoker, CAD s/p PCI x2 was sent to the hospital for hyperglycemia by a PCP and admitted to ICU for HHS treated with an IV insulin drip now stabilized on levemir and novolog Hyperosmolar hyperglycemic state: Was ketone positive, VBG pH 7.29 on arrival Treated with IV insulin drip with resolution of anion gap acidosis Continue insulin NovoLog according to sliding scale. Continue Levemir 20 units subcutaneous daily Add pioglitazone and metformin for discharge Follow endocrinology recommendations, follow up with Dr. Emmy Browne: Reduced at bedside without complication CAD s/p PCI with stents Continue aspirin, statin, metoprolol transdermal nitro, and amlodipine Negative stress test History of hyperlipidemia: Continue atorvastatin Diabetic diet DVT ppx-ALPs and subcutaneous heparin 5000 units subcutaneous q8h Full code Problem List: 1. Hyperosmolar non-ketotic state in patient with type 2 diabetes mellitus Pain Ratin Pain Location: n/a Pain Goal: Pain 4 or less Pain Plan: prn Tomorrow's Labs & Rationales: none, discharge
--- NOTE | 2018-02-09 07:46 | PN- Diabetes ---
Assessment/Plan Diabetes Assessment: The patient states he feels well. He wants to go home. He was kept in the hospital because he needs to be trained on taking insulin. At the present time he is on pioglitazone 30 mg daily along with Levemir 10 units twice a day and sliding scale NovoLog before meals. His blood sugars were somewhat high yesterday with 237 before breakfast, 258 before lunch, 240 before dinner, and 265 at bedtime. This morning his blood sugars 231. Plan: Suggest begin metformin 850 mg twice a day with breakfast and dinner. Change Levemir to 20 units once a day given in the a.m.. Continue pioglitazone and sliding scale NovoLog as written. We should check the patient's anti-shanae antibody. The patient's white blood count was becoming low yesterday and that needs to be repeated. Subjective Subjective: Feels okay Review of Systems Constitutional: Denies: chills, fever. Cardiovascular: Denies: chest pain. Respiratory: Denies: cough, short of breath. Gastrointestinal: Denies: abdominal pain, nausea. Skin: Reports: no symptoms. Objective Last 24 Hrs of Vital Signs/I&O Vital Signs Date Time Temp Pulse Resp B/P B/P Pulse O2 O2 Flow FiO2 Mean Ox Delivery Rate 02/09 0649 98.5 79 20 132/64 97 Room Air 02/08 2210 98.3 69 20 95 Room Air 02/08 2127 72 148/62 02/08 1513 98.0 78 20 130/70 96 02/08 1039 96 Room Air Room Air 02/08 0800 Room Air 02/08 0759 80 136/64 02/08 0759 80 136/64 02/08 0758 80 136/64 Intake & Output 02/09 0800 02/09 0000 02/08 1600 Intake Total 425 690 720 Output Total 250 Balance 425 690 470 Intake, Oral 425 690 720 Output, Urine 250 Patient 146 lb Weight Physical Exam General Appearance: alert, awake, comfortable Head: normal appearance Neck: normal inspection Respiratory: normal breath sounds Cardiovascular: regular rate/rhythm Abdomen: normal bowel sounds Extremities: normal inspection Current Medications: Current Medications Sig/Travon Start time Last Medication Dose Route Stop Time Status Admin Acetaminophen 650 MG ONCE ONE 02/08 1615 DC 02/08 PO 02/08 1616 1610 Albuterol Sulfate 3 ML Q4P PRN 02/04 1045 AC 02/07 INH 1924 Amlodipine Besylate 5 MG DAILY 02/04 0900 AC 02/08 PO 0759 Aspirin Buffered 81 MG DAILY 02/04 0900 AC 02/08 PO 0759 Atorvastatin Calcium 40 MG DAILY 02/04 09 AC 02/08 PO 0759 Benzonatate 100 MG TID 02/04 0900 AC 02/08 PO 2121 Heparin Sodium 5,000 UNIT Q8 02/04 1400 AC 02/09 (Porcine) SC 06 Insulin Aspart 0 TIDAC/HS 02/05 1200 AC 02/08 SC 212 Insulin Detemir 10 UNITS BID 02/04 0830 AC 02/08 SC 2121 Metoprolol Tartrate 25 MG BID 02/04 0011 AC 02/08 PO 2127 Nitroglycerin 0.4 MG DAILY 02/06 0200 AC 02/08 TOP 0759 Nystatin 5 ML BID 02/04 0900 DC 02/08 PO 0759 Omeprazole 40 MG DAILY AC 02/07 0946 AC 02/09 PO 0621 Phosphate 250 MG PC AND AT BEDTIME 02/05 1300 DC 02/08 PO 0759 Pioglitazone HCl 30 MG DAILY 02/08 1238 AC 02/08 PO 1542 Findings Pertinent Lab/Rajinder Results: Laboratory Tests 02/08 02/08 1150 1005 Chemistry Sodium (137 - 145 mmol/L) 138 Potassium (3.5 - 5.1 mmol/L) 4.2 Chloride (98 - 107 mmol/L) 100 Carbon Dioxide (22 - 30 mmol/L) 29 Anion Gap (5 - 16) 9 BUN (9 - 20 mg/dL) 12 Creatinine (0.7 - 1.2 mg/dL) 0.9 Estimated GFR (>60 ml/min) > 60 BUN/Creatinine Ratio (7 - 25 %) 13.3 Hematology CBC w Diff NO MAN DIFF REQ WBC (4.8 - 10.8 /CUMM) 2.5 L RBC (4.70 - 6.10 /CUMM) 4.29 L Hgb (14.0 - 18.0 G/DL) 13.4 L Hct (42 - 52 %) 40.1 L MCV (80.0 - 94.0 FL) 93.6 MCH (27.0 - 31.0 PG) 31.2 H MCHC (33.0 - 37.0 G/DL) 33.3 RDW (11.5 - 14.5 %) 12.6 Plt Count (130 - 400 /CUMM) 163 MPV (7.4 - 10.4 FL) 10.4 Gran % (42.2 - 75.2 %) 60.0 Lymphocytes % (20.5 - 51.1 %) 26.5 Monocytes % (1.7 - 9.3 %) 11.9 H Eosinophils % (0 - 5 %) 0.9 Basophils % (0.0 - 2.0 %) 0.7 Absolute Granulocytes (1.4 - 6.5 /CUMM) 1.5 Absolute Lymphocytes (1.2 - 3.4 /CUMM) 0.7 L Absolute Monocytes (0.10 - 0.60 /CUMM) 0.3 Absolute Eosinophils (0.0 - 0.7 /CUMM) 0 Absolute Basophils (0.0 - 0.2 /CUMM) 0 Urines Urine Color (YEL,AMB,STR) YEL Urine Clarity (CLEAR) CLEAR Urine pH (5.0 - 8.0) 7.0 Ur Specific [place] (1.001 - 1.035) 1.015 Urine Protein (NEG,<30 MG/DL) TRACE H Urine Ketones (NEG) NEG Urine Nitrite (NEG) NEG Urine Bilirubin (NEG) NEG Urine Urobilinogen (0.1 - 1.0 EU/dl) 1.0 Ur Leukocyte Esterase (NEG) TRACE H Ur Microscopic SEDIMENT EXAMINED Urine WBC (0 - 2 /HPF) RARE Ur Epithelial Cells (NONE,FEW) FEW Urine Bacteria (NEG/NONE) FEW H Micro UA Comment BUDDING YEAST H Urine Hemoglobin (NEG) NEG Urine Glucose (N MG/DL) >=1000 H
[2018-02-09 07:56] VITALS: BP 132/76
[2018-02-09] MEDS ORDERED: PIOGLITAZONE HC30 M1 PO (10:03)
[2018-02-09] MEDS ORDERED: NOVOLOG FL100 UNIT/1 SC ×2 (10:09→11:19)
--- NOTE | 2018-02-09 10:39 | PN- Att Addend ---
Attending Addendum Attending Brief Note Patient seen and examined. Plan of care discussed with the medical team and the patient. Available lab work and radiology test reports were reviewed. Patient is resting comfortably in bed. He denies any new complaints. Patient was noted to have a temperature 100.7 therefore and has subsided there has been no further fever noted. Patient denies any new symptoms such as sore throat coughing chest pain nausea vomiting or diarrhea. He apparently had complained of left the upper quadrant abdominal pain last night but this morning he says the pain has resolved on its own. Exam: General: Patient awake alert oriented without any distress CVS: S1 plus S2 without any murmur or gallops Chest: Few scattered crepitation without any wheeze. There is no respiratory distress. 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 Plan * Patient his family have been educated about checking blood sugars at home and also to give insulin. * Agree with starting Glucophage; adjust Levemir as per endocrinology recommendations * Outpatient urology follow-up for phimosis * Patient currently stable for discharge today * Continue PPI Prilosec 20 mg daily; * Check CBC next week to follow-up low white cell count Current Medications Sig/Travon Start time Last Medication Dose Route Stop Time Status Admin Acetaminophen 650 MG ONCE ONE 02/08 1615 DC 02/08 PO 02/08 1616 1610 Albuterol Sulfate 3 ML Q4P PRN 02/04 1045 AC 02/07 INH 1924 Amlodipine Besylate 5 MG DAILY 02/04 09 AC 02/09 PO 0756 Aspirin Buffered 81 MG DAILY 02/04 09 AC 02/09 PO 0756 Atorvastatin Calcium 40 MG DAILY 02/04 0900 AC 02/09 PO 0757 Benzonatate 100 MG TID 02/04 09 AC 02/09 PO 0755 Heparin Sodium 5,000 UNIT Q8 02/04 1400 AC 02/09 (Porcine) TN 0620 Insulin Aspart 0 TIDAC/HS 02/05 1200 AC 02/09 SC 0755 Insulin Detemir 10 UNITS BID 02/04 0830 AC 02/09 SC 0755 Metoprolol Tartrate 25 MG BID 02/04 0011 AC 02/09 PO 0755 Nitroglycerin 0.4 MG DAILY 02/06 0200 AC 02/09 TOP 0756 Omeprazole 40 MG DAILY AC 02/07 0946 AC 02/09 PO 0621 Phosphate 250 MG PC AND AT BEDTIME 02/05 1300 DC 02/08 PO 0759 Pioglitazone HCl 30 MG DAILY 02/08 1238 AC 02/09 PO 0756 Laboratory Tests 02/08/18 1150: Urine Color YEL, Urine Clarity CLEAR, Urine pH 7.0, Ur Specific [place] 1.015, Urine Protein TRACE H, Urine Ketones NEG, Urine Nitrite NEG, Urine Bilirubin NEG, Urine Urobilinogen 1.0, Ur Leukocyte Esterase TRACE H, Ur Microscopic SEDIMENT EXAMINED, Urine WBC RARE, Ur Epithelial Cells FEW, Urine Bacteria FEW H, Micro UA Comment BUDDING YEAST H, Urine Hemoglobin NEG, Urine Glucose >=1000 H 02/08/18 1005: Anion Gap 9, Estimated GFR > 60, BUN/Creatinine Ratio 13.3, CBC w Diff NO MAN DIFF REQ, RBC 4.29 L, MCV 93.6, MCH 31.2 H, MCHC 33.3, RDW 12.6, MPV 10.4, Gran % 60.0, Lymphocytes % 26.5, Monocytes % 11.9 H, Eosinophils % 0.9, Basophils % 0.7, Absolute Granulocytes 1.5, Absolute Lymphocytes 0.7 L, Absolute Monocytes 0.3, Absolute Eosinophils 0, Absolute Basophils 0 02/07/18 0629: Troponin I Cancelled 02/07/18 0616: Phosphorus 3.9, Troponin I < 0.01, Amylase 122 H, Lipase 311 H Microbiology 02/07 2335 BLOOD: Blood Culture - RES 02/07 2330 BLOOD: Blood Culture - RES Vital Signs Date Time Temp Pulse Resp B/P B/P Pulse O2 O2 Flow FiO2 Mean Ox Delivery Rate 02/09 0756 132/76 02/09 0755 132/76 02/09 0649 98.5 79 20 132/64 97 Room Air 02/08 2210 98.3 69 20 95 Room Air 04/24 2127 72 148/62 02/08 1513 98.0 78 20 130/70 96 02/08 1039 96 Room Air Room Air Intake & Output 02/09 1600 02/09 0800 02/09 0000 Intake Total 425 690 Output Total Balance 425 690 Intake, Oral 425 690 Patient 146 lb Weight cxr 02/08 Hypoexpanded. There are bibasilar markings present left more so than right. Although some this is likely due to atelectasis, early infiltrate, especially at the left base cannot be excluded. Clinical correlation and follow-up to assure resolution would be helpful. Blood cultures from February 07 are negative Total time spent in preparation for discharge plan, patient education, and CMR preparation was 35 minutes.
[2018-02-09] MEDS ORDERED: LEVEMIR FL100 UNIT/1 SC ×2 (11:19→14:35)
--- NOTE | 2018-02-09 11:50 | PN- Cardiology ---
Subjective Subjective: No complaints. Objective Vital Signs and I&Os Vital Signs Date Time Temp Pulse Resp B/P B/P Pulse O2 O2 Flow FiO2 Mean Ox Delivery Rate 02/09 0756 132/76 02/09 0755 132/76 02/09 0649 98.5 79 20 132/64 97 Room Air 02/08 2210 98.3 69 20 95 Room Air 02/08 2127 72 148/62 02/08 1513 98.0 78 20 130/70 96 Intake & Output 02/09 1600 02/09 0802/09 0000 02/08 1600 02/08 0000 Intake Total 425 690 720 240 300 Output Total 250 Balance 425 690 470 240 300 Intake, Oral 425 690 720 240 300 Output, Urine 250 Patient 146 lb 140 lb Weight Physical Exam: Well-developed, well-nourished elderly -[place] male in no acute distress. Vital signs: See above. Neck: No JVD, no bruits. Lungs: Clear to auscultation bilaterally. Heart: S1, S2 no murmur, gallop, or rub. Abdomen: Soft, nontender, positive bowel sounds. Extremities: No edema. Current Medications: Current Medications Sig/Travon Start time Last Medication Dose Route Stop Time Status Admin Acetaminophen 650 MG ONCE ONE 02/08 1615 DC 02/08 PO 02/08 1616 1610 Albuterol Sulfate 3 ML Q4P PRN 02/04 1045 AC 02/07 INH 1924 Amlodipine Besylate 5 MG DAILY 02/04 09 AC 02/09 PO 0756 Aspirin Buffered 81 MG DAILY 02/04 09 AC 02/09 PO 0756 Atorvastatin Calcium 40 MG DAILY 02/04 0900 AC 02/09 PO 0757 Benzonatate 100 MG TID 02/04 09 AC 02/09 PO 0755 Heparin Sodium 5,000 UNIT Q8 02/04 1400 AC 02/09 (Porcine) SC 0620 Insulin Aspart 0 TIDAC/HS 02/05 1200 AC 02/09 SC 0755 Insulin Detemir 10 UNITS BID 02/04 0830 AC 02/09 SC 0755 Metoprolol Tartrate 25 MG BID 02/04 0011 AC 02/09 PO 0755 Nitroglycerin 0.4 MG DAILY 02/06 0200 AC 02/09 TOP 0756 Omeprazole 40 MG DAILY AC 02/07 0946 AC 02/09 PO 0621 Phosphate 250 MG PC AND AT BEDTIME 02/05 1300 DC 02/08 PO 0759 Pioglitazone HCl 30 MG DAILY 02/08 1238 AC 02/09 PO 0756 Results Last 48 Hrs of Labs/Mics: Laboratory Tests 02/08/18 1150: Urine Color YEL, Urine Clarity CLEAR, Urine pH 7.0, Ur Specific [place] 1.015, Urine Protein TRACE H, Urine Ketones NEG, Urine Nitrite NEG, Urine Bilirubin NEG, Urine Urobilinogen 1.0, Ur Leukocyte Esterase TRACE H, Ur Microscopic SEDIMENT EXAMINED, Urine WBC RARE, Ur Epithelial Cells FEW, Urine Bacteria FEW H, Micro UA Comment BUDDING YEAST H, Urine Hemoglobin NEG, Urine Glucose >=1000 H 02/08/18 1005: Anion Gap 9, Estimated GFR > 60, BUN/Creatinine Ratio 13.3, CBC w Diff NO MAN DIFF REQ, RBC 4.29 L, MCV 93.6, MCH 31.2 H, MCHC 33.3, RDW 12.6, MPV 10.4, Gran % 60.0, Lymphocytes % 26.5, Monocytes % 11.9 H, Eosinophils % 0.9, Basophils % 0.7, Absolute Granulocytes 1.5, Absolute Lymphocytes 0.7 L, Absolute Monocytes 0.3, Absolute Eosinophils 0, Absolute Basophils 0 Recent Imaging Studies: Nuclear stress test 02/07/2018: Normal exercise stress and resting myocardial perfusion study with normal left ventricular wall motion and ejection fraction. Echocardiogram 02/03/2018: Normal size left ventricle. Normal left ventricular wall thickness with proximal septal thickening. Borderline reduced global left ventricular systolic function. Borderline normal left ventricular ejection fraction estimated at 50- 55%. Abnormal relaxation filling pattern of the left ventricle for age (stage 1 diastolic dysfunction). Normal right ventricular size and function. Normal Trace mitral regurgitation. Trace aortic regurgitation. Trace tricuspid regurgitation. No evidence of pulmonary hypertension. Assessment/Plan Assessment/Plan [id number] w/ hx fmr tob use, HTN, HLD, DM, & CAD (s/p VT with stents x2) who, while visiting [place] from [place], [place] developed loss of appetite, nausea, & recurrent episodes of retching and who presented to the ED 02/03/2018 w/ c/o CP w/ widespread ECG changes consistent with possible ACS, who fortunately did not have a significant increase in his serial troponins. Risk stratification was performed with an imaging stress test on 02/07/2018 which was fortunately negative for ischemia. He has had intermittent episodes of chest discomfort that are likely on a musculoskeletal basis. Continue telemetry? Yes
[2018-02-09] MEDS ORDERED: GLUCOPHAGE850 M2 PO (13:04)
--- NOTE | 2018-02-09 13:07 | Discharge Summary ---
Visit Information Visit Dates Admission Date: 02/03/18 Discharge Date: 02/09/18 Hospital Course Course Attending Physician: Aisha CAO, Ld Primary Care Physician: Patient Has No Primary Care Dr Referred to Dr. Howe Hospital Course: 72 year old gentleman with a past medical history significant for diabetes mellitus, former smoker, coronary artery disease s/p PCI x 2 stents who recently moved to the area and saw a family member's primary care physician and was sent to the emergency department for hyperglycemia. The patient was admitted to the ICU for treatment of hyperosmolar hyperglycemic state, acute kidney injury, metabolic acidosis, and metabolic encephalopathy. The patient was treated with aggressive fluid resuscitation, intravenous insulin drip, and supplemental potassium in consultation with endocrinology. Serum osmoles were 350 with serum glucose of 1200, pseudohyponatremia to 127 on presentation. Serum ketone positive and venous blood gas showed a pH of 7.29. His high anion gap metabolic acidosis, severe hyperglycemia, acute kidney injurym and metabolic encephalopathy all quickly improved with treatment. He was able to eat and have adequate glycemic control on subcutaneous long acting and short acting sliding scale insulin coverage with meals. The patient was also started on pioglitazone and metformin during discharge and will follow up with Dr. Booth of endocrinology. He was also discharged with home health services to reinforce glucometer home testing and insulin use at home, presumably medication noncompliance was the cause of his HHS. The patient had nonspecific complaints of chest pain, nausea, and vomiting on presentation but was a poor historian. Serial troponins were negative, a CTA of the chest was unremarkable except for some mild emphysematous changes and a nuclear exercise stress test was negative for myocardial ischemia. His home medications of aspirin, statin, metoprolol, and amlodipine were continued. There was no infectious source for HHS identified, he had some complaints of penile pain, a phimosis was reduced at the bedside, urinalysis was negative for evidence of infection. He may need an outpatient referral to urology if this recurs. Referrals were made to Dr. Howe for primary care and Dr. Booth for endocrinology follow up. Allergies: Coded Allergies: No Known Allergies (02/03/18) Disposition Summary Disposition Principal Diagnosis: Hyperosmolar hyperglycemic state High anion gap metabolic acidosis Acute kidney injury Metabolic encephalopathy Phimosis Additional Diagnosis: Coronary artery disease Diabetes mellitus Hypertension Hyperlipidemia Discharge Disposition: home health services Discharge Instructions General Discharge Information Code Status: Full Code Patient's Diet: Diabetic diet Patient's Activity: As tolerated Follow-Up Instructions/Appts: Please follow up with your primary care physician. Referral to Dr. Howe. Please follow up with endocrinology for you diabetes. Referral for Dr. Booth. Medications at Discharge Discharge Medications: Continue taking these medications: Atorvastatin Calcium (Lipitor) 40 MG TABLET 1 Tablet ORAL DAILY Comments: Last Taken:02/08/18 Time:5PM Metoprolol Tartrate (Metoprolol Tartrate) 25 MG TABLET 1 Tablet ORAL TWICE DAILY Comments: Last Taken:02/09/18 Time:0900 Multiple Vitamin (Multivitamins) 1 EACH TABLET 1 Tablet ORAL DAILY Amlodipine Besylate (Amlodipine Besylate) 5 MG TABLET 1 Tablet ORAL DAILY Comments: Last Taken:02/09/18 Time:0900 Fosinopril Sodium (Fosinopril Sodium) 20 MG TABLET 1 Tablet ORAL DAILY Aspirin (Ecotrin*) 81 MG TABLET.DR 1 Tablet ORAL DAILY Comments: Last Taken:02/09/18 Time:0900 Metformin HCl (Glucophage) 850 MG TABLET 1 Tablet ORAL TWICE DAILY Qty = 60 This prescription has been renewed Start taking the following new medications: Insulin Aspart, Recombinant (Novolog Flexpen) 100 UNIT/ML INSULN.PEN 0 Inject into fatty tissue BEFORE MEALS AND AT BEDTIME Qty = 1 No Refills Instructions: BLOOD SUGAR UNITS AT BEDTIME 80-150 4 0 151-200 6 0 201-250 7 0 251-300 8 2 301-350 9 3 351+ 10 4 Comments: Last Taken:02/09/18 Time:1200 Omeprazole (Omeprazole) 20 MG CAPSULE.DR 1 Capsule ORAL DAILY BEFORE BREAKFAST Qty = 30 No Refills Comments: Last Taken:02/09/18 Time:0600 Pioglitazone HCl (Pioglitazone HCl) 30 MG TABLET 1 Tablet ORAL DAILY Qty = 30 No Refills Comments: Last Taken:02/09/18 Time:1000 Insulin Glargine,Hum.rec.anlog (Lantus Solostar) 100 UNIT/ML (3 ML) INSULN.PEN 20 Unit Inject into fatty tissue DAILY Qty = 15 No Refills Copies To: Carley CAO,Hill Brewer; Emmy CAO,Rodrigue Mason Attending MD Review Statement Documenting Attending: Aisha CAO,Ld
[2018-02-09] MEDS ORDERED: LANTUS SOL100 UNIT/1 SC (16:20)
== END 2018-02-09 15:30 | disposition home health service (06) | DRG 637 ==
LOC: ERH 16:44 → ERHI 19:33 → CRI 19:33 → 1NO 19:33 → ENRESERV 22:39 → CRI 02-04 00:23 → ENTRNSPT 02-04 17:44 → EDTRNSPTSTS 02-04 17:49 → 1NO 02-04 17:57 → CMPTRNSPT 02-04 18:00 → 1NO 02-06 14:55 → ENPENDDIS 02-09 11:03 → ENTRNSPT 02-09 14:52 → CMPTRNSPT 02-09 15:22 → 1NO 02-09 15:30
PROVIDERS: Emergency Medicine; Internal Medicine; Physician Assistant Medical
DX: E11.00 Type 2 diabetes mellitus with hyperosmolarity without nonketotic hyperglycemic-hyperosmolar coma (NKHHC) (principal); G93.41 Metabolic encephalopathy; N17.9 Acute kidney failure, unspecified; E87.1 Hypo-osmolality and hyponatremia; E87.2 Acidosis; E87.5 Hyperkalemia; Z79.84 Long term (current) use of oral hypoglycemic drugs; E11.8 Type 2 diabetes mellitus with unspecified complications; Z91.14 Patient's other noncompliance with medication regimen; Z87.891 Personal history of nicotine dependence; I25.10 Atherosclerotic heart disease of native coronary artery without angina pectoris; Z98.61 Coronary angioplasty status; E78.5 Hyperlipidemia, unspecified; I10 Essential (primary) hypertension; N47.1 Phimosis
CPT/HCPCS: 1NP; ERO; 36415; 36592; 71045; 71046; 78452; 80307; 81001; 82436; 87040; 87070; 87804; 87804-59; 93005; 93010; 93016; 93017; 93306; 96360; 96361; 99291; A9502; J0610; J1644; J1815; J7042

== ENCOUNTER 2018-02-26 21:06 | Emergency (ER) | payer OTHER ==
[~2018-02-26] VITALS: Ht 165.1 cm; Wt 63.5 kg
[~2018-02-26 21:06] MED LIST: AMLODIPINE BESYL5 M1 PO; ASPIRIN EC81 M1 PO; FOSINOPRIL SODI20 M1 PO; GLUCOPHAGE850 M2 PO; LANTUS SOL100 UNIT/1 SC; LEVEMIR FL100 UNIT/1 SC; LIPITOR40 M1 PO; METOPROLOL TART25 M1 PO; MULTIVITAMINS1 EAC9 PO; NORVASC10 M1 PO; NOVOLOG FL100 UNIT/1 SC; OMEPRAZOLE20 M2 PO; PIOGLITAZONE HC30 M1 PO
--- NOTE | 2018-02-26 23:15 | ED GENERAL ADULT ---
History of Present Illness General Chief Complaint: Low Back Pain/Injury Stated Complaint: RIGHT SIDE BACK PAIN Source: patient, family, old records Exam Limitations: no limitations Vital Signs & Intake/Output Vital Signs & Intake/Output Vital Signs Date Time Temp Pulse Resp B/P B/P Pulse O2 O2 Flow FiO2 Mean Ox Delivery Rate 02/27 2112 98.2 87 18 158/79 95 Room Air ED Intake and Output 02/27 0000 02/26 1200 Intake Total 500 Output Total Balance 500 Intake, IV 500 Patient 140 lb Weight Weight Reported by Patient Measurement Method Allergies Coded Allergies: No Known Allergies (02/03/18) Reconcile Medications Acetaminophen 500 MG TABLET 2 TAB PO Q6 PRN PAIN Amlodipine Besylate 5 MG TABLET 1 TAB PO DAILY BP (Reported) Aspirin (Ecotrin*) 81 MG TABLET.DR 1 TAB PO DAILY HEART/BLOOD (Reported) Atorvastatin Calcium (Lipitor) 40 MG TABLET 1 TAB PO DAILY CHOLESTEROL ( Reported) Fosinopril Sodium 20 MG TABLET 1 TAB PO DAILY BP (Reported) Insulin Aspart, Recombinant (Novolog Flexpen) 100 UNIT/ML INSULN.PEN 0 SC TIDAC/HS DM BLOOD SUGAR UNITS AT BEDTIME 80-150 4 0 151-200 6 0 201-250 7 0 251-300 8 2 301-350 9 3 351+ 10 4 Insulin Glargine,Hum.rec.anlog (Lantus Solostar) 100 UNIT/ML (3 ML) INSULN.PEN 20 UNIT SC DAILY dm Metformin HCl (Glucophage) 850 MG TABLET 1 TAB PO BID DM Metoprolol Tartrate 25 MG TABLET 1 TAB PO BID HEART/BP (Reported) Multiple Vitamin (Multivitamins) 1 EACH TABLET 1 TAB PO DAILY SUPPLEMENT ( Reported) Omeprazole 20 MG CAPSULE.DR 1 CAP PO DAILY AC GI Pioglitazone HCl 30 MG TABLET 1 TAB PO DAILY DM Triage Note: PT FROM HOME C/O RIGHT FLANK PAIN X1 DAY. PT STATES HE AWOKE THIS MORNING WITH RIGHT FLANK PAIN, DENIES TRAUMA OR INJURY. PT STATES THE PAIN 10/10 DOES NOT RADIATE ANYWHERE. PT DENIES N/V/D. PT STATES "I HAVE TO PEE AND I CANT". PT DENIES HX OF UTI OR KIDNEY STONES. PT STATES URINARY FREQUENCY BUT HE CANNOT VOID. DENIES BURNING UPON URINATION. VSS. AFEBRILE. Triage Nurses Notes Reviewed? yes Onset: Abrupt Duration: hour(s): (18), constant, continues in ED, getting worse Timing: single episode today Injury Environment: home Severity: moderate, severe Severity Numbers: 10 No Modifying Factors: none Associated Symptoms: back pain HPI: 72-year-old male past medical history of coronary artery disease, hypertension, hyperlipidemia, diabetes mellitus for evaluation of pain in his right flank/ right lower ribs since began early this morning approximately 18 hours ago while he was at rest and been persistent since. The pain is located in the right ribs and right flank does not radiate. It is worse with movement and deep inspiration. He denies nausea vomiting diarrhea shortness of breath or chest pain. He does report some associated urinary frequency and feels like it is difficult to urinate. He has been urinating today. No fevers, back pain, hematuria, lower extremity edema or recent surgery recent trauma. No history DVT. He has not taken any medicine for the pain. He does rate the pain as 10 on a 10 currently. He's never had this before. No history of kidney stones. (John West) Past History Travel History Traveled to [place] past 21 day No Medical History Any Pertinent Medical History? see below for history Cardiovascular: CAD, hypertension, hyperlipidemia, [place] X2 (s/p stents x 2) Endocrine: diabetes History of MRSA: Yes History of VRE: No History of CDIFF: No Surgical History Surgical History: non-contributory Psychosocial History Who do you live with Family What is your primary language Malay Tobacco Use: Quit >30 days ago Family History Family History, If Any: Relation not specified for: *No pertinent family history Hx Contributory? No (John West) Review of Systems Review of Systems Constitutional: Reports: no symptoms. EENTM: Reports: no symptoms. Respiratory: Reports: no symptoms. Cardiovascular: Reports: no symptoms. GI: Reports: see HPI, abdominal pain (flank). Genitourinary: Reports: hesitation. Musculoskeletal: Reports: see HPI, muscle pain, muscle stiffness. Skin: Reports: no symptoms. Neurological/Psychological: Reports: no symptoms. Hematologic/Endocrine: Reports: no symptoms. Immunologic/Allergic: Reports: no symptoms. All Other Systems: Reviewed and Negative (John West) Physical Exam Physical Exam General Appearance: well developed/nourished, alert, awake, mild distress, thin Head: atraumatic, normal appearance Eyes: Bilateral: normal appearance, PERRL, EOMI. Ears, Nose, Throat: normal pharynx, normal ENT inspection, hearing grossly normal Neck: normal inspection, supple, full range of motion Respiratory: normal breath sounds, chest non-tender, no respiratory distress, lungs clear Cardiovascular: regular rate/rhythm, normal peripheral pulses Peripheral Pulses: 2+ radial (R), 2+ radial (L) Gastrointestinal: normal bowel sounds, soft, no organomegaly, right flank, right lateral lower ribs tender to palpation, pain is reproducible with range of motion of the trunk Back: normal inspection, normal range of motion, no vertebral tenderness, no CVA tenderness Extremities: normal inspection, normal range of motion, no edema Neurologic/Psych: no motor/sensory deficits, awake, alert, oriented x 3, normal gait, normal mood/affect Skin: intact, normal color, warm/dry Lymphatic: no anterior cervical kimo Core Measures ACS in differential dx? No CVA/TIA Diagnosis: No Sepsis Present: No Sepsis Focused Exam Completed? No (Jean MIRANDA,John) Progress Differential Diagnoses I considered the following diagnoses in my evaluation of the patient: [Muscle strain, kidney stone, pyelonephritis, UTI, prostatitis, aortic dissection, PE, pneumonia, rib fracture, acute coronary syndrome, cholecystitis] Plan of Care: Orders Procedure Date/time Status LACTIC ACID 02/26 2315 Complete TROPONIN LEVEL 02/26 2314 Complete COMPREHENSIVE METABOLIC PANEL 02/26 2314 Complete CBC WITHOUT DIFFERENTIAL 02/26 2314 Complete EKG 02/26 2314 Active URINALYSIS 02/26 2229 Complete Laboratory Tests 02/26/182327: Lactic Acid 1.3 02/26/18 2328: Anion Gap 11, Estimated GFR > 60, BUN/Creatinine Ratio 21.4, Glucose 180 H, Calcium 9.7, Total Bilirubin 0.6, AST 31, ALT 22, Alkaline Phosphatase 88, Troponin I < 0.01, Total Protein 7.3, Albumin 3.9, Globulin 3.4, Albumin/ Globulin Ratio 1.1, CBC w Diff NO MAN DIFF REQ, RBC 3.76 L, MCV 93.2, MCH 31.1 H, MCHC 33.4, RDW 13.2, MPV 7.3 L, Gran % 66.0, Lymphocytes % 22.0, Monocytes % 10.0 H, Eosinophils % 1.5, Basophils % 0.5, Absolute Granulocytes 4.3, Absolute Lymphocytes 1.4, Absolute Monocytes 0.7 H, Absolute Eosinophils 0.1, Absolute Basophils 0 02/26/18 2230: Urine Color YEL, Urine Clarity CLEAR, Urine pH 6.0, Ur Specific [place] 1.010, Urine Protein NEG, Urine Ketones NEG, Urine Nitrite NEG, Urine Bilirubin NEG, Urine Urobilinogen 0.2, Ur Leukocyte Esterase NEG, Ur Microscopic EXAM NOT REQUIRED, Urine Hemoglobin NEG, Urine Glucose 250 H Patient seen and evaluated. He is here with right flank and right lateral lower rib pain. Started when he was at rest has been present for 18 hours constantly. The pain is reproducible with palpation and range of motion. Vital signs are stable. We'll check basic labs. Patient medicated with IV Tylenol. Due to patient's comorbidities and the severity of the pain we'll check a CTA of the chest abdomen and pelvis to assess for aortic dissection, mesenteric ischemia, kidney stones and PE. Patient is doing much better after receiving IV Tylenol. He is able to walk around the room without difficulty. He has a steady gait. He is moving much easier now. Blood work does not show any acute changes. Potassium is mildly elevated at 5.2. No EKG changes. CTA does not show any acute findings. Patient was urinating normally here. Does have a present for greater than 18 hours. Do not sound cardiac. Reviewed all results of today's visit with patient. Advised to rest avoid excessive activity or lifting or bending. Follow with primary care doctor consider urology referral. Discussed return precautions in detail. Case discussed with Dr. adams and he agrees. Diagnostic Imaging: Viewed by Me: CT Scan. Discussed w/RAD: CT Scan. Radiology Impression: PATIENT: CONCEPCIÓN HANLEY PRESENT AGE: 72 PATIENT ACCOUNT NO: [id number] : 44 LOCATION: [facility] ORDERING PHYSICIAN: John MIRANDA SERVICE DATE: 02/27/18 EXAM TYPE: CAT - CT ABD & PELVIS ANGIOGRAM; CTA CHEST-AORTIC DISSECTION EXAMINATION: CTA CHEST, ABDOMEN, PELVIS EXAM FOR AORTIC DISSECTION CLINICAL INFORMATION: Right-sided pain. COMPARISON: February 03, 2018. TECHNIQUE: Contiguous helical images of the chest, abdomen and pelvis were obtained prior to and following the administration of IV contrast. Multiplanar reconstructions were performed. MIPS were obtained and reviewed. 3-D reconstructions will be performed and reviewed by the Interventional Radiology staff. DLP: 964 mGy-cm. CONTRAST: 95 cc of Optiray 320 were administered without incident. FINDINGS: The heart is of normal size. There is no pericardial effusion. The great vessels are unremarkable. Specifically, there is no pulmonary arterial filling defect. There is no CT evidence for pulmonary embolism. There are no manifestations for aortic dissection. There is no demonstrable intimal flap. There are no chest wall masses. Review of lung windows demonstrates that there are neither pleural effusions nor pneumothoraces. There is dependent bibasilar airspace disease. There are no consolidations. Again identified are manifestations of emphysema. There are no pulmonary parenchymal nodules. The liver is of normal size and attenuation without focal lesions nor intrahepatic biliary ductal dilation. A normal gallbladder is identified. There is no wall thickening or discernible pericholecystic fluid. The spleen, pancreas, adrenal glands are unremarkable. Both kidneys are of normal size and attenuation without hydronephrosis or nephrolithiasis. Following the administration of IV contrast, prompt symmetric nephrograms are displayed. There is no abdominal free fluid. There is neither mesenteric nor retroperitoneal lymphadenopathy. Normal unopacified loops of small and large bowel are identified. A normal appendix is identified. There is no pelvic free fluid. The urinary bladder is unremarkable. There is neither pelvic nor inguinal lymphadenopathy. Bone windows: Neither sclerotic nor lytic bone lesions are identified. IMPRESSION: No evidence for aortic dissection. No evidence for pulmonary embolism. Dependent bibasilar atelectasis. An addendum will be issued following review by the Interventional Radiology staff. DICTATED BY: Kaleb Carrasco MD DATE/TIME DICTATED:02/27/1849 FILTER ASSEMBLER: LION DATE/TIME TRANSCRIBED:02/27/1849 CONFIDENTIAL, DO NOT COPY WITHOUT APPROPRIATE AUTHORIZATION. <Electronically signed in Other Vendor System> SIGNED BY: Kaleb Carrasco MD 02/27/18 0103 Initial ED EKG: sinus rhythm, left ventricular hypertrophy, anterior ST elevation probably due to LVH (John West) Departure Departure Disposition: HOME OR SELF CARE Condition: Stable Clinical Impression Primary Impression: Flank pain Referrals: Patient Has No Primary Care Dr (PCP/Family) Additional Instructions: Rest, avoid any lifting bending or physical activity. Tylenol 1000MG every 6 hours as needed for pain. Make a follow-up with a primary care doctor to review all results of today's visit. Monitor SYMPOTMS closely return with any concerns. Departure Forms: Customer Survey General Discharge Information Prescriptions: Current Visit Scripts Acetaminophen 2 TAB PO Q6 PRN PAIN #60 TAB (John West) PA/PROCESS DEVELOPMENT TECHNICIAN Co-Sign Statement Statement: ED Attending supervision documentation- x I saw and evaluated the patient. I have also reviewed all the pertinent lab results and diagnostic results. I agree with the findings and the plan of care as documented in the PA's/PROCESS DEVELOPMENT TECHNICIAN's documentation. [] I have reviewed the ED Record and agree with the PA's/PROCESS DEVELOPMENT TECHNICIAN's documentation. [] Additions or exceptions (if any) to the PAs/PROCESS DEVELOPMENT TECHNICIAN's note and plan are summarized below: [] (My CAO,David) Critical Care Note Critical Care Note Critical Care Time: non-applicable (John West)
[2018-02-26 23:36] LABS: ABSOLUTE BASOPHIL COUNT 0 /CUMM (0.0-0.2); ABSOLUTE EOSINOPHIL COUNT 0.1 /CUMM (0.0-0.7); ABSOLUTE GRANULOCYTE CT 4.3 /CUMM (1.4-6.5); ABSOLUTE LYMPH COUNT 1.4 /CUMM (1.2-3.4); ABSOLUTE MONOCYTE COUNT 0.7 /CUMM (0.10-0.60); BASOPHIL % 0.5 % (0.0-2.0); EOSINOPHIL % 1.5 % (0-5); MEAN CORPUSCULAR HGB 31.1 PG (27.0-31.0); MEAN CORPUSCULAR HGB CONC 33.4 G/DL (33.0-37.0); MEAN CORPUSCULAR VOLUME 93.2 FL (80.0-94.0); MEAN PLATELET VOLUME 7.3 FL (7.4-10.4); PLATELET COUNT 310 /CUMM (130-400); RBC DISTRIBUTION WIDTH 13.2 % (11.5-14.5); RED BLOOD CELL CT 3.76 /CUMM (4.70-6.10); WHITE BLOOD CELL COUNT 6.6 /CUMM (4.8-10.8)
--- NOTE | 2018-02-27 01:03 | CT SCAN REPORT ---
EXAMINATION: CTA CHEST, ABDOMEN, PELVIS EXAM FOR AORTIC DISSECTION CLINICAL INFORMATION: Right-sided pain. COMPARISON: February 03, 2018. TECHNIQUE: Contiguous helical images of the chest, abdomen and pelvis were obtained prior to and following the administration of IV contrast. Multiplanar reconstructions were performed. MIPS were obtained and reviewed. 3-D reconstructions will be performed and reviewed by the Interventional Radiology staff. DLP: 964 mGy-cm. CONTRAST: 95 cc of Optiray 320 were administered without incident. FINDINGS: The heart is of normal size. There is no pericardial effusion. The great vessels are unremarkable. Specifically, there is no pulmonary arterial filling defect. There is no CT evidence for pulmonary embolism. There are no manifestations for aortic dissection. There is no demonstrable intimal flap. There are no chest wall masses. Review of lung windows demonstrates that there are neither pleural effusions nor pneumothoraces. There is dependent bibasilar airspace disease. There are no consolidations. Again identified are manifestations of emphysema. There are no pulmonary parenchymal nodules. The liver is of normal size and attenuation without focal lesions nor intrahepatic biliary ductal dilation. A normal gallbladder is identified. There is no wall thickening or discernible pericholecystic fluid. The spleen, pancreas, adrenal glands are unremarkable. Both kidneys are of normal size and attenuation without hydronephrosis or nephrolithiasis. Following the administration of IV contrast, prompt symmetric nephrograms are displayed. There is no abdominal free fluid. There is neither mesenteric nor retroperitoneal lymphadenopathy. Normal unopacified loops of small and large bowel are identified. A normal appendix is identified. There is no pelvic free fluid. The urinary bladder is unremarkable. There is neither pelvic nor inguinal lymphadenopathy. Bone windows: Neither sclerotic nor lytic bone lesions are identified. IMPRESSION: No evidence for aortic dissection. No evidence for pulmonary embolism. Dependent bibasilar atelectasis. An addendum will be issued following review by the Interventional Radiology staff.
[2018-02-27] MEDS ORDERED: ACETAMINOPHEN500 M4 PO (01:13)
[2018-02-27 01:14] VITALS: BP 149/67
== END 2018-02-27 01:26 ==
LOC: ERH 21:06
PROVIDERS: Physician Assistant Medical
DX: R10.9 Unspecified abdominal pain (principal); R07.81 Pleurodynia
CPT/HCPCS: 74174; 81003; 93005; 93010; 96374; J0131